=== PATIENT | female | born 1935 | race Caucasian/White ===

== ENCOUNTER → 2017-07-13 | Outpatient (CLI) | payer MEDICARE ==
[2016-08-08 14:18] VITALS: BMI 23.8
[~2017-07-13] MED LIST: ACE325 PO; ACYC800T99 PO; ADV250/50 INH; ALB17R INH; ALB6.7R INH; ALBU8.5H IH; ALIS1TAB PO; AMLO-109 PO; AMLO-110 PO; ASCO500T; AUG875 PO; AZIT-9 PO; BIS5 PO; CALC-864 PO; CALC250T PO; CLOB15CR22 TP; CLOP75TA65 PO; DOCU100T19 PO; DOXA4TAB57 PO; FENT-89 TD; FLUT1DIS28 IH; FLUT250D IH; GAB300 PO; GUALA600 PO; HYDR473S4 PO; IBU200 PO; LEV500 PO; LIDO700A25 TP; LIT300 PO; LORA-1254 PO; LORA-630 PO; LOSA-54 PO; LOSA-57 PO; LOSA100T62 PO; LOSA100T67 PO; METO50TA19 PO; MOME13HF INH; NEB5 PO; OMEP40CA48 PO; OND4 PO; ONDA4TAB PO; ONDA4TAB9 PO; ONDA4TAB97 PO; OSE75 PO; OXYGEN INH; PER PO; PRE10 PO; PRED20TA6 PO; RABE20TA33; RABE20TA33 PO; RAMI10CA62 PO; VITA200C22; [UNRECOGNIZED DRUG - CODE] PO; sodium chloride PO
[2017-07-13 14:34] LABS: PLATELET COUNT, AUTOMATED 249 K/uL (150-450)
--- NOTE | 2017-07-13 15:00 | EKG ---
[place] [facility] [place] MILVIA LÓPEZ : [id number] MR: [id number] V: [id number] EXAM DATE: ORDERING PHYSICIAN: MINH GARCIA TECHNOLOGIST: PIEDAD RIVAS Test Reason : IRREGULAR HR Blood Pressure : / mmHG Vent. Rate : 093 BPM Atrial Rate : 093 BPM P-R Int : 152 ms QRS Dur : 090 ms QT Int : 344 ms P-R-T Axes : 075 057 069 degrees QTc Int : 427 ms Normal sinus rhythm Nonspecific ST and T wave abnormality Abnormal ECG When compared with ECG of 18-JUN-2013 13:59, T wave inversion now evident in Lateral leads Referred By: RADHA Confirmed By:
== END ==
LOC: LAB 13:46
PROVIDERS: ATTEND Nurse Practitioner Primary Care
DX: R53.1 Weakness (principal); R19.7 Diarrhea, unspecified; R94.31 Abnormal electrocardiogram [ECG] [EKG]
CPT/HCPCS: 36415; 82040; 82247; 82310; 82374; 82435; 82565; 82947; 83880; 84075; 84132; 84155; 84295; 84450; 84460; 84484; 84520; 85025

== ENCOUNTER → 2017-09-12 | Outpatient (CLI) | payer MEDICARE ==
[2016-08-08 14:18] VITALS: BMI 23.8
[~2017-09-12] MED LIST changes: +FLUT1AER INH; +IPRA3AMP21 IH; +TIOT4MIS5 INH
--- NOTE | 2017-09-12 11:15 | RADIOLOGY IMAGING REPORT ---
FACILITY: [facility] PATIENT NAME: Svetlana Hall : 1935 MR: [id number] V: [id number] EXAM DATE: ORDERING PHYSICIAN: MINH GARCIA TECHNOLOGIST: Location: [facility] [place] Patient: Svetlana Hall : 1935 Visit/Account:[id number] Date of Sevice: 09/12/2017 CHEST PA AND LAT COMPARISON: August 07, 2016 single view chest HISTORY: Shortness of breath with wheezing for one week and history of asthma FINDINGS: CARDIAC/VASC: No cardiac silhouette abnormality or cardiomegaly. Unremarkable pulmonary vasculatu re. MEDIASTINUM: No visible mass or adenopathy. Atherosclerotic calcifications in the aortic arch. LUNGS/PLEURA: No pneumothorax. There is a new linear opacity adjacent to the right hilum consistent with minor atelectasis or scarring. No significant pulmonary parenchymal abnormalities. No effusion or pleural thickening. BONES: No fracture or visible bony lesion. Minor thoracic spine degenerative change. OTHER:Negative. IMPRESSION: Right perihilar atelectasis or scarring which is new from July 2016. Report Dictated By: Pacheco Burks at 09/12/2017 11:08 AM Report E-Signed By: Pacheco Burks at 09/12/2017 11:10 AM WSN:[id number]
== END ==
LOC: RAD 10:24
PROVIDERS: ATTEND Nurse Practitioner Primary Care
DX: I70.0 Atherosclerosis of aorta (principal); R91.8 Other nonspecific abnormal finding of lung field
CPT/HCPCS: 71046

== ENCOUNTER → 2017-09-23 | Outpatient (CLI) | payer MEDICARE ==
[2016-08-08 14:18] VITALS: BMI 23.8
[~2017-09-23] MED LIST changes: +FURO-45 PO; +METO100T20 PO; +NEBU1EAC25 INH; +PNEU0.5D3 IM
[2017-09-23 10:00] LABS: PLATELET COUNT, AUTOMATED 268 K/uL (150-450)
== END ==
LOC: LAB 09:24
PROVIDERS: ATTEND Internal Medicine
DX: J45.909 Unspecified asthma, uncomplicated (principal); I10 Essential (primary) hypertension; E22.2 Syndrome of inappropriate secretion of antidiuretic hormone
CPT/HCPCS: 36415; 82040; 82247; 82310; 82374; 82435; 82565; 82947; 84075; 84132; 84155; 84295; 84443; 84450; 84460; 84520; 85025

== ENCOUNTER → 2017-10-20 | Outpatient (CLI) | payer MEDICARE ==
[2016-08-08 14:18] VITALS: BMI 23.8
[~2017-10-20] MED LIST changes: +OMEP-125 PO
[2017-10-20 09:23] LABS: PLATELET COUNT, AUTOMATED 259 K/uL (150-450)
== END ==
LOC: LAB 08:56
PROVIDERS: ATTEND Internal Medicine
DX: I10 Essential (primary) hypertension (principal); E87.1 Hypo-osmolality and hyponatremia; E22.2 Syndrome of inappropriate secretion of antidiuretic hormone
CPT/HCPCS: 36415; 82040; 82247; 82310; 82374; 82435; 82565; 82947; 84075; 84132; 84155; 84295; 84450; 84460; 84520; 85025

== ENCOUNTER → 2017-11-11 | Outpatient (CLI) | payer MEDICARE ==
[2016-08-08 14:18] VITALS: BMI 23.8
[~2017-11-11] MED LIST changes: +AZIT-17 PO; +MAGN400T36 PO; +PRED-420 PO; +SODCTAB PO
[2017-11-11 09:42] LABS: PLATELET COUNT, AUTOMATED 239 K/uL (150-450)
== END ==
LOC: LAB 09:28
PROVIDERS: ATTEND Internal Medicine
DX: J45.901 Unspecified asthma with (acute) exacerbation (principal); I10 Essential (primary) hypertension; E87.1 Hypo-osmolality and hyponatremia; E22.2 Syndrome of inappropriate secretion of antidiuretic hormone
CPT/HCPCS: 36415; 82040; 82247; 82310; 82374; 82435; 82565; 82947; 83735; 84075; 84132; 84155; 84295; 84450; 84460; 84520; 85025

== ENCOUNTER 2017-11-14 11:57 | Inpatient (IN) | payer MEDICARE ==
[~2017-11-14] VITALS: Ht 147.3 cm; Wt 53.8 kg
[~2017-11-14 11:57] MED LIST changes: -SODCTAB PO
[2017-11-14 12:25] VITALS: BP 177/78
[2017-11-14] MEDS ORDERED: NON-FORMULARY MEDICATION MISCELL (Oxygen 2 L) INH SCH (12:35)
[2017-11-14] MEDS ORDERED: ALBUTEROL 2.5 MG/3 ML NEB NEB PRN (12:35)
[2017-11-14] MEDS ORDERED: SODCTAB PO (12:41)
--- NOTE | 2017-11-14 12:51 | EKG ---
FACILITY: [facility] PATIENT NAME: MILVIA LÓPEZ : [id number] MR: [id number] V: [id number] EXAM DATE: ORDERING PHYSICIAN: RICHARD LYLES TECHNOLOGIST: ARIANNA Zacarias Reason : SOB Blood Pressure : / mmHG Vent. Rate : 071 BPM Atrial Rate : 071 BPM P-R Int : 150 ms QRS Dur : 092 ms QT Int : 386 ms P-R-T Axes : 058 034 029 degrees QTc Int : 419 ms Sinus rhythm with premature supraventricular complexes Decreased R wave progression anteriorly No acute appearing ST-T findings Confirmed by DAMON VOSS ([id number]) on 11/14/2017 12:54:37 PM Referred By: RAFAL Confirmed By:DAMON VOSS
[2017-11-14 14:19] LABS: PLATELET COUNT, AUTOMATED 290 K/uL (150-450)
--- NOTE | 2017-11-14 14:40 | History & Physical - General ---
History of Present Illness Chief Complaint Shortness of breath and wheezing History of Present Illness This patient is a pleasant 82-year-old female well-known to me who came in today for the follow-up of difficulty breathing patient was seen here on because of dyspnea on exertion and wheezing cough without any sputum production she was placed on prednisone 10 mg 3 times a day and Z-Juancarlos she usually takes oxygen at night but does not use it during the daytime however she was advised to use oxygen during the daytime also she did not have any fever or chills she also has DuoNeb nebulizer at home that she is using 4 times a day she return for follow-up visit today to the office and mentioned that she has not been feeling any better her room air oxygen saturation was 88-89% with 2 -3 L she was more than 90%. She was having visible difficulty breathing when she came in but after one nebulizer treatment with DuoNeb and resting for 15 minutes she improved. Chest x-ray done today has not shown any CHF I worry does show hyperinflation and prominent hilar shadow she also had right perihilar scarring/atelectasis. She has no history of congestive heart failure Hospital history significant for hypertension and is currently on losartan and metoprolol but blood pressures are still elevated Past medical history significant for hyponatremia and is on sodium chloride tablets 1 g every day which might be contributing to her elevated blood pressures ROS: Constitutional: Reports: Weakness, Denies: Fever, Chills, Malaise, Diaphoresis, Weight Loss ROS: Eyes: Denies: Eye Pain, Itchy Eye ROS: HENT: Denies: Ear Drainage, Ear Pain, Ear Pressure ROS: Neurological: Denies Syncope, Denies Dizziness, Denies Vertigo ROS: Respiratory: Reports Dyspnea, Reports SOB at Rest, Reports SOB w/ Exertion , Reports Wheezing, Reports Non-Productive Cough ROS: Cardiac: Denies Chest Pain at Rest, Denies Palpitations, Denies Peripheral Edema ROS: Gastrointestinal: Denies Nausea, Denies Vomiting, Denies Diarrhea ROS: Genitourinary: Denies Urinary Frequency, Denies Dyuria, Denies Hematuria ROS: Integumentary: Denies Rash, Denies Lesions, Denies Laceration ROS: Psych: Denies Depression, Denies Anxiety, Denies Insomnia ROS: Endocrine: Denies Intolerence to Heat, Denies Intolerence to Cold History Problems: (1) GERD (gastroesophageal reflux disease) Status: Chronic (2) TIA (transient ischemic attack) Status: Chronic (3) Low back pain Status: Chronic (4) Asthma Status: Chronic (5) SIADH (syndrome of inappropriate ADH production) Status: Chronic (6) Hyponatremia Status: Chronic (7) Hypertension Status: Chronic (8) Asthma exacerbation Status: Acute Home Meds Active Scripts Magnesium Oxide (MAGNESIUM OXIDE) 400 Mg Tablet, 400 MG PO QDAY, #90 TAB 1 Refill Prov:RICHARD LYLES MD 11/14/17 Prednisone 10 Mg Tab (PREDNISONE 10 MG TAB) 10 Mg Tab.ds.pk, 10 MG PO TID, #21 TAB Prov:RICHARD LYLES MD 11/11/17 Azithromycin (Z-PACK) 250 Mg Tablet, 1 DOSE-PACK PO DIRECTED, #1 DOSE-PACK 2 TABLETS DAY ONE THEN 1 TABLET EVERY DAY FOR THE NEXT 4 DAYS. Prov:RICHARD LYLES MD 11/11/17 Furosemide (FUROSEMIDE) 20 Mg Tablet, 1 TAB PO QDAY, #30 TAB 3 Refills Prov:RICHARD LYLES MD 09/23/17 Losartan Potassium (LOSARTAN POTASSIUM) 100 Mg Tablet, 100 MG PO QDAY, #90 TAB 3 Refills Prov:RICHARD LYLES MD 09/23/17 Ipratropium/Albuterol Sulfate (IPRAT-ALBUT 0.5-3(2.5) MG/3 ML) 3 Ml Ampul.neb, 3 ML IH QID Y for SHORTNESS OF BREATH, #100 ML 6 Refills Prov:RICHARD LYLES MD 09/23/17 Nebulizer (Aeroneb Go Nebuliser) 1 Each Each, UNIT INH for asthma, #1 Prov:RICHARD LYLES MD 09/23/17 Metoprolol Succinate (METOPROLOL SUCCINATE) 100 Mg Tab.er.24h, 1 TAB PO QDAY, # 90 TAB 2 Refills Prov:RICHARD LYLES MD 09/23/17 Albuterol Sulfate 90 Mcg/Act (PROAIR HFA 90 MCG/ACT) 8.5 Gm Hfa.aer.ad, 2 PUFF IH QID, #3 INHALER 3 Refills Prov:ALEM CHEEMA MD 05/02/17 Reported Medications Sodium Chloride (SODIUM CHLORIDE) 1 Gm Tab, 1 GM PO DAILY, TAB 11/14/17 Omeprazole (OMEPRAZOLE) 20 Mg Capsule.dr, 1 CAP PO QDAY, CAP 09/29/17 Oxygen (Oxygen) 2 L Inha, 2 L INH HS 10/03/12 Clopidogrel Bisulfate (PLAVIX (OR EQUIV)) 75 Mg Tab, 75 MG PO DAILY, #30 0 Refills 05/11/12 Discontinued Reported Medications Magnesium Oxide (MAGNESIUM OXIDE) 400 Mg Tablet, 400 MG PO DAILY 11/11/17 Calcium Carb & Cit/Vitamin D3 (CITRACAL + D ER TABLET) 1 Each Tablet.er, 3 EACH PO DAILY 02/11/17 Discontinued Scripts Fluticasone/Salmeterol (ADVAIR 250-50 DISKUS) 1 Each Disk.w.dev, 1 EACH IH BID, #1 DISK 4 Refills Prov:RICHARD LYLES MD 11/11/17 [sodium chloride ] No Conflict Check, 1 GM PO QDAY, #90 1 Refill Prov:RICHARD LYLES MD 10/20/17 Allergies: Coded Allergies: montelukast (Verified Allergy, Mild, ITCHING AND RASH, 08/07/16) phenobarbital (Verified Allergy, Mild, RASH, 08/07/16) Patient History: Blood clots FATHER, Cervical cancer CHILD, , Age:59 Diabetes mellitus CHILD CHILD FH: breast cancer siblings x 8 ( sister ) FH: heart attack FATHER, MOTHER, siblings x 8 (Brother) No pertinent family history CHILD CHILD Hx Smoking: No Smoking Status: Never Smoker Exposure to Second Hand Smoke?: Yes Caffeine Intake: Coffee, Soda Caffeine/Cups Per Day: 1C/day Hx Alcohol Use: Yes Hx Substance Use Disorder: No Social Drug Use: Never Exam Constitutional: Well Nourished, Well Developed, No Distress Eyes: PERRL, Conjunctivae Clear, Sclera Clear ENT: Normal Neck: Full Range of Motion All [place]: Prolonged Expiratory Phase, Expiratory Wheezes, Ronchi Cardiac: Regular Rate & Rhythm, No Gallop, No JVD, No Murmur, No Edema Inspection: Flat Percussion: All Quadrants Tympanic Palpation: Soft, Non-tender, No Guarding, No Hepatosplenomegaly Bowel Sounds: Active to all 4 Quadrants Lymph: No Cervical Lymphadenopathy Neurological: Alert & Oriented X3, Cranial Nerves II-XII Intact, Deep Tendon Reflexes Intact Medical Decision Making Data Points Result Diagram: 11/14/17 1311 11/14/17 1311 EKG / Imaging Monitor Interpretation: NSR with PACs Assessment and Plan Problems: (1) Asthma exacerbation Status: Acute Assessment & Plan: Patient has asthma exacerbation likely related to acute bronchitis she did not respond to by mouth prednisone and antibiotics at home plan is to admit her to the hospital and placed on IV steroids along with nebulizer treatment and continue Zithromax (2) Hyponatremia Status: Chronic Assessment & Plan: Patient has history of chronic hyponatremia 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 Today I want to give her 1 L of IV fluids she is also on furosemide and will recheck labs tomorrow (3) SIADH (syndrome of inappropriate ADH production) Status: Chronic Assessment & Plan: Likely cause of hyponatremia (4) Hypertension Status: Chronic Assessment & Plan: Blood pressure is elevated patient is currently on losartan and metoprolol and will continue with that and monitor blood pressure (5) GERD (gastroesophageal reflux disease) Status: Chronic Venous Thromboembolism VTE Risk Physician Assess for VTE Risk: Yes Patient's VTE Risk: Low VTE Diagnostic Test 2 Days Prior to Admit: No Antithrombotics Is Pt On Any Antithrombotics?: Yes RICHARD LYLES MD Nov 14, 2017 14:40
[2017-11-14] MEDS: ALBUTEROL 2.5 MG/3 ML NEB NEB SCH (17:02)
[2017-11-14] MEDS: SALMETEROL/FLUTIC 250/50 1 INH INH SCH (17:08)
[2017-11-14 17:30] VITALS: BP 143/87
[2017-11-14] MEDS: KCL/NS* 20 MEQ/1000 ML PREMIX 1,000 ML IV PRN (17:41)
[2017-11-14] MEDS: methylPREDNIS SUCC 125 MG/2ML IVP SCH (17:42)
[2017-11-14 19:02] VITALS: BP 139/62
[2017-11-14] MEDS: MAGNESIUM OXIDE 400 MG TAB PO SCH (20:14)
[2017-11-15] MEDS: methylPREDNIS SUCC 125 MG/2ML IVP SCH ×3 (00:39→17:38)
[2017-11-15 00:42] VITALS: BP 123/73
[2017-11-15] MEDS: KCL/NS* 20 MEQ/1000 ML PREMIX 1,000 ML IV PRN (05:23)
[2017-11-15 05:24] VITALS: BP 174/86
[2017-11-15] MEDS: SALMETEROL/FLUTIC 250/50 1 INH INH SCH ×2 (05:42→16:58)
[2017-11-15] MEDS: ALBUTEROL 2.5 MG/3 ML NEB NEB SCH ×3 (05:42→16:58)
[2017-11-15 06:09] LABS: PLATELET COUNT, AUTOMATED 241 K/uL (150-450)
[2017-11-15 07:56] VITALS: BP 145/65
[2017-11-15] MEDS ORDERED: IOPAMIDOL 76% 75 ML INFUS BTL 75 ML ONE (08:14)
[2017-11-15] MEDS ORDERED: MAGNESIUM OXIDE 400 MG TAB PO SCH (09:00)
[2017-11-15] MEDS: ENOXAPARIN 40 MG/0.4ML SYR SC SCH (09:33)
[2017-11-15] MEDS: METOPROLOL SUCC XL 50 MG TABCR 50 MG TAB.ER.24H PO SCH (09:33)
[2017-11-15] MEDS: PANTOPRAZOLE SOD 40 MG TABEC PO SCH (09:33)
[2017-11-15] MEDS: LOSARTAN POTASSIUM 50 MG TAB PO SCH (09:33)
[2017-11-15] MEDS: FUROSEMIDE 20 MG TAB PO SCH (09:33)
[2017-11-15] MEDS: CLOPIDOGREL BISULFATE 75MG TAB PO SCH (09:33)
[2017-11-15] MEDS: MAGNESIUM OXIDE 400 MG TAB PO SCH ×2 (09:34→20:32)
[2017-11-15] MEDS: AZITHROMYCIN 250 MG TAB PO SCH (09:34)
--- NOTE | 2017-11-15 09:40 | RADIOLOGY IMAGING REPORT ---
FACILITY: [facility] PATIENT NAME: Svetlana Hall : 1935 MR: [id number] V: [id number] EXAM DATE: ORDERING PHYSICIAN: RICHARD LYLES TECHNOLOGIST: Location: [facility] [place] Patient: Svetlana Hall : 1935 Visit/Account:[id number] Date of Sevice: 11/15/2017 CHEST W W/O CONTRAST History: asthma, cough ADDITIONAL CLINICAL HISTORY: None TECHNIQUE: Contiguous axial images were performed through the chest to the level of the adrenal gla nds with and without IV contrast. Coronal and sagittal reformatting was also performed. Dose Loweri ng Technique One of the following dose optimization techniques was utilized in the performance of this exam: Autom ated exposure control; adjustment of the mA and/or kV according to the patient's size; or use of an i terative reconstruction technique. Specific details can be referenced in the facility's radiology C T exam operational policy. Contrast: 75 mL Isovue-370 COMPARISON STUDIES: Single view chest February 04, 2017. Lungs / Pleura: There Is a small amount of airspace consolidation in the dependent portion of both l ower lobes and inferior lingula and right middle lobe which could represent small amount scarring cris edie atelectasis. Coarse linear stranding in the inferior right upper lobe also consistent with scarr ing versus atelectasis. There is central peribronchial thickening bilaterally Mediastinum/nodes: There are multiple AP window lymph nodes the largest measuring approximately 1.9 x 0.8 cm. There are multiple pretracheal lymph nodes the largest measuring 1.4 x 1.1 cm. There Is a right hilar lymph node measuring 1.3 x 1.1 cm. There is a small amount of ill-defined soft tissue density material surrounding the left lower lobe b ronchovascular bundle. The appearance is nonspecific and could represent atelectasis, adenopathy or mass lesion. Heart and vessels: There are mild calcifications in the thoracic aorta and branch vessels Musculoskeletal / Body wall: Gentle S-shaped scoliosis of the thoracolumbar spine with mild spondyl otic changes Upper abdomen: There is a 1.1 cm round hypodensity interpolar region of the left kidney likely repr esenting cyst. Additional smaller cortical hypodensities may represent cysts as well although are to o small to characterize by CT. There is a small hiatal hernia IMPRESSION: There is a small amount of airspace consolidation in the dependent portion of both lower lobes and in ferior lingula and right middle lobe which could represent scarring versus atelectasis. Coarse linear stranding in the inferior right upper lobe also consistent with scarring versus atelect asis There are central peribronchial thickening bilaterally which could be chronic versus an acute peribro nchial inflammatory process. There is a small amount of ill-defined soft tissue density material surrounding the left lower lobe b ronchovascular bundle. The appearance is nonspecific and could represent atelectasis, adenopathy or mass lesion. Short-term interval follow-up recommended Mild mediastinal and right hilar adenopathy which could be reactive although again short-term follow- up recommended. Left renal cyst Small hiatal hernia Report Dictated By: Louisa Cannon MD at 11/15/2017 9:07 AM Report E-Signed By: Louisa Cannon MD at 11/15/2017 9:36 AM CAREYN:NILAY
--- NOTE | 2017-11-15 12:18 | Hospitalist Progress Note ---
Subjective Since seen today for the follow-up she mentioned that she is feeling a little better but still gets short of breath easily and has been coughing but not aiming to bring phlegm. She denies any chest pain blood pressure has been improving sodium is slightly improved CT scan of the chest has been reviewed no obvious pneumonia noted although she does have some abnormalities she's currently on Solu-Medrol IV and Z-Juancarlos along with nebulizer treatment and Advair Is requiring oxygen at 1.5 L/m and has remained afebrile Physical Exam Vital Signs Date Time Temp Pulse Resp B/P (MAP) Pulse Ox O2 Delivery O2 Flow Rate FiO2 11/15/17 11:05 75 20 11/15/17 10:59 93 Nasal Cannula 1.5 11/15/17 07:56 97.8 145/65 (91) Intake and Output 11/16/17 07:00 # Voids 2 # Bowel Movements 2 General Appearance: Alert, Awake, No Acute Distress, Afebrile Neuro: No Gross deficits Eyes: PERRLA Neck: Other (bilateral air entry with prolonged expiration and occasional rhonchi) Cardiovascular: Normal Rhythm & Peripheral Pulses, Regular Rate and Rhythm, No Edema Musculoskeletal: No Weakness/Pain Result Diagram: 11/15/17 0551 11/15/17 0551 Imaging ocation: [facility] [place] Patient: Svetlana Hall : 1935 Visit/Account:[id number] Date of Sev: 11/15/2017 CHEST W W/O CONTRAST History: asthma, cough ADDITIONAL CLINICAL HISTORY: None TECHNIQUE: Contiguous axial images were performed through the chest to the level of the adrenal glands with and without IV contrast. Coronal and sagittal reformatting was also performed. Dose Lowering Technique One of the following dose optimization techniques was utilized in the performance of this exam: Automated exposure control; adjustment of the mA and/ or kV according to the patient's size; or use of an iterative reconstruction technique. Specific details can be referenced in the facility's radiology CT exam operational policy. Contrast: 75 mL Isovue-370 COMPARISON STUDIES: Single view chest February 04, 2017. Lungs / Pleura: There Is a small amount of airspace consolidation in the dependent portion of both lower lobes and inferior lingula and right middle lobe which could represent small amount scarring versus atelectasis. Coarse linear stranding in the inferior right upper lobe also consistent with scarring versus atelectasis. There is central peribronchial thickening bilaterally Mediastinum/nodes: There are multiple AP window lymph nodes the largest measuring approximately 1.9 x 0.8 cm. There are multiple pretracheal lymph nodes the largest measuring 1.4 x 1.1 cm. There Is a right hilar lymph node measuring 1.3 x 1.1 cm. There is a small amount of ill-defined soft tissue density material surrounding the left lower lobe bronchovascular bundle. The appearance is nonspecific and could represent atelectasis, adenopathy or mass lesion. Heart and vessels: There are mild calcifications in the thoracic aorta and branch vessels Musculoskeletal / Body wall: Gentle S-shaped scoliosis of the thoracolumbar spine with mild spondylotic changes Upper abdomen: There is a 1.1 cm round hypodensity interpolar region of the left kidney likely representing cyst. Additional smaller cortical hypodensities may represent cysts as well although are too small to characterize by CT. There is a small hiatal hernia IMPRESSION: There is a small amount of airspace consolidation in the dependent portion of both lower lobes and inferior lingula and right middle lobe which could represent scarring versus atelectasis. Coarse linear stranding in the inferior right upper lobe also consistent with scarring versus atelectasis There are central peribronchial thickening bilaterally which could be chronic versus an acute peribronchial inflammatory process. There is a small amount of ill-defined soft tissue density material surrounding the left lower lobe bronchovascular bundle. The appearance is nonspecific and could represent atelectasis, adenopathy or mass lesion. Short-term interval follow-up recommended Mild mediastinal and right hilar adenopathy which could be reactive although again short-term follow-up recommended. Left renal cyst Monitor Interpretation: NSR with PACs Assessment and Plan Problems: (1) Asthma exacerbation Status: Acute Assessment & Plan: 11/14/17 Patient has asthma exacerbation likely related to acute bronchitis she did not respond to by mouth prednisone and antibiotics at home plan is to admit her to the hospital and placed on IV steroids along with nebulizer treatment and continue Zithromax 11/15/17 physical little better but continues to be short of breath and is coughing without bringing up any sputum CT scan of the chest has been reviewed plan is to continue with IV steroids and nebulizer and Advair along with Zithromax and reevaluate tomorrow (2) Hyponatremia Status: Chronic Assessment & Plan: 11/14/17 Patient has history of chronic hyponatremia 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 Today I want to give her 1 L of IV fluids she is also on furosemide and will recheck labs tomorrow 11/15/17 sodium slightly better at 127 plan is to discontinue IV fluids and restart her on sodium chloride tablets at 500 mg twice a day we will recheck sodium levels tomorrow (3) SIADH (syndrome of inappropriate ADH production) Status: Chronic Assessment & Plan: Likely cause of hyponatremia (4) Hypertension Status: Chronic Assessment & Plan: Blood pressure is elevated patient is currently on losartan and metoprolol and will continue with that and monitor blood pressure 11/15/17 blood pressure appears to have improved we will continue with losartan and metoprolol hydrochlorothiazide was discontinued because of hyponatremia and has been placed on furosemide seems to be tolerating it well (5) GERD (gastroesophageal reflux disease) Status: Chronic Exam Sepsis Risk: No Definite Risk Problem Qualifiers (1) Asthma exacerbation: Asthma severity: moderate Asthma persistence: persistent Qualified Codes: J45.41 - Moderate persistent asthma with (acute) exacerbation RICHARD LYLES MD November 15, 2017 12:18
[2017-11-15 12:34] VITALS: BP 129/99
[2017-11-15] MEDS: guaiFENesin 600 MG TABCR PO SCH ×2 (12:36→20:31)
[2017-11-15 12:41] VITALS: Ht 147.3 cm; Wt 53.8 kg
[2017-11-15 15:15] VITALS: BP 136/81
[2017-11-15 20:07] VITALS: BP 154/75
[2017-11-15] MEDS: SODIUM CHLORIDE 1 GR TAB PO SCH (20:31)
[2017-11-16] MEDS: methylPREDNIS SUCC 125 MG/2ML IVP SCH ×2 (01:31→08:48)
[2017-11-16 01:32] VITALS: BP 144/71
[2017-11-16] MEDS: ALBUTEROL 2.5 MG/3 ML NEB NEB SCH ×2 (05:24→11:08)
[2017-11-16] MEDS: SALMETEROL/FLUTIC 250/50 1 INH INH SCH (05:24)
[2017-11-16 06:18] VITALS: BP 128/51
[2017-11-16] MEDS: ENOXAPARIN 40 MG/0.4ML SYR SC SCH (08:48)
[2017-11-16] MEDS: CLOPIDOGREL BISULFATE 75MG TAB PO SCH (08:49)
[2017-11-16] MEDS: SODIUM CHLORIDE 1 GR TAB PO SCH (08:49)
[2017-11-16] MEDS: guaiFENesin 600 MG TABCR PO SCH (08:49)
[2017-11-16] MEDS: AZITHROMYCIN 250 MG TAB PO SCH (08:49)
[2017-11-16] MEDS: MAGNESIUM OXIDE 400 MG TAB PO SCH (08:49)
[2017-11-16] MEDS: METOPROLOL SUCC XL 50 MG TABCR 50 MG TAB.ER.24H PO SCH (08:50)
[2017-11-16] MEDS: LOSARTAN POTASSIUM 50 MG TAB PO SCH (08:50)
[2017-11-16] MEDS: FUROSEMIDE 20 MG TAB PO SCH (08:50)
[2017-11-16] MEDS: PANTOPRAZOLE SOD 40 MG TABEC PO SCH (08:50)
[2017-11-16 08:51] VITALS: BP 126/57
[2017-11-16] MEDS ORDERED: PRED-420 PO (11:58)
[2017-11-16] MEDS ORDERED: FLUT1DIS28 INH (11:58)
[2017-11-16] MEDS ORDERED: SODCTAB PO (11:58)
[2017-11-16] MEDS ORDERED: GUAI600T57 PO (11:58)
--- NOTE | 2017-11-17 08:58 | Hospitalist Depart ---
Discharge Summary Reason for Hosp/Final Diag: (1) Asthma exacerbation Status: Acute Hospital Course & Plan: 11/14/17 Patient has asthma exacerbation likely related to acute bronchitis she did not respond to by mouth prednisone and antibiotics at home plan is to admit her to the hospital and placed on IV steroids along with nebulizer treatment and continue Zithromax 11/15/17 physical little better but continues to be short of breath and is coughing without bringing up any sputum CT scan of the chest has been reviewed plan is to continue with IV steroids and nebulizer and Advair along with Zithromax and reevaluate tomorrow 11/16/17 and was admitted because of acute asthma exacerbation likely related to acute bronchitis. Patient responded well to treatment with Solu-Medrol, nebulizer treatment and Advair she was continued on Zithromax today she is feeling better she is coughing but able to bring up clear to light yellow phlegm since she has been on Mucinex overall she is less short of breath and request to go home but it did show ill-defined soft tissue density in the left lower lobe could be atelectasis adenopathy or mass she also has mild mediastinal and right hilar adenopathy and the plan is to repeat CT scan in 6 weeks patient is also to follow up with me within one week she will be discharged on tapering dose of prednisone, Zithromax albuterol/ipratropium by nebulizer and Advair she has oxygen at home and will continue to use it she is to contact the the office or go to the emergency room if symptoms get worse (2) Hyponatremia Status: Chronic Hospital Course & Plan: 11/14/17 Patient has history of chronic hyponatremia 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 Hospital Course & Plan: Likely cause of hyponatremia (4) Hypertension Status: Chronic Hospital Course & Plan: Blood pressure is elevated patient is currently on losartan and metoprolol and will continue with that and monitor blood pressure 11/15/17 blood pressure appears to have improved we will continue with losartan and metoprolol hydrochlorothiazide was discontinued because of hyponatremia and has been placed on furosemide seems to be tolerating it well 11/16/17 blood pressure appears to be under better control and will continue with the present treatment (5) GERD (gastroesophageal reflux disease) Status: Chronic Departure Weight (Pounds): 118 Weight (Ounces): 9.0 Result Diagram: 11/15/17 0551 11/16/17 0705 Imaging CHEST W W/O CONTRAST History: asthma, cough ADDITIONAL CLINICAL HISTORY: None TECHNIQUE: Contiguous axial images were performed through the chest to the level of the adrenal glands with and without IV contrast. Coronal and sagittal reformatting was also performed. Dose Lowering Technique One of the following dose optimization techniques was utilized in the performance of this exam: Automated exposure control; adjustment of the mA and/ or kV according to the patient's size; or use of an iterative reconstruction technique. Specific details can be referenced in the facility's radiology CT exam operational policy. Contrast: 75 mL Isovue-370 COMPARISON STUDIES: Single view chest February 04, 2017. Lungs / Pleura: There Is a small amount of airspace consolidation in the dependent portion of both lower lobes and inferior lingula and right middle lobe which could represent small amount scarring versus atelectasis. Coarse linear stranding in the inferior right upper lobe also consistent with scarring versus atelectasis. There is central peribronchial thickening bilaterally Mediastinum/nodes: There are multiple AP window lymph nodes the largest measuring approximately 1.9 x 0.8 cm. There are multiple pretracheal lymph nodes the largest measuring 1.4 x 1.1 cm. There Is a right hilar lymph node measuring 1.3 x 1.1 cm. There is a small amount of ill-defined soft tissue density material surrounding the left lower lobe bronchovascular bundle. The appearance is nonspecific and could represent atelectasis, adenopathy or mass lesion. Heart and vessels: There are mild calcifications in the thoracic aorta and branch vessels Musculoskeletal / Body wall: Gentle S-shaped scoliosis of the thoracolumbar spine with mild spondylotic changes Upper abdomen: There is a 1.1 cm round hypodensity interpolar region of the left kidney likely representing cyst. Additional smaller cortical hypodensities may represent cysts as well although are too small to characterize by CT. There is a small hiatal hernia IMPRESSION: There is a small amount of airspace consolidation in the dependent portion of both lower lobes and inferior lingula and right middle lobe which could represent scarring versus atelectasis. Coarse linear stranding in the inferior right upper lobe also consistent with scarring versus atelectasis There are central peribronchial thickening bilaterally which could be chronic versus an acute peribronchial inflammatory process. There is a small amount of ill-defined soft tissue density material surrounding the left lower lobe bronchovascular bundle. The appearance is nonspecific and could represent atelectasis, adenopathy or mass lesion. Short-term interval follow-up recommended Mild mediastinal and right hilar adenopathy which could be reactive although again short-term follow-up recommended. Left renal cyst Small hiatal hernia Report Dictated By: Louisa Cannon MD at 11/15/2017 9:07 AM Report E-Signed By: Louisa Cannon MD at 11/15/2017 9:36 A Condition: Improved Discharge: Home, Self Care Time Spent: < 30 min Discharge Instructions Home Meds Active Scripts Prednisone 10 Mg Tab (PREDNISONE 10 MG TAB) 10 Mg Tab.ds.pk, 10 MG PO DAILY, # 40 TAB 4 tablets x 3 days 3 tablets x 3 days 2 tablets x 3 days 1 tablet x 3 days .5 tablets x 3 days than stop Prov:RICHARD CHERY MD 11/16/17 Sodium Chloride (SODIUM CHLORIDE) 1 Gm Tab, 0.5 GM PO BID, #30 TAB 6 Refills Prov:RICHARD CHERY MD 11/16/17 Guaifenesin (MUCINEX) 600 Mg Tablet.er, 600 MG PO BID Y for cough, #30 TAB 1 Refill Prov:RICHARD CHERY MD 11/16/17 Fluticasone/Salmeterol (ADVAIR 250-50 DISKUS) 1 Each Disk.w.dev, 1 EACH INH BIDR , #1 DISK 3 Refills Prov:RICHARD CHERY MD 11/16/17 Magnesium Oxide (MAGNESIUM OXIDE) 400 Mg Tablet, 400 MG PO QDAY, #90 TAB 1 Refill Prov:RICHARD CEHRY MD 11/14/17 Azithromycin (Z-PACK) 250 Mg Tablet, 1 DOSE-PACK PO DIRECTED, #1 DOSE-PACK 2 TABLETS DAY ONE THEN 1 TABLET EVERY DAY FOR THE NEXT 4 DAYS. Prov:RICHARD CHERY MD 11/11/17 Furosemide (FUROSEMIDE) 20 Mg Tablet, 1 TAB PO QDAY, #30 TAB 3 Refills Prov:RICHARD CHERY MD 09/23/17 Losartan Potassium (LOSARTAN POTASSIUM) 100 Mg Tablet, 100 MG PO QDAY, #90 TAB 3 Refills Prov:RICHARD CHERY MD 09/23/17 Ipratropium/Albuterol Sulfate (IPRAT-ALBUT 0.5-3(2.5) MG/3 ML) 3 Ml Ampul.neb, 3 ML IH QID Y for SHORTNESS OF BREATH, #100 ML 6 Refills Prov:RICHARD CHERY MD 09/23/17 Nebulizer (Aeroneb Go Nebuliser) 1 Each Each, UNIT INH for asthma, #1 Prov:RICHARD CHERY MD 09/23/17 Metoprolol Succinate (METOPROLOL SUCCINATE) 100 Mg Tab.er.24h, 1 TAB PO QDAY, # 90 TAB 2 Refills Prov:RICHARD CHERY MD 09/23/17 Albuterol Sulfate 90 Mcg/Act (PROAIR HFA 90 MCG/ACT) 8.5 Gm Hfa.aer.ad, 2 PUFF IH QID, #3 INHALER 3 Refills Prov:ALEM CHEEMA MD 05/02/17 Reported Medications Omeprazole (OMEPRAZOLE) 20 Mg Capsule.dr, 1 CAP PO QDAY, CAP 09/29/17 Oxygen (Oxygen) 2 L Inha, 2 L INH HS 10/03/12 Clopidogrel Bisulfate (PLAVIX (OR EQUIV)) 75 Mg Tab, 75 MG PO DAILY, #30 0 Refills 05/11/12 Discontinued Reported Medications Sodium Chloride (SODIUM CHLORIDE) 1 Gm Tab, 1 GM PO DAILY, TAB 11/14/17 Magnesium Oxide (MAGNESIUM OXIDE) 400 Mg Tablet, 400 MG PO DAILY 11/11/17 Calcium Carb & Cit/Vitamin D3 (CITRACAL + D ER TABLET) 1 Each Tablet.er, 3 EACH PO DAILY 02/11/17 Discontinued Scripts Prednisone 10 Mg Tab (PREDNISONE 10 MG TAB) 10 Mg Tab.ds.pk, 10 MG PO TID, #21 TAB Prov:RICHARD CHERY MD 11/11/17 Fluticasone/Salmeterol (ADVAIR 250-50 DISKUS) 1 Each Disk.w.dev, 1 EACH IH BID, #1 DISK 4 Refills Prov:RICHARD CHERY MD 11/11/17 [sodium chloride ] No Conflict Check, 1 GM PO QDAY, #90 1 Refill Prov:RICHARD CHERY MD 10/20/17 Diet: Regular Activity: As Tolerated Special Instructions: Dr Chery's office will call you with a follow up appointment time Venous Thromboembolism Antithrombotics Is Pt On Any Antithrombotics?: Yes Problem Qualifiers (1) Asthma exacerbation: Asthma severity: moderate Asthma persistence: persistent Qualified Codes: J45.41 - Moderate persistent asthma with (acute) exacerbation RICHARD CHERY MD November 17, 2017 08:58
== END 2017-11-16 12:11 | disposition home or self-care (01) | DRG 202 ==
LOC: MED 11:57 → OBSVTOIN 11:57 → INTOOBSV 11:57
PROVIDERS: ADMIT Internal Medicine; ATTEND Internal Medicine
DX: J45.41 Moderate persistent asthma with (acute) exacerbation (principal); E22.2 Syndrome of inappropriate secretion of antidiuretic hormone; I10 Essential (primary) hypertension; K21.9 Gastro-esophageal reflux disease without esophagitis; Z86.73 Personal history of transient ischemic attack (TIA), and cerebral infarction without residual deficits; J20.9 Acute bronchitis, unspecified; Z88.8 Allergy status to other drugs, medicaments and biological substances; Z90.710 Acquired absence of both cervix and uterus
CPT/HCPCS: 36415; 71270; 82040; 82247; 82310; 82374; 82435; 82565; 82947; 83735; 83880; 84075; 84132; 84155; 84295; 84443; 84450; 84460; 84484; 84520; 85025; 93005; 94640; G0378; G0379; J1650; J2930; J3480; J7613; Q9967

== ENCOUNTER → 2017-11-14 | Outpatient (CLI) | payer MEDICARE ==
[2016-08-08 14:18] VITALS: BMI 23.8
--- NOTE | 2017-11-14 11:18 | RADIOLOGY IMAGING REPORT ---
FACILITY: [facility] PATIENT NAME: Svetlana Hall : 1935 MR: [id number] V: [id number] EXAM DATE: ORDERING PHYSICIAN: RICHARD LYLES TECHNOLOGIST: Location: [facility] Patient: Svetlana Hall : 1935 Visit/Account:[id number] Date of Sevice: 11/14/2017 Exam type: CHEST PA AND LAT History: Cough, shortness of breath times several weeks Comparison: September 12, 2017. Findings: There is hyperinflation of the lung grimes. Small amount of linear scarring/atelectasis the right mi dlung field appears similar to the prior study. The hilar shadows appear prominent. There is no derrick dence of acute appearing infiltrates or overt pulmonary edema. Cardiac silhouette is unchanged multi ple moderate spondylotic changes of the thoracic spine IMPRESSION: 1. Right perihilar scarring/atelectasis appears similar to the prior study Hyperinflation of the lung grimes The hilar shadows appear prominent. This could be related to pulmonary arterial hypertension however if patient's symptoms persist CT of the chest may be helpful for further evaluation Report Dictated By: Louisa Cannon MD at 11/14/2017 11:09 AM Report E-Signed By: Louisa Cannon MD at 11/14/2017 11:13 AM WSN:[id number]
== END ==
LOC: RAD 10:32
PROVIDERS: ATTEND Internal Medicine
DX: R91.8 Other nonspecific abnormal finding of lung field (principal)
CPT/HCPCS: 71046

== ENCOUNTER → 2017-12-29 | Outpatient (CLI) | payer MEDICARE ==
[2017-11-15 12:41] VITALS: BMI 24.7
[~2017-12-29] MED LIST changes: +CLOP75TA PO; +FLUT1DIS28 INH; +GUAI600T57 PO; +SODCTAB PO
[2017-12-29 11:00] LABS: PLATELET COUNT, AUTOMATED 229 K/uL (150-450)
== END ==
LOC: LAB 10:04
PROVIDERS: ATTEND Internal Medicine
DX: J45.909 Unspecified asthma, uncomplicated (principal); I10 Essential (primary) hypertension; E87.1 Hypo-osmolality and hyponatremia; E22.2 Syndrome of inappropriate secretion of antidiuretic hormone; R59.1 Generalized enlarged lymph nodes
CPT/HCPCS: 36415; 82040; 82247; 82310; 82374; 82435; 82565; 82947; 83735; 84075; 84132; 84155; 84295; 84450; 84460; 84520; 85025

== ENCOUNTER → 2018-01-04 | Outpatient (CLI) | payer MEDICARE ==
[2017-11-15 12:41] VITALS: BMI 24.7
[~2018-01-04] MED LIST changes: +IOPAMIDOL 76% 75 ML INFUS BTL 75 ML ONE
--- NOTE | 2018-01-04 11:51 | RADIOLOGY IMAGING REPORT ---
FACILITY: [facility] - [place] PATIENT NAME: Svetlana Hall : 1935 MR: [id number] V: [id number] EXAM DATE: ORDERING PHYSICIAN: RICHARD LYLES TECHNOLOGIST: Location: [facility] - [place], [place] Patient: Svetlana Hall : 1935 Visit/Account:[id number] Date of Sevice: 01/04/2018 CHEST W W/O CONTRAST History: Asthma, benign hypertension, lymphadenopathy ADDITIONAL CLINICAL HISTORY: None TECHNIQUE: Contiguous axial images were performed through the chest to the level of the adrenal gla nds with and without IV contrast. Coronal and sagittal reformatting was also performed. Dose Loweri ng Technique One of the following dose optimization techniques was utilized in the performance of this exam: Autom ated exposure control; adjustment of the mA and/or kV according to the patient's size; or use of an i terative reconstruction technique. Specific details can be referenced in the facility's radiology C T exam operational policy. Contrast: 75 mL Isovue-370 COMPARISON STUDIES: CTA chest with and without contrast November 15, 2017. Lungs / Pleura: There is chronic scarring/atelectasis in the inferior right middle lobe, lingula, i nferior right upper lobe and both lower lobes similar to the prior study. Mediastinum/nodes: There are multiple AP window and pretracheal lymph nodes appear relatively unchan ged. The previous 1.3 x 1.1 cm right hilar lymph node now measures 1.1 x 0.8 cm. The previously noted soft tissue density material surrounding the left lower lobe bronchovascular bun dle appears less prominent Heart and vessels: Mild calcifications again seen in the thoracic aorta and branch vessels Musculoskeletal / Body wall: Gentle S-shaped scoliosis of the thoracal lumbar spine with mild spond ylotic changes. Stable mild compression fracture of T2 Upper abdomen: 1.1 cm round hypodensity interpolar region left kidney appears unchanged. There is a small hiatal hernia IMPRESSION: Multiple mildly prominent mediastinal lymph nodes appear relatively unchanged. There is been a sligh t decrease in the previous right hilar lymph node Previously noted soft tissue density material surrounding the left lower lobe bronchovascular bundle appears less prominent Chronic scarring/atelectasis in the lungs bilaterally appears stable Additional chronic findings as described Report Dictated By: Louisa Cannon MD at 01/04/2018 10:45 AM Report E-Signed By: Louisa Cannon MD at 01/04/2018 11:47 AM CAREYN:NILAY
== END ==
LOC: CT 01:42
PROVIDERS: ATTEND Internal Medicine
DX: R91.8 Other nonspecific abnormal finding of lung field (principal)
CPT/HCPCS: 36415; 71270; Q9967; 82310; 82374; 82435; 82565; 82947; 84132; 84295; 84520

== ENCOUNTER → 2018-03-02 | Outpatient (CLI) | payer MEDICARE ==
[2017-11-15 12:41] VITALS: BMI 24.7
[~2018-03-02] MED LIST changes: -IOPAMIDOL 76% 75 ML INFUS BTL 75 ML ONE; +IPRA3AMP10 IH; -IPRA3AMP21 IH
== END ==
LOC: RESP 00:49
PROVIDERS: ATTEND Internal Medicine
DX: J98.4 Other disorders of lung (principal)
CPT/HCPCS: 94060; 94726; 94729

== ENCOUNTER → 2018-04-19 | Outpatient (CLI) | payer MEDICARE ==
[2017-11-15 12:41] VITALS: BMI 24.7
[~2018-04-19] MED LIST changes: +AMLO-111 PO; -LOSA100T67 PO; +LOSA100T69 PO
[2018-04-19 17:02] LABS: PLATELET COUNT, AUTOMATED 235 K/uL (150-450)
== END ==
LOC: LAB 15:58
PROVIDERS: ATTEND Internal Medicine
DX: E22.2 Syndrome of inappropriate secretion of antidiuretic hormone (principal); E87.1 Hypo-osmolality and hyponatremia; J45.909 Unspecified asthma, uncomplicated; I10 Essential (primary) hypertension
CPT/HCPCS: 36415; 82040; 82247; 82310; 82374; 82435; 82565; 82947; 84075; 84132; 84155; 84295; 84450; 84460; 84520; 85025

== ENCOUNTER → 2018-05-08 | Outpatient (CLI) | payer MEDICARE ==
[2017-11-15 12:41] VITALS: BMI 24.7
[~2018-05-08] MED LIST changes: +ALBU1.257 IH
[2018-05-08 16:11] LABS: PLATELET COUNT, AUTOMATED 238 K/uL (150-450)
--- NOTE | 2018-05-08 16:44 | RADIOLOGY IMAGING REPORT ---
FACILITY: [facility] PATIENT NAME: Svetlana Hall : 1935 MR: [id number] V: [id number] EXAM DATE: ORDERING PHYSICIAN: MINH GARCIA TECHNOLOGIST: Location: [facility] - [place] Patient: Svetlana Hall : 1935 Visit/Account:[id number] Date of Sevice: 05/08/2018 Study: Frontal and lateral views of the chest Indication: Shortness of breath and cough Comparison study: November 14, 2017 Findings: PA and lateral views of the chest demonstrate no evidence of acute infiltrate. There is no evidence of pleural effusion. There is no evidence of pneumothorax. The mediastinal, cardiac, and diaphragmatic contours are unremarkable. The visualized bony structures are unremarkable. IMPRESSION: Unremarkable chest. Report Dictated By: Srinath Barton at 05/08/2018 4:39 PM Report E-Signed By: Srinath Barton at 05/08/2018 4:40 PM WSN:[id number]
== END ==
LOC: LAB 15:49
PROVIDERS: ATTEND Nurse Practitioner Primary Care
DX: R06.02 Shortness of breath (principal)
CPT/HCPCS: 71046; 82040; 82247; 82310; 82374; 82435; 82565; 82947; 84075; 84132; 84155; 84295; 84450; 84460; 84520; 85025

== ENCOUNTER 2018-05-15 02:58 | Inpatient (IN) | payer MEDICARE ==
[2017-11-15 12:41] VITALS: Wt 57.3 kg
[~2018-05-15 02:58] MED LIST changes: -AZIT-18 PO; -CEF300 PO; -PRED-1 PO
--- NOTE | 2018-05-15 03:16 | ER Report ---
History and Physical Time Seen By MD: 03:15 HPI/ROS CHIEF COMPLAINT: Increasing shortness of breath HISTORY OF PRESENT ILLNESS: 82-year-old female without a history of cardiac disease who is followed by Dr. Chery has been seen over the last several weeks with increasing shortness of breath and a productive cough of mostly clear sputum. Patient notes that she is turned her oxygen up from 2 L to 3 L to maintain her saturations. She is wearing an nmsjlf-gdd-eyyjg as recommended by her primary care physician 1 week ago. She describes tightness across her lower chest. REVIEW OF SYSTEMS: Respiratory: As above Cardiovascular: As above Gastrointestinal: No vomiting, no abdominal pain. Musculoskeletal: No back pain. Allergies: Coded Allergies: montelukast (Verified Allergy, Mild, ITCHING AND RASH, 05/15/18) phenobarbital (Verified Allergy, Mild, RASH, 05/15/18) Home Meds Active Scripts Amlodipine Besylate (AMLODIPINE BESYLATE) 5 Mg Tablet, 1 TAB PO QDAY, #30 TAB 5 Refills Prov:RICHARD CHERY MD 04/19/18 Sodium Chloride (SODIUM CHLORIDE) 1 Gm Tab, 0.5 GM PO BID, #30 TAB 6 Refills Prov:RICHARD CHERY MD 12/29/17 Clopidogrel Bisulfate (CLOPIDOGREL) 75 Mg Tablet, 1 TAB PO QDAY, #90 TAB 3 Refills Prov:RICHARD CHERY MD 12/19/17 Albuterol Sulfate 90 Mcg/Act (PROAIR HFA 90 MCG/ACT) 8.5 Gm Hfa.aer.ad, 2 PUFF IH QID, #3 INHALER 3 Refills Prov:RICHARD CHERY MD 12/19/17 Fluticasone/Salmeterol (ADVAIR 250-50 DISKUS) 1 Each Disk.w.dev, 1 EACH INH BIDR, #1 DISK 3 Refills Prov:RICHARD CHERY MD 11/16/17 Magnesium Oxide (MAGNESIUM OXIDE) 400 Mg Tablet, 400 MG PO QDAY, #90 TAB 1 Refill Prov:RICHARD CHERY MD 11/14/17 Furosemide (FUROSEMIDE) 20 Mg Tablet, 1 TAB PO QDAY, #30 TAB 3 Refills Prov:RICHARD CHERY MD 09/23/17 Losartan Potassium (LOSARTAN POTASSIUM) 100 Mg Tablet, 100 MG PO QDAY, #90 TAB 3 Refills Prov:RICHARD CHERY MD 09/23/17 Ipratropium/Albuterol Sulfate (IPRAT-ALBUT 0.5-3(2.5) MG/3 ML) 3 Ml Ampul.neb, 3 ML IH QID PRN for SHORTNESS OF BREATH, #100 ML 6 Refills Prov:RICHARD CHERY MD 09/23/17 Nebulizer (Aeroneb Go Nebuliser) 1 Each Each, UNIT INH for asthma, #1 Prov:RICHARD CHERY MD 09/23/17 Metoprolol Succinate (METOPROLOL SUCCINATE) 100 Mg Tab.er.24h, 1 TAB PO QDAY, #90 TAB 2 Refills Prov:RICHARD CHERY MD 09/23/17 Reported Medications Omeprazole (OMEPRAZOLE) 20 Mg Capsule.dr, 1 CAP PO QDAY, CAP 09/29/17 Oxygen (Oxygen) 2 L Inha, 2.5 L INH HS 10/03/12 Discontinued Scripts Prednisone (PREDNISONE) 20 Mg Tablet, 1 TAB PO BID for 5 Days, #10 TAB 0 Refills Prov:MINH GARCIA DNP, [employer]-BC 05/08/18 Past Medical/Surgical History Past Medical History Cardiovascular: Reports hx of: hypertension Respiratory: Reports hx of: asthma (Chronic Obstructive Asthma) COPD (with RAD) Gastrointestinal: Reports hx of: GERD hiatal hernia Integumentary: Reports hx of: other integumentary hx Endocrine: Reports hx of: other endocrine history (SIADH; Hyponatremia) Hematology/oncology: Reprots hx of: other cancer history (fibrocystic breast disease) Infectious disease: Reports hx of: other infectious disease (shingles 04/2009) Past Surgical History HEENT: Reports hx of: tonsillectomy Gastrointestinal: Reports hx of: other GI surgery (colonoscopy) Gynecologic: Reports hx of: hysterectomy tubal ligation Reviewed Nurses Notes: Yes Old Medical Records Reviewed: Yes Hx Smoking: No Smoking Status: Never Smoker Exposure to Second Hand Smoke?: Yes Hx Substance Use Disorder: No Hx Alcohol Use: Yes Constitutional Vital Sign - Last 24 Hours 05/15/18 05/15/18 05/15/18 05/15/18 03:02 03:13 03:15 03:15 Temp 99.2 Pulse 107 110 Resp 28 B/P (MAP) 176/73 189/93 (125) Pulse Ox 92 91 O2 Delivery Nasal Cannula O2 Flow Rate 3.0 05/15/18 05/15/18 05/15/18 05/15/18 03:28 03:30 03:34 03:34 Pulse 101 110 Resp 29 20 B/P (MAP) 181/98 (125) Pulse Ox 93 94 O2 Delivery Nasal Cannula O2 Flow Rate 3.0 05/15/18 05/15/18 05/15/18 05/15/18 03:39 03:43 03:54 03:59 Pulse 101 102 103 99 Resp 20 29 28 Pulse Ox 92 92 05/15/18 05/15/18 05/15/18 05/15/18 04:00 04:14 04:19 04:34 Pulse 102 93 101 Resp 29 6 23 B/P (MAP) 159/77 (104) Pulse Ox 93 93 93 05/15/18 05/15/18 05/15/18 05/15/18 04:49 05:19 05:24 05:30 Pulse ??? 89 Resp 33 39 B/P (MAP) 162/99 (120) 162/84 (110) Pulse Ox 92 94 Physical Exam Vital signs stable, tachypnea, tachycardia, hypertensive, pulse ox 91% on 3 L by nasal cannula General Appearance: The patient is alert, has no immediate need for airway protection and no current signs of toxicity. Mild air hunger him a slightly pale appearing, frequent clearing cough ENT: Pupils equal and round no injection. TMs normal, oropharynx with mild erythema, no exudate Respiratory: Chest is non tender, decreased breath sounds bilaterally, expiratory wheezing, no Rales Cardiac: regular rate and rhythm, distant heart sounds, no murmur Gastrointestinal: Abdomen is soft and non tender, no masses, bowel sounds normal. Musculoskeletal: Neck: Neck is supple and non tender. No JVD Extremities have full range of motion and are non tender. No edema, no calf tenderness Skin: No rashes or lesions. DIFFERENTIAL DIAGNOSIS: After history and physical exam differential diagnosis was considered forshortness of breath including but not limited to pulmonary infectious process, COPD, asthma, pulmonary embolus and congestive heart failure. Medical Decision Making Data Points Result Diagram: 05/15/18 0315 05/15/18 0315 Laboratory Hematology Test 05/15/18 03:05 05/15/18 03:15 05/15/18 04:37 Influenza Virus Type A (PCR) Negative (NEGATIVE) Influenza Virus Type B (PCR) Negative (NEGATIVE) Red Blood Count 4.01 M/uL (4.17-5.56) Mean Corpuscular Volume 88.6 fL (80.0-96.0) Mean Corpuscular Hemoglobin 29.8 pg (26.0-33.0) Mean Corpuscular Hemoglobin Concent 33.7 g/dL (32.0-36.0) Red Cell Distribution Width 13.2 % (11.5-14.5) Mean Platelet Volume 7.6 fL (7.2-11.1) Neutrophils (%) (Auto) % (39.4-72.5) Lymphocytes (%) (Auto) % (17.6-49.6) Monocytes (%) (Auto) % (4.1-12.4) Eosinophils (%) (Auto) % (0.4-6.7) Basophils (%) (Auto) % (0.3-1.4) Nucleated RBC Relative Count (auto) /100WBC Neutrophils # (Auto) K/uL (2.0-7.4) Lymphocytes # (Auto) K/uL (1.3-3.6) Monocytes # (Auto) K/uL (0.3-1.0) Eosinophils # (Auto) K/uL (0.0-0.5) Basophils # (Auto) K/uL (0.0-0.1) Nucleated RBC Absolute Count (auto) K/uL Neutrophils % (Manual) 73 % (39.4-72.5) Band Neutrophils % 3 % Lymphocytes % (Manual) 17 % (17.6-49.6) Monocytes % (Manual) 5 % (4.1-12.4) Eosinophils % (Manual) 0 % (0.4-6.7) Basophils % (Manual) 0 % (0.3-1.4) Metamyelocytes % 1 % Myelocytes % 1 % Peripheral Blood Smear Yes Y/N Sodium Level 123 mmol/L (137-145) Potassium Level 4.2 mmol/L (3.5-5.0) Chloride Level 86 mmol/L (98-107) Carbon Dioxide Level 26 mmol/L (22-31) Blood Urea Nitrogen 19 mg/dl (7-18) Creatinine 0.80 mg/dl (0.52-1.04) Glomerular Filtration Rate Calc > 60.0 Random Glucose 103 mg/dl (75-110) Lactate 2.2 mmol/L (0.7-2.1) Calcium Level 9.3 mg/dl (8.4-10.2) Total Bilirubin 0.5 mg/dl (0.2-1.3) Aspartate Amino Transf (AST/SGOT) 25 U/L (0-35) Alanine Aminotransferase (ALT/SGPT) 29 U/L (0-56) Alkaline Phosphatase 55 U/L (0-126) Troponin I < 0.012 ng/ml B-Type Natriuretic Peptide 74 pg/ml (0-100) Total Protein 6.9 g/dl (6.3-8.2) Albumin 4.1 g/dl (3.5-5.0) Urine Color Yellow Urine Clarity Clear Urine pH 6.0 pH (4.8-9.5) Urine Specific [place] 1.013 Urine Protein Negative mg/dL (NEGATIVE) Urine Glucose (UA) Negative mg/dL (NEGATIVE) Urine Ketones Negative mg/dL (NEGATIVE) Urine Blood Negative (NEGATIVE) Urine Nitrite Negative (NEGATIVE) Urine Bilirubin Negative (NEGATIVE) Urine Urobilinogen Negative mg/dL (0.2-1.9) Urine Leukocyte Esterase Trace (NEGATIVE) Urine RBC <1 /HPF (0-2/HPF) Urine WBC <1 /HPF (0-5/HPF) Urine Squamous Epithelial Cells None /LPF (</=FEW) Urine Bacteria Negative /HPF (NONE-FEW) Urine Mucus None /HPF (NONE-FEW) Chemistry Test 05/15/18 03:05 05/15/18 03:15 05/15/18 04:37 Influenza Virus Type A (PCR) Negative (NEGATIVE) Influenza Virus Type B (PCR) Negative (NEGATIVE) White Blood Count 17.3 k/uL (4.5-11.0) Red Blood Count 4.01 M/uL (4.17-5.56) Hemoglobin 11.9 g/dL (12.0-16.0) Hematocrit 35.5 % (34.0-47.0) Mean Corpuscular Volume 88.6 fL (80.0-96.0) Mean Corpuscular Hemoglobin 29.8 pg (26.0-33.0) Mean Corpuscular Hemoglobin Concent 33.7 g/dL (32.0-36.0) Red Cell Distribution Width 13.2 % (11.5-14.5) Platelet Count 271 K/uL (150-450) Mean Platelet Volume 7.6 fL (7.2-11.1) Neutrophils (%) (Auto) % (39.4-72.5) Lymphocytes (%) (Auto) % (17.6-49.6) Monocytes (%) (Auto) % (4.1-12.4) Eosinophils (%) (Auto) % (0.4-6.7) Basophils (%) (Auto) % (0.3-1.4) Nucleated RBC Relative Count (auto) /100WBC Neutrophils # (Auto) K/uL (2.0-7.4) Lymphocytes # (Auto) K/uL (1.3-3.6) Monocytes # (Auto) K/uL (0.3-1.0) Eosinophils # (Auto) K/uL (0.0-0.5) Basophils # (Auto) K/uL (0.0-0.1) Nucleated RBC Absolute Count (auto) K/uL Neutrophils % (Manual) 73 % (39.4-72.5) Band Neutrophils % 3 % Lymphocytes % (Manual) 17 % (17.6-49.6) Monocytes % (Manual) 5 % (4.1-12.4) Eosinophils % (Manual) 0 % (0.4-6.7) Basophils % (Manual) 0 % (0.3-1.4) Metamyelocytes % 1 % Myelocytes % 1 % Peripheral Blood Smear Yes Y/N Glomerular Filtration Rate Calc > 60.0 Lactate 2.2 mmol/L (0.7-2.1) Calcium Level 9.3 mg/dl (8.4-10.2) Total Bilirubin 0.5 mg/dl (0.2-1.3) Aspartate Amino Transf (AST/SGOT) 25 U/L (0-35) Alanine Aminotransferase (ALT/SGPT) 29 U/L (0-56) Alkaline Phosphatase 55 U/L (0-126) Troponin I < 0.012 ng/ml B-Type Natriuretic Peptide 74 pg/ml (0-100) Total Protein 6.9 g/dl (6.3-8.2) Albumin 4.1 g/dl (3.5-5.0) Urine Color Yellow Urine Clarity Clear Urine pH 6.0 pH (4.8-9.5) Urine Specific [place] 1.013 Urine Protein Negative mg/dL (NEGATIVE) Urine Glucose (UA) Negative mg/dL (NEGATIVE) Urine Ketones Negative mg/dL (NEGATIVE) Urine Blood Negative (NEGATIVE) Urine Nitrite Negative (NEGATIVE) Urine Bilirubin Negative (NEGATIVE) Urine Urobilinogen Negative mg/dL (0.2-1.9) Urine Leukocyte Esterase Trace (NEGATIVE) Urine RBC <1 /HPF (0-2/HPF) Urine WBC <1 /HPF (0-5/HPF) Urine Squamous Epithelial Cells None /LPF (</=FEW) Urine Bacteria Negative /HPF (NONE-FEW) Urine Mucus None /HPF (NONE-FEW) Urinalysis Test 05/15/18 04:37 Urine Color Yellow Urine Clarity Clear Urine pH 6.0 pH (4.8-9.5) Urine Specific [place] 1.013 Urine Protein Negative mg/dL (NEGATIVE) Urine Glucose (UA) Negative mg/dL (NEGATIVE) Urine Ketones Negative mg/dL (NEGATIVE) Urine Blood Negative (NEGATIVE) Urine Nitrite Negative (NEGATIVE) Urine Bilirubin Negative (NEGATIVE) Urine Urobilinogen Negative mg/dL (0.2-1.9) Urine Leukocyte Esterase Trace (NEGATIVE) Urine RBC <1 /HPF (0-2/HPF) Urine WBC <1 /HPF (0-5/HPF) Urine Squamous Epithelial Cells None /LPF (</=FEW) Urine Bacteria Negative /HPF (NONE-FEW) Urine Mucus None /HPF (NONE-FEW) EKG/Imaging EKG Interpretation 12 lead EK Rhythm: normal sinus rhythm Byron: normal QRS: normal ST segments: normal, comparison to previous EKG dated 11/25/17, no significant morphologic change. There is diffuse T-wave flattening in the precordial leads Imaging Chest x-ray performed on 05/08/18 was reviewed Results: CT scan of the CTA pulmonary angiogram was obtained. The results of the study are COMPARISONS: CT chest dated January 04, 2018 ADDITIONAL PERTINENT HISTORY: Dyspnea and congestion for one month. TECHNIQUE: Multiple axial images are obtained from the lung apices through the upper abdomen during the IV administration of contrast material. 2-D and 3-D reformatted images were obtained off the axial source data. One of the following dose optimization techniques was utilized in the performance of this exam: Automated exposure control; adjustment of the mA and/or kV according to the patient's size; or use of an iterative reconstruction technique. Specific details can be referenced in the facility's radiology CT exam operational policy. CONTRAST: 75mL of Isovue-370 FINDINGS: Lung parenchyma: Patchy areas of infiltrate involving the lung apices bilaterally as well as the superior segments of both lower lobes as well as the anterior segment of the left upper lobe and the lateral aspects of the left lower lobe. Findings are concerning for multifocal pneumonia. Pleural spaces: Negative. Heart, mediastinum and bonnie: Negative. Cardiopulmonary vasculature: Pulmonary arterial structures are well opacified with contrast material and demonstrate no evidence of pulmonary emboli. Mild calcified atherosclerotic plaque involving the thoracic aorta in the thoracic aortic arch. Central airways: Negative Thyroid, supra- clavicular, axillary regions: Negative. Surrounding soft tissues: Negative. Upper abdominal structures: Negative. Osseous structures: Minimal spondylitic change involving the thoracic spine no acute appearing bony abnormalities. IMPRESSION: 1. Findings concerning for multifocal areas of infiltrate concerning for underlying infectious process involving both hemithoraces. 2. No evidence of underlying pulmonary emboli. The study was read by the radiologist. I viewed the images myself on the PACS system. ED Course/Re-evaluation Clinical Indication for ER IV: IV Access ED Course Patient was admitted to an examination room. H&P was done. The dental di agnoses was considered. Patient with obvious air hunger or shortness of breath on arrival. She is on 3 L with saturations in the low 90s. Normally she is on 2 L, baseline mostly at night until recently. Patient was seen one week ago and had a negative chest x-ray. She was given a brief taper of prednisone. She comes in tonight with increasing shortness of breath and weakness. She is on 3 L [id number]. She states it's been helping. She is on DuoNeb's as well as home. With up. Continue. Repetitive cough that she says she's had for 4 weeks. That progressively worse over the last few days. Her shortness of breath is much worse. Blood cultures are drawn. She has a low-grade fever 99 2. Her lactate is borderline. Her white count is 17,000, but it could be secondary to steroids. A CTA pulmonary angiogram is ordered to evaluate her lungs and her previous CAT scan from December showed mediastinal adenopathy. CT scan shows no pulmonary embolisms, but patchy bilateral infiltrates, worrisome for infectious process. 05/15/2018 5:59:53 am days was discussed with Dr. Esteban Hurt-Still accepts the patient for admission for pneumonia and asthma exacerbation. Decision to Disposition Date: May 15, 2018 Decision to Disposition Time: 04:08 Depart Departure Latest Vital Signs Vital Signs Date Time Temp Pulse Resp B/P (MAP) Pulse Ox O2 Delivery O2 Flow Rate FiO2 05/15/18 05:30 162/84 (110) 05/15/18 05:24 89 39 94 05/15/18 03:34 Nasal Cannula 3.0 05/15/18 03:02 99.2 Impression: Primary Impression: Pneumonia Additional Impressions: Hypoxia Hyponatremia Asthma exacerbation Condition: Improved Disposition: Admitted from ER Referrals: RICHARD CHERY MD (PCP) Problem Qualifiers Primary Impression: Pneumonia Pneumonia type: due to unspecified organism Laterality: bilateral Lung location: unspecified part of lung Qualified Codes: J18.9 - Pneumonia, unspecified organism Additional Impressions: Asthma exacerbation Asthma severity: unspecified severity Asthma persistence: unspecified Qualified Codes: J45.901 - Unspecified asthma with (acute) exacerbation DAVID BYERS DO May 15, 2018 03:16
[2018-05-15] MEDS ORDERED: methylPREDNIS SUCC 125 MG/2ML IVP ONE (03:20)
[2018-05-15] MEDS ORDERED: ALBUTEROL/IPRATROPIUM 3 ML NEB NEB ONE (03:20)
[2018-05-15 03:40] LABS: PLATELET COUNT, AUTOMATED 271 K/uL (150-450)
--- NOTE | 2018-05-15 03:48 | EKG ---
[place] [facility] [place]IENT NAME: MILVIA LÓPEZ : [id number] MR: [id number] V: [id number] EXAM DATE: ORDERING PHYSICIAN: DAVID BYERS TECHNOLOGIST: MIRYAM Zacarias Reason : Blood Pressure : / mmHG Vent. Rate : 100 BPM Atrial Rate : 100 BPM P-R Int : 144 ms QRS Dur : 082 ms QT Int : 294 ms P-R-T Axes : 065 047 052 degrees QTc Int : 379 ms Normal sinus rhythm Normal ECG When compared with ECG of 14-NOV-2017 12:41, premature supraventricular complexes are no longer present Confirmed by Esteban Gore ([id number]) on 05/15/2018 7:42:08 AM Referred By: Confirmed By:Esteban Hernandez
[2018-05-15] MEDS ORDERED: NS(*) 0.9% 50 ML BAG 50 ML ONE (04:35)
[2018-05-15] MEDS ORDERED: IOPAMIDOL 76% 75 ML INFUS BTL 75 ML ONE (04:35)
[2018-05-15] MEDS ORDERED: NS(*) 0.9% 1000 ML BAG 1,000 ML IV ONE (04:40)
--- NOTE | 2018-05-15 05:46 | RADIOLOGY IMAGING REPORT ---
[place] [facility] [place] Svetlana Hall : 1935 MR: [id number] V: [id number] EXAM DATE: ORDERING PHYSICIAN: DAVID BYERS TECHNOLOGIST: Location: [facility] - [place] Patient: Svetlana Hall : 1935 Visit/Account:[id number] Date of Sevice: 05/15/2018 CTA CHEST WW/O CNTR (PULM ANG) COMPARISONS: CT chest dated January 04, 2018 ADDITIONAL PERTINENT HISTORY: Dyspnea and congestion for one month. TECHNIQUE: Multiple axial images are obtained from the lung apices through the upper abdomen during t he IV administration of contrast material. 2-D and 3-D reformatted images were obtained off the axial source data. One of the following dose optimization techniques was utilized in the performance of t his exam: Automated exposure control; adjustment of the mA and/or kV according to the patient's size; or use of an iterative reconstruction technique. Specific details can be referenced in the [facility]'s radiology CT exam operational policy. CONTRAST: 75mL of Isovue-370 FINDINGS: Lung parenchyma: Patchy areas of infiltrate involving the lung apices bilaterally as well as the supe rior segments of both lower lobes as well as the anterior segment of the left upper lobe and the late ral aspects of the left lower lobe. Findings are concerning for multifocal pneumonia. Pleural spaces: Negative. Heart, mediastinum and bonnie: Negative. Cardiopulmonary vasculature: Pulmonary arterial structures are well opacified with contrast material and demonstrate no evidence of pulmonary emboli. Mild calcified atherosclerotic plaque involving the thoracic aorta in the thoracic aortic arch. Central airways: Negative Thyroid, supra- clavicular, axillary regions: Negative. Surrounding soft tissues: Negative. Upper abdominal structures: Negative. Osseous structures: Minimal spondylitic change involving the thoracic spine no acute appearing bony a bnormalities. IMPRESSION: 1. Findings concerning for multifocal areas of infiltrate concerning for underlying infectious proces s involving both hemithoraces. 2. No evidence of underlying pulmonary emboli. Report Dictated By: Bharat Saucedo MD at 05/15/2018 5:39 AM Report E-Signed By: Bharat Saucedo MD at 05/15/2018 5:43 AM WSN:[id number]
[2018-05-15] MEDS ORDERED: NS(*) 0.9% 1000 ML BAG 1,000 ML IV PRN ×3 (06:12→15:25)
[2018-05-15] MEDS ORDERED: INFLUENZA VIRUS VAC 0.5ML SYR IM ONLY ONE (06:15)
[2018-05-15] MEDS ORDERED: ACETAMINOPHEN 325 MG TAB PO PRN (06:15)
[2018-05-15] MEDS ORDERED: ONDANSETRON 4 MG/2 ML VIAL IVP PRN (06:15)
[2018-05-15] MEDS ORDERED: FLUSH 10 ML SYR IVP PRN (06:15)
[2018-05-15] MEDS ORDERED: ALBUTEROL 2.5 MG/3 ML NEB NEB PRN (06:15)
--- NOTE | 2018-05-15 06:30 | History & Physical ---
History of Present Illness Chief Complaint SOB History of Present Illness 82F presented to ER with one month Hx of SOB, this worsened after completing steroid on Tuesday and she sought medical evaluation. Has been working with PCP and has had short prescription of steroid one week ago. CXR at that time was negative. Reports she has had to increase O2 to 3L continuous, appears baseline until recently was 2L continuous with 2.5L QHS. CTA was negative fro PE but did show scattered patchy infiltrates in b/l upper lobes concerning for PNA. History Problems: (1) Asthma Status: Chronic (2) Hyponatremia Status: Chronic (3) Hypertension Status: Chronic Home Meds Active Scripts Amlodipine Besylate (AMLODIPINE BESYLATE) 5 Mg Tablet, 1 TAB PO QDAY, #30 TAB 5 Refills Prov:RICHARD LYLES MD 04/19/18 Sodium Chloride (SODIUM CHLORIDE) 1 Gm Tab, 0.5 GM PO BID, #30 TAB 6 Refills Prov:RICHARD LYLES MD 12/29/17 Clopidogrel Bisulfate (CLOPIDOGREL) 75 Mg Tablet, 1 TAB PO QDAY, #90 TAB 3 Refills Prov:RICHARD LYLES MD 12/19/17 Albuterol Sulfate 90 Mcg/Act (PROAIR HFA 90 MCG/ACT) 8.5 Gm Hfa.aer.ad, 2 PUFF IH QID, #3 INHALER 3 Refills Prov:RICHARD LYLES MD 12/19/17 Fluticasone/Salmeterol (ADVAIR 250-50 DISKUS) 1 Each Disk.w.dev, 1 EACH INH BIDR, #1 DISK 3 Refills Prov:RICHARD LYLES MD 11/16/17 Magnesium Oxide (MAGNESIUM OXIDE) 400 Mg Tablet, 400 MG PO QDAY, #90 TAB 1 Refill Prov:RICHARD LYLES MD 11/14/17 Furosemide (FUROSEMIDE) 20 Mg Tablet, 1 TAB PO QDAY, #30 TAB 3 Refills Prov:RICHARD LYLES MD 09/23/17 Losartan Potassium (LOSARTAN POTASSIUM) 100 Mg Tablet, 100 MG PO QDAY, #90 TAB 3 Refills Prov:RICHARD LYLES MD 09/23/17 Ipratropium/Albuterol Sulfate (IPRAT-ALBUT 0.5-3(2.5) MG/3 ML) 3 Ml Ampul.neb, 3 ML IH QID PRN for SHORTNESS OF BREATH, #100 ML 6 Refills Prov:RICHARD LYLES MD 09/23/17 Nebulizer (Aeroneb Go Nebuliser) 1 Each Each, UNIT INH for asthma, #1 Prov:RICHARD LYLES MD 09/23/17 Metoprolol Succinate (METOPROLOL SUCCINATE) 100 Mg Tab.er.24h, 1 TAB PO QDAY, #90 TAB 2 Refills Prov:RICHARD LYLES MD 09/23/17 Reported Medications Omeprazole (OMEPRAZOLE) 20 Mg Capsule.dr, 1 CAP PO QDAY, CAP 09/29/17 Oxygen (Oxygen) 2 L Inha, 2.5 L INH HS 10/03/12 Discontinued Scripts Prednisone (PREDNISONE) 20 Mg Tablet, 1 TAB PO BID for 5 Days, #10 TAB 0 Refills Prov:MINH GARCIA DNP, HOME THEATER EXPERIENCE EXPERT-BC 05/08/18 Allergies: Coded Allergies: montelukast (Verified Allergy, Mild, ITCHING AND RASH, 05/15/18) phenobarbital (Verified Allergy, Mild, RASH, 05/15/18) Patient History: Blood clots FATHER, Cervical cancer CHILD, , Age:59 Diabetes mellitus CHILD CHILD FH: breast cancer siblings x 8 ( sister ) FH: heart attack FATHER, MOTHER, siblings x 8 (Brother) No pertinent family history CHILD CHILD Hx Smoking: No Smoking Status: Never Smoker Exposure to Second Hand Smoke?: Yes Caffeine Intake: Coffee, Soda Caffeine/Cups Per Day: 1C/day Hx Alcohol Use: Yes Hx Substance Use Disorder: No Social Drug Use: Never Review of Systems All Systems Reviewed/Normal: Yes, Except as Noted Constitutional: No Fever Cardiovascular: No Chest Pain, No Palpitations Respiratory: Shortness of Breath, Cough Exam Vital Signs Vital Signs Date Time Temp Pulse Resp B/P (MAP) Pulse Ox O2 Delivery O2 Flow Rate FiO2 05/15/18 06:39 98.3 92 24 155/76 (102) 92 Nasal Cannula 3.0 General Appearance: Alert, Awake, No Acute Distress Neuro: No Gross deficits Eyes: PERRLA ENT: Normal Neck: No Masses Cardiovascular: Normal Rhythm & Peripheral Pulses GI: Abd Soft and Non-Tender Musculoskeletal: No Weakness/Pain Extremities: Soft and Non Tender, Warm, Pulses, Perfused; No Edema Integumentary: Skin Intact without Lesion / Mass Psych: Alert & Oriented X3 Medical Decision Making Data Points Result Diagram: 05/15/1831405/15/18314 Assessment and Plan Problems: (1) Acute on chronic respiratory failure with hypoxia Assessment & Plan: O2 needs increased, increased sputum production, troponin negative. CTA concerning for infectious process. Will begin CAP coverage with ceftriaxone and azithromycin, steroid for exacerbation of asthma, gentle IV fluids. Duoneb and albuterol PRN. (2) Pneumonia Status: Acute Assessment & Plan: Likely CAP, treatment as above. (3) Hyponatremia Status: Chronic Assessment & Plan: Na 126 and asymptomatic on admission. Gentle IV fluid with NS. (4) Asthma Status: Chronic Assessment & Plan: Chronic, baseline 2L NC continuous. Needing 3L on admission. (5) Hypertension Status: Chronic Venous Thromboembolism Antithrombotics Is Pt On Any Antithrombotics?: Yes Exam Sepsis Risk: Severe Sepsis Risk Problem Qualifiers (1) Pneumonia: Pneumonia type: due to unspecified organism Laterality: bilateral Lung location: unspecified part of lung Qualified Codes: J18.9 - Pneumonia, unspecified organism RAJINDER YOO DO May 15, 2018 06:30
[2018-05-15 06:39] VITALS: BP 155/76
[2018-05-15] MEDS: SALMETEROL/FLUTIC 250/50 1 INH INH SCH ×2 (08:15→16:40)
[2018-05-15] MEDS: cefTRIAXone 1 GM VIAL IVP SCH (09:34)
[2018-05-15] MEDS: methylPREDNIS SUCC 125 MG/2ML IVP SCH ×2 (09:34→21:26)
[2018-05-15] MEDS: AZITHROMYCIN(*) 500 MG 500 MG in NS(*) 0.9% 250 ML BAG 250 ML IVPB SCH (09:35)
[2018-05-15] MEDS: SODIUM CHLORIDE 1 GR TAB PO SCH ×2 (09:36→21:23)
[2018-05-15] MEDS: PANTOPRAZOLE SOD 40 MG TABEC PO SCH (09:36)
[2018-05-15] MEDS: ENOXAPARIN 40 MG/0.4ML SYR SC SCH (09:37)
[2018-05-15] MEDS: METOPROLOL SUCC XL 50 MG TABCR 50 MG TAB.ER.24H PO SCH (09:38)
[2018-05-15] MEDS: CLOPIDOGREL BISULFATE 75MG TAB PO SCH (09:38)
[2018-05-15] MEDS: MAGNESIUM OXIDE 400 MG TAB PO SCH (09:38)
[2018-05-15] MEDS: LOSARTAN POTASSIUM 50 MG TAB PO SCH (09:39)
[2018-05-15] MEDS: amLODIPine BESYL(*) 5 MG TAB PO SCH (09:39)
[2018-05-15 20:33] VITALS: BP 140/76
[2018-05-15 21:22] VITALS: BP 124/62
[2018-05-16 00:39] VITALS: BP 131/59
[2018-05-16] MEDS: SALMETEROL/FLUTIC 250/50 1 INH INH SCH ×2 (05:37→16:56)
[2018-05-16 05:40] LABS: PLATELET COUNT, AUTOMATED 251 K/uL (150-450)
[2018-05-16 07:03] VITALS: BP 137/78
[2018-05-16] MEDS: ALBUTEROL/IPRATROPIUM 3 ML NEB NEB PRN ×2 (08:09→16:55)
[2018-05-16] MEDS: cefTRIAXone 1 GM VIAL IVP SCH (08:55)
[2018-05-16] MEDS: METOPROLOL SUCC XL 50 MG TABCR 50 MG TAB.ER.24H PO SCH (08:56)
[2018-05-16] MEDS: amLODIPine BESYL(*) 5 MG TAB PO SCH (08:56)
[2018-05-16] MEDS: CLOPIDOGREL BISULFATE 75MG TAB PO SCH (08:56)
[2018-05-16] MEDS: PANTOPRAZOLE SOD 40 MG TABEC PO SCH (08:56)
[2018-05-16] MEDS: ENOXAPARIN 40 MG/0.4ML SYR SC SCH (08:56)
[2018-05-16] MEDS: methylPREDNIS SUCC 125 MG/2ML IVP SCH ×2 (08:56→21:32)
[2018-05-16] MEDS: SODIUM CHLORIDE 1 GR TAB PO SCH ×2 (08:56→21:30)
[2018-05-16] MEDS: MAGNESIUM OXIDE 400 MG TAB PO SCH (08:57)
[2018-05-16] MEDS: LOSARTAN POTASSIUM 50 MG TAB PO SCH ×2 (08:57→09:00)
[2018-05-16] MEDS: AZITHROMYCIN(*) 500 MG 500 MG in NS(*) 0.9% 250 ML BAG 250 ML IVPB SCH (08:57)
--- NOTE | 2018-05-16 12:13 | Hospitalist Progress Note ---
Subjective Progress Notes Subjective She reports improvement in her WOB. Physical Exam Vital Signs Date Time Temp Pulse Resp B/P (MAP) Pulse Ox O2 Delivery O2 Flow Rate FiO2 05/16/18 09:09 94 Nasal Cannula 1.0 05/16/18 08:12 18 05/16/18 08:07 73 05/16/18 07:03 98.0 137/78 (97) Intake and Output 05/16/18 07:00 Intake Total 200 ml Balance 200 ml Intake Oral 200 ml # Voids 2 General Appearance: Alert, Awake, Other (Mild wob) Cardiovascular: Regular Rate and Rhythm Respiratory: Other (Bibasilar insp/exp crackles) Result Diagram: 05/16/1851005/16/18510 Assessment and Plan Problems: (1) Acute on chronic respiratory failure with hypoxia Assessment & Plan: She presented with a month of SOB that has acutely worsened over the last couple of days. O2 needs increased, increased sputum production, troponin negative. CTA concerning for infectious process. On CAP coverage with ceftriaxone and azithromycin, steroid for exacerbation of asthma. Improving. Saline lock and continue current therapy. (2) Pneumonia Status: Acute Assessment & Plan: Likely CAP, treatment as above. (3) Hyponatremia Status: Chronic Assessment & Plan: Na 126 and asymptomatic on admission. Likely related to pneumonia. She does have a h/o episodic hyponatremia. Sodium tablets started. Follow BMP closely. (4) Asthma Status: Chronic Assessment & Plan: Chronic, baseline 2L NC continuous. Needing 3L on admission. (5) Hypertension Status: Chronic Exam Sepsis Risk: Sepsis Risk Problem Qualifiers (1) Pneumonia: Pneumonia type: due to unspecified organism Laterality: bilateral Lung location: unspecified part of lung Qualified Codes: J18.9 - Pneumonia, unspecified organism KAYLA RIZZO MD May 16, 2018 12:13
[2018-05-16 14:16] VITALS: BP 135/81
[2018-05-16] MEDS ORDERED: DOCUSATE SOD/SENNA 1 EACH TAB PO ONE (19:20)
[2018-05-16 19:28] VITALS: BP 124/69
[2018-05-17 04:19] VITALS: BP 144/84
[2018-05-17] MEDS: SALMETEROL/FLUTIC 250/50 1 INH INH SCH ×2 (05:31→17:06)
[2018-05-17 06:31] LABS: PLATELET COUNT, AUTOMATED 314 K/uL (150-450)
[2018-05-17 07:12] VITALS: BP 147/66
[2018-05-17] MEDS: PANTOPRAZOLE SOD 40 MG TABEC PO SCH (08:28)
[2018-05-17] MEDS: SODIUM CHLORIDE 1 GR TAB PO SCH ×2 (08:29→21:06)
[2018-05-17] MEDS: LOSARTAN POTASSIUM 50 MG TAB PO SCH (08:30)
[2018-05-17] MEDS: METOPROLOL SUCC XL 50 MG TABCR 50 MG TAB.ER.24H PO SCH (08:30)
[2018-05-17] MEDS: MAGNESIUM OXIDE 400 MG TAB PO SCH (08:31)
[2018-05-17] MEDS: CLOPIDOGREL BISULFATE 75MG TAB PO SCH (08:31)
[2018-05-17] MEDS: amLODIPine BESYL(*) 5 MG TAB PO SCH (08:32)
[2018-05-17] MEDS: cefTRIAXone 1 GM VIAL IVP SCH (08:35)
[2018-05-17] MEDS: methylPREDNIS SUCC 125 MG/2ML IVP SCH (08:36)
[2018-05-17] MEDS: AZITHROMYCIN(*) 500 MG 500 MG in NS(*) 0.9% 250 ML BAG 250 ML IVPB SCH (08:49)
--- NOTE | 2018-05-17 11:12 | Hospitalist Progress Note ---
Subjective Progress Notes Subjective This patient was admitted for pneumonia. She had no acute events overnight. Patient Complains of: Cardiovascular: No: Chest Pain Respiratory: No: Shortness of Breath Physical Exam Vital Signs Date Time Temp Pulse Resp B/P (MAP) Pulse Ox O2 Delivery O2 Flow Rate FiO2 05/17/18 08:30 95 Nasal Cannula 1.5 05/17/18 07:12 98.3 71 24 147/66 (93) Intake and Output 05/17/18 07:00 Intake Total 620 ml Balance 620 ml Intake Oral 620 ml # Voids 2 Cardiovascular: Regular Rate and Rhythm Respiratory: Clear to Auscultation Result Diagram: 05/17/18 0535 05/17/18 0535 Item Value Date Time Gram Stain - Final Resulted 05/15/18 1200 Sputum Expectorated Blood Culture - Preliminary Resulted 05/15/18 0400 Blood Peripheral Draw NO GROWTH AFTER 2 DAYS, REINCUBATED Blood Culture - Preliminary Resulted 05/15/18 0315 Blood Peripheral Draw NO GROWTH AFTER 2 DAYS, REINCUBATED Assessment and Plan Problems: (1) Acute on chronic respiratory failure with hypoxia Assessment & Plan: Her CT scan did reveal multifocal infiltrates. She also had an elevated WBC. She was placed on empiric treatment with ceftriaxone and azithromycin. Her cultures have been negative. We converted her to oral azithromycin and cefdinir today. (2) Pneumonia Status: Acute Assessment & Plan: Likely CAP, treatment as above. (3) Hyponatremia Status: Chronic Assessment & Plan: Her sodium did improve some with the addition of sodium tab lets. Her levels are chronically low. (4) Asthma Status: Chronic Assessment & Plan: She was placed on IV Solu-Medrol. We switched her to oral prednisone today. (5) Hypertension Status: Chronic Assessment & Plan: She is on chronic treatment with amlodipine, losartan, and metoprolol. Exam Sepsis Risk: No Definite Risk Problem Qualifiers (1) Pneumonia: Pneumonia type: due to unspecified organism Laterality: bilateral Lung location: unspecified part of lung Qualified Codes: J18.9 - Pneumonia, unspecified organism WENCESLAO CHAVIS DO May 17, 2018 11:12
[2018-05-17 11:22] VITALS: BP 155/82
[2018-05-17 14:55] VITALS: BP 151/74
--- NOTE | 2018-05-17 16:18 | Antimicrobial Stewardship ---
Antimicrobial Stewardship Empiricly appropriate: Yes (Azithromycin and Rocephin IV for pneumonia) Approriate Cultures done: Yes (No growth to date) Reviewed for Drug Interaction: Yes Monitored for Toxicities: Yes Clinically stable/improving: Yes (Improving but still with elevated WBC) IV to PO Opportunity: Yes (Changed today to Azithromycin and cefdinir po) Determine cumulative duration: 7-10 days RAMO QURESHI May 17, 2018 16:18
[2018-05-17 20:42] VITALS: BP 139/61
[2018-05-17] MEDS: CEFDINIR 300 MG CAP PO SCH (21:06)
[2018-05-18 03:35] VITALS: BP 147/63
[2018-05-18] MEDS: SALMETEROL/FLUTIC 250/50 1 INH INH SCH (05:37)
[2018-05-18 07:40] VITALS: BP 165/80
[2018-05-18] MEDS ORDERED: AZITHROMYCIN 250 MG TAB PO SCH (09:00)
[2018-05-18] MEDS ORDERED: predniSONE 20 MG TAB PO SCH (09:00)
[2018-05-18] MEDS: CLOPIDOGREL BISULFATE 75MG TAB PO SCH (09:02)
[2018-05-18] MEDS: PANTOPRAZOLE SOD 40 MG TABEC PO SCH (09:02)
[2018-05-18] MEDS: CEFDINIR 300 MG CAP PO SCH (09:02)
[2018-05-18] MEDS: MAGNESIUM OXIDE 400 MG TAB PO SCH (09:02)
[2018-05-18] MEDS: amLODIPine BESYL(*) 5 MG TAB PO SCH (09:02)
[2018-05-18] MEDS: LOSARTAN POTASSIUM 50 MG TAB PO SCH (09:02)
[2018-05-18] MEDS: METOPROLOL SUCC XL 50 MG TABCR 50 MG TAB.ER.24H PO SCH (09:03)
[2018-05-18] MEDS: SODIUM CHLORIDE 1 GR TAB PO SCH (09:04)
[2018-05-18] MEDS ORDERED: CEF300 PO (10:46)
[2018-05-18] MEDS ORDERED: PRED-1 PO (10:46)
[2018-05-18] MEDS ORDERED: AZIT-18 PO (10:46)
--- NOTE | 2018-05-18 10:54 | Hospitalist Depart ---
Discharge Summary Reason for Hosp/Final Diag: (1) Acute on chronic respiratory failure with hypoxia Hospital Course & Plan: Her CT scan did reveal multifocal infiltrates. She also had an elevated WBC. She was placed on empiric treatment with ceftriaxone and azithromycin. Her cultures have been negative. We converted her to oral azithromycin and cefdinir 05/17. She will follow up with Dr. Chery next week. (2) Pneumonia Status: Acute Hospital Course & Plan: Likely CAP, treatment as above. (3) Hyponatremia Status: Chronic Hospital Course & Plan: Her sodium did improve some with the addition of sodium tablets. She will continue Sodium tablets at home. Her levels are chronically low. (4) Asthma Status: Chronic Hospital Course & Plan: She was placed on IV Solu-Medrol. We switched her to oral prednisone today. (5) Hypertension Status: Chronic Hospital Course & Plan: She is on chronic treatment with amlodipine, losartan, and metoprolol. Departure Latest Vital Signs Vital Signs 05/18/18 05/18/18 07:40 07:48 Temp 97.8 Pulse 66 Resp 20 B/P (MAP) 165/80 (108) Pulse Ox 96 O2 Delivery Nasal Cannula O2 Flow Rate 1.0 Weight (Pounds): 126 Weight (Ounces): 5.0 Result Diagram: 05/17/18 0535 05/17/18 0535 Condition: Improved Discharge: Home, Self Care Discharge Instructions Home Meds Active Scripts Prednisone 10 Mg Tab (PREDNISONE 10 MG TAB) 10 Mg Tablet, 10 MG PO QDAY, #9 TAB Take 2 tablets for 3 days, then take 1 tablet for 3 days, then stop Prov:FABIO MIRELES [facility] 05/18/18 Cefdinir 300 Mg Cap (OMNICEF 300 MG CAP (OR EQUIV)) 300 Mg Cap, 300 MG PO BID, #6 CAP Prov:FABIO MIRELES [facility] 05/18/18 Azithromycin 250 Mg Tab (AZITHROMYCIN 250 MG TAB) 250 Mg Tablet, 250 MG PO QDAY, #1 TAB Prov:FABIO MIRELES [facility] 05/18/18 Amlodipine Besylate (AMLODIPINE BESYLATE) 5 Mg Tablet, 1 TAB PO QDAY, #30 TAB 5 Refills Prov:RICHARD CHERY MD 04/19/18 Sodium Chloride (SODIUM CHLORIDE) 1 Gm Tab, 0.5 GM PO BID, #30 TAB 6 Refills Prov:RICHARD CHERY MD 12/29/17 Clopidogrel Bisulfate (CLOPIDOGREL) 75 Mg Tablet, 1 TAB PO QDAY, #90 TAB 3 Refills Prov:RICHARD CHERY MD 12/19/17 Albuterol Sulfate 90 Mcg/Act (PROAIR HFA 90 MCG/ACT) 8.5 Gm Hfa.aer.ad, 2 PUFF IH QID, #3 INHALER 3 Refills Prov:RICHARD CHERY MD 12/19/17 Magnesium Oxide (MAGNESIUM OXIDE) 400 Mg Tablet, 400 MG PO QDAY, #90 TAB 1 Refill Prov:RICHARD CHERY MD 11/14/17 Losartan Potassium (LOSARTAN POTASSIUM) 100 Mg Tablet, 100 MG PO QDAY, #90 TAB 3 Refills Prov:RICHARD CHERY MD 09/23/17 Ipratropium/Albuterol Sulfate (IPRAT-ALBUT 0.5-3(2.5) MG/3 ML) 3 Ml Ampul.neb, 3 ML IH QID PRN for SHORTNESS OF BREATH, #100 ML 6 Refills Prov:RICHARD CHERY MD 09/23/17 Nebulizer (Aeroneb Go Nebuliser) 1 Each Each, UNIT INH for asthma, #1 Prov:RICHARD CHERY MD 09/23/17 Metoprolol Succinate (METOPROLOL SUCCINATE) 100 Mg Tab.er.24h, 1 TAB PO QDAY, #90 TAB 2 Refills Prov:RICHARD CHERY MD 09/23/17 Reported Medications Omeprazole (OMEPRAZOLE) 20 Mg Capsule.dr, 1 CAP PO QDAY, CAP 09/29/17 Oxygen (Oxygen) 2 L Inha, 2.5 L INH HS 10/03/12 Discontinued Scripts Prednisone (PREDNISONE) 20 Mg Tablet, 1 TAB PO BID for 5 Days, #10 TAB 0 Refills Prov:MINH GARCIA DNP, [employer] 05/08/18 Fluticasone/Salmeterol (ADVAIR 250-50 DISKUS) 1 Each Disk.w.dev, 1 EACH INH BIDR, #1 DISK 3 Refills Prov:RICHARD CHERY MD 11/16/17 Furosemide (FUROSEMIDE) 20 Mg Tablet, 1 TAB PO QDAY, #30 TAB 3 Refills Prov:RICHARD CHERY MD 09/23/17 Diet: Regular Activity: As Tolerated Special Instructions: Follow up with Dr. Chery next week. Copies to: RICHARD CHERY MD ; Venous Thromboembolism Antithrombotics Is Pt On Any Antithrombotics?: Yes Problem Qualifiers (1) Pneumonia: Pneumonia type: due to unspecified organism Laterality: bilateral Lung location: unspecified part of lung Qualified Codes: J18.9 - Pneumonia, uns pecified organism FABIO MIRELES [employer] May 18, 2018 10:54
== END 2018-05-18 13:58 | disposition home or self-care (01) | DRG 193 ==
LOC: ER 03:32 → MED 06:03
PROVIDERS: ADMIT Internal Medicine; ATTEND Internal Medicine
DX: J18.9 Pneumonia, unspecified organism (principal); J96.21 Acute and chronic respiratory failure with hypoxia; E87.1 Hypo-osmolality and hyponatremia; J45.901 Unspecified asthma with (acute) exacerbation; I10 Essential (primary) hypertension; K21.9 Gastro-esophageal reflux disease without esophagitis; K44.9 Diaphragmatic hernia without obstruction or gangrene; Z99.81 Dependence on supplemental oxygen; Z88.8 Allergy status to other drugs, medicaments and biological substances; Z85.3 Personal history of malignant neoplasm of breast; Z90.710 Acquired absence of both cervix and uterus
CPT/HCPCS: 36415; 71275; 81001; 82040; 82247; 82310; 82374; 82435; 82565; 82947; 83605; 83880; 84075; 84132; 84155; 84295; 84450; 84460; 84484; 84520; 85025; 87040; 87070; 87205; 87502; 93005; 94640; 94667; 94668; 96361; 96374; 97161; 97165; 99284; J0456; J0696; J1650; J2930; J7030; J7050; J7512; Q9967

== ENCOUNTER → 2018-05-15 | Outpatient (CLI) | payer MEDICARE ==
[2017-11-15 12:41] VITALS: BMI 24.7
[~2018-05-15] MED LIST changes: +AZIT-18 PO; +CEF300 PO; +PRED-1 PO
== END ==
LOC: AMB 02:23
PROVIDERS: ATTEND Nurse Practitioner
DX: R06.82 Tachypnea, not elsewhere classified (principal); R06.2 Wheezing; R05 Cough; Z99.81 Dependence on supplemental oxygen
CPT/HCPCS: A0425; A0427

== ENCOUNTER 2018-05-19 17:41 | Emergency (ER) | payer MEDICARE ==
[2017-11-15 12:41] VITALS: Wt 57.3 kg
[~2018-05-19 17:41] MED LIST changes: +AZIT-18 PO; +CEF300 PO; +PRED-1 PO
--- NOTE | 2018-05-19 18:05 | ER Report ---
History and Physical Time Seen By MD: 18:03 Hx. of Stated Complaint: pt reports chest pain that ran across her chest ~1700 with sob, just hospitalized with pneumonia HPI/ROS CHIEF COMPLAINT: Chest pain HISTORY OF PRESENT ILLNESS: 82-year-old female presents via private auto to the ER complaining of pain at home. She was admitted approximately 5 days ago, discharged yesterday with presumed CAP and respiratory failure. She was treated with IV steroids, antibiotics and then changed to orals. She was doing well when she was discharged home yesterday. Tonight she was sitting at her kitchen table. She had 1 brief episode of chest pain lasting less than a minute. She subsequently had a 2nd episode of chest pain lasting 3 minutes. She notes some mild shortness of breath no diaphoresis, no nausea. She thought it might be anxiety. She presented to the ER for further evaluation. On the monitor and storage bin tender. She is noted to be in atrial fibrillation. Her previous EKG shows a normal sinus rhythm, rate of 100 bpm. She is on Plavix and aspirin. He is a distant history of a stroke. She currently has no chest pain. REVIEW OF SYSTEMS: Respiratory: No cough, no dyspnea. Cardiovascular: As above Gastrointestinal: No vomiting, no abdominal pain. Musculoskeletal: No back pain. Allergies: Coded Allergies: montelukast (Verified Allergy, Mild, ITCHING AND RASH, 05/19/18) phenobarbital (Verified Allergy, Mild, RASH, 05/19/18) Home Meds Active Scripts Prednisone 10 Mg Tab (PREDNISONE 10 MG TAB) 10 Mg Tablet, 10 MG PO QDAY, #9 TAB Take 2 tablets for 3 days, then take 1 tablet for 3 days, then stop Prov:FABIO MIRELES [facility] 05/18/18 Cefdinir 300 Mg Cap (OMNICEF 300 MG CAP (OR EQUIV)) 300 Mg Cap, 300 MG PO BID, #6 CAP Prov:FABIO MIRELES [facility] 05/18/18 Amlodipine Besylate (AMLODIPINE BESYLATE) 5 Mg Tablet, 1 TAB PO QDAY, #30 TAB 5 Refills Prov:RICHARD CHERY MD 04/19/18 Sodium Chloride (SODIUM CHLORIDE) 1 Gm Tab, 0.5 GM PO BID, #30 TAB 6 Refills Prov:RICHARD CHERY MD 12/29/17 Clopidogrel Bisulfate (CLOPIDOGREL) 75 Mg Tablet, 1 TAB PO QDAY, #90 TAB 3 Refil ls Prov:RICHARD CHERY MD 12/19/17 Albuterol Sulfate 90 Mcg/Act (PROAIR HFA 90 MCG/ACT) 8.5 Gm Hfa.aer.ad, 2 PUFF IH QID, #3 INHALER 3 Refills Prov:RICHARD CHERY MD 12/19/17 Magnesium Oxide (MAGNESIUM OXIDE) 400 Mg Tablet, 400 MG PO QDAY, #90 TAB 1 Refill Prov:RICHARD CHERY MD 11/14/17 Losartan Potassium (LOSARTAN POTASSIUM) 100 Mg Tablet, 100 MG PO QDAY, #90 TAB 3 Refills Prov:RICHARD CHERY MD 09/23/17 Ipratropium/Albuterol Sulfate (IPRAT-ALBUT 0.5-3(2.5) MG/3 ML) 3 Ml Ampul.neb, 3 ML IH QID PRN for SHORTNESS OF BREATH, #100 ML 6 Refills Prov:RICHARD CHERY MD 09/23/17 Nebulizer (Aeroneb Go Nebuliser) 1 Each Each, UNIT INH for asthma, #1 Prov:RICHARD CHERY MD 09/23/17 Metoprolol Succinate (METOPROLOL SUCCINATE) 100 Mg Tab.er.24h, 1 TAB PO QDAY, #90 TAB 2 Refills Prov:RICHARD CHERY MD 09/23/17 Reported Medications Omeprazole (OMEPRAZOLE) 20 Mg Capsule.dr, 1 CAP PO QDAY, CAP 09/29/17 Oxygen (Oxygen) 2 L Inha, 2.5 L INH HS 10/03/12 Discontinued Scripts Azithromycin 250 Mg Tab (AZITHROMYCIN 250 MG TAB) 250 Mg Tablet, 250 MG PO QDAY, #1 TAB Prov:FABIO MIRELES [employer] 05/18/18 Prednisone (PREDNISONE) 20 Mg Tablet, 1 TAB PO BID for 5 Days, #10 TAB 0 Refills Prov:MINH GARCIA DNP, [employer] 05/08/18 Fluticasone/Salmeterol (ADVAIR 250-50 DISKUS) 1 Each Disk.w.dev, 1 EACH INH BIDR, #1 DISK 3 Refills Prov:RICHARD CHERY MD 11/16/17 Furosemide (FUROSEMIDE) 20 Mg Tablet, 1 TAB PO QDAY, #30 TAB 3 Refills Prov:RICHARD CHERY MD 09/23/17 Past Medical/Surgical History Past Medical History Cardiovascular: Reports hx of: hypertension Respiratory: Reports hx of: asthma (Chronic Obstructive Asthma) COPD (with RAD) Gastrointestinal: Reports hx of: GERD hiatal hernia Integumentary: Reports hx of: other integumentary hx Endocrine: Reports hx of: other endocrine history (SIADH; Hyponatremia) Hematology/oncology: Reprots hx of: other cancer history (fibrocystic breast disease) Infectious disease: Reports hx of: other infectious disease (shingles 04/2009) Past Surgical History HEENT: Reports hx of: tonsillectomy Gastrointestinal: Reports hx of: other GI surgery (colonoscopy) Gynecologic: Reports hx of: hysterectomy tubal ligation Reviewed Nurses Notes: Yes Old Medical Records Reviewed: Yes Hx Smoking: No Smoking Status: Never Smoker Exposure to Second Hand Smoke?: Yes Hx Substance Use Disorder: No Hx Alcohol Use: Yes Constitutional Vital Sign - Last 24 Hours 05/19/18 05/19/18 05/19/18 05/19/18 17:42 17:42 17:48 17:56 Temp 98.0 Pulse 89 79 Resp 18 30 B/P (MAP) 191/114 191/114 (139) Pulse Ox 97 95 O2 Delivery Nasal Cannula O2 Flow Rate 2.0 05/19/18 05/19/18 05/19/18 05/19/18 18:00 18:11 18:16 18:30 Pulse 77 66 Resp 14 10 B/P (MAP) 192/106 (134) 176/89 (118) Pulse Ox 98 97 05/19/18 05/19/18 05/19/18 18:31 19:16 19:20 Pulse 77 85 Resp 26 16 B/P (MAP) 138/85 (102) Pulse Ox 92 95 O2 Delivery Room Air O2 Flow Rate 2.0 Physical Exam Vital signs stable, afebrile, pulse ox normal, monitor and storage bin tender shows atrial fibrillation with a rate of 82 bpm there are occasional pauses General Appearance: The patient is alert, has no immediate need for airway protection and no current signs of toxicity. Skin warm, dry, pink, no acute distress HEENT: Pupils equal and round no injection. Oropharynx without redness or exudate, mucous members are moist Respiratory: Chest is non tender, lungs are clear to auscultation. No wheezing or rails Cardiac: Irregular, regular rate and rhythm Gastrointestinal: Abdomen is soft and non tender, no masses, bowel sounds normal. Musculoskeletal: Neck: Neck is supple and non tender. Extremities have full range of motion and are non tender. No edema, no calf tenderness Skin: No rashes or lesions. DIFFERENTIAL DIAGNOSIS: After history and physical exam differential diagnosis was considered for chest pain including but not limited to myocardial ischemia, pericarditis pulmonary embolus, atrial fibrillation, cardiac dysrhythmia, chest wall pain, pleural inflammation and pulmonary infectious causes. Medical Decision Making Data Points Result Diagram: 05/19/18 1755 05/19/185 Laboratory Hematology Test 05/19/18 17:55 Red Blood Count 4.26 M/uL (4.17-5.56) Mean Corpuscular Volume 86.5 fL (80.0-96.0) Mean Corpuscular Hemoglobin 29.5 pg (26.0-33.0) Mean Corpuscular Hemoglobin Concent 34.1 g/dL (32.0-36.0) Red Cell Distribution Width 13.7 % (11.5-14.5) Mean Platelet Volume 7.2 fL (7.2-11.1) Neutrophils (%) (Auto) 79.9 % (39.4-72.5) Lymphocytes (%) (Auto) 10.5 % (17.6-49.6) Monocytes (%) (Auto) 9.0 % (4.1-12.4) Eosinophils (%) (Auto) 0.4 % (0.4-6.7) Basophils (%) (Auto) 0.2 % (0.3-1.4) Nucleated RBC Relative Count (auto) 0.0 /100WBC Neutrophils # (Auto) 11.1 K/uL (2.0-7.4) Lymphocytes # (Auto) 1.4 K/uL (1.3-3.6) Monocytes # (Auto) 1.2 K/uL (0.3-1.0) Eosinophils # (Auto) 0.0 K/uL (0.0-0.5) Basophils # (Auto) 0.0 K/uL (0.0-0.1) Nucleated RBC Absolute Count (auto) 0.00 K/uL Peripheral Blood Smear Yes Y/N Sodium Level 128 mmol/L (137-145) Potassium Level 4.2 mmol/L (3.5-5.0) Chloride Level 90 mmol/L (98-107) Carbon Dioxide Level 28 mmol/L (22-31) Blood Urea Nitrogen 20 mg/dl (7-18) Creatinine 0.70 mg/dl (0.52-1.04) Glomerular Filtration Rate Calc > 60.0 Random Glucose 117 mg/dl (75-110) Calcium Level 9.4 mg/dl (8.4-10.2) Total Bilirubin 0.4 mg/dl (0.2-1.3) Aspartate Amino Transf (AST/SGOT) 40 U/L (0-35) Alanine Aminotransferase (ALT/SGPT) 42 U/L (0-56) Alkaline Phosphatase 58 U/L (0-126) Troponin I < 0.012 ng/ml B-Type Natriuretic Peptide 134 pg/ml (0-100) Total Protein 7.0 g/dl (6.3-8.2) Albumin 4.0 g/dl (3.5-5.0) Chemistry Test 05/19/18 17:55 White Blood Count 13.8 k/uL (4.5-11.0) Red Blood Count 4.26 M/uL (4.17-5.56) Hemoglobin 12.6 g/dL (12.0-16.0) Hematocrit 36.9 % (34.0-47.0) Mean Corpuscular Volume 86.5 fL (80.0-96.0) Mean Corpuscular Hemoglobin 29.5 pg (26.0-33.0) Mean Corpuscular Hemoglobin Concent 34.1 g/dL (32.0-36.0) Red Cell Distribution Width 13.7 % (11.5-14.5) Platelet Count 375 K/uL (150-450) Mean Platelet Volume 7.2 fL (7.2-11.1) Neutrophils (%) (Auto) 79.9 % (39.4-72.5) Lymphocytes (%) (Auto) 10.5 % (17.6-49.6) Monocytes (%) (Auto) 9.0 % (4.1-12.4) Eosinophils (%) (Auto) 0.4 % (0.4-6.7) Basophils (%) (Auto) 0.2 % (0.3-1.4) Nucleated RBC Relative Count (auto) 0.0 /100WBC Neutrophils # (Auto) 11.1 K/uL (2.0-7.4) Lymphocytes # (Auto) 1.4 K/uL (1.3-3.6) Monocytes # (Auto) 1.2 K/uL (0.3-1.0) Eosinophils # (Auto) 0.0 K/uL (0.0-0.5) Basophils # (Auto) 0.0 K/uL (0.0-0.1) Nucleated RBC Absolute Count (auto) 0.00 K/uL Peripheral Blood Smear Yes Y/N Glomerular Filtration Rate Calc > 60.0 Calcium Level 9.4 mg/dl (8.4-10.2) Total Bilirubin 0.4 mg/dl (0.2-1.3) Aspartate Amino Transf (AST/SGOT) 40 U/L (0-35) Alanine Aminotransferase (ALT/SGPT) 42 U/L (0-56) Alkaline Phosphatase 58 U/L (0-126) Troponin I < 0.012 ng/ml B-Type Natriuretic Peptide 134 pg/ml (0-100) Total Protein 7.0 g/dl (6.3-8.2) Albumin 4.0 g/dl (3.5-5.0) EKG/Imaging EKG Interpretation 12 lead EK Rhythm: Atrial fibrillation with a rate of 82 bpm, there is a significant positives [place]: normal QRS: normal ST segments: normal, comparison to previous EKG dated 05/15/18. There is no significant overall morphologic change Imaging X-ray: Single view portable chest x-ray was obtained. I viewed the images myself on the PACS system. My interpretation of the images is: There is some haziness in the left base along the cardiac margin suggesting infiltrate versus atelectasis. The radiologist interpretation had no clinically significant variation from this interpretation. ED Course/Re-evaluation Clinical Indication for ER IV: IV Access ED Course Patient was admitted to an examination room. H&P was done. The differential diagnoses was considered. Patient has normal-appearing examination. Patient's initial EKG shows atrial fibrillation with good rate control in the 80s. There is an occasional pot. Overall morphology is unchanged suggesting no evidence of ischemia. Patient only had 2 brief episodes of chest pain lasting a few minutes at a time. She thought it was anxiety. Diagnostic evaluation shows normal troponin. The remainder of her laboratory studies are unremarkable. Her white blood cell count is still mildly elevated at 13,000. Patient will need consideration of starting prophylaxis for prevention of stroke if she continues to remain in atrial fibrillation. She needs to follow-up with primary care doctor Vik for repeat EKG, early next week. 05/19/2018 7:09:43 pm case was discussed with hospitalist, Dr. Esteban Gage. He is aware of the patient. Since he admitted her back on 05/15/18. We discussed her new onset atrial fibrillation. Her rate controlled well on metoprolol. We discussed the option of admission for observation of her rate overnight. Also consideration of addition for stroke prevention. We both agreed that the patient will likely need to have medication adjustment by her primary care doctor Vik. She may be an acute phase of atrial fibrillation while she is recovering from her pneumonia. She may not need any prophylaxis. We both agreed that urgent follow-up with her primary care for EKG, early next week would be appropriate. If she still atrial fibrillation. She'll need prop hylaxis to prevent stroke. She is currently on Plavix. Decision to Disposition Date: May 19, 2018 Decision to Disposition Time: 18:34 Depart Departure Latest Vital Signs Vital Signs Date Time Temp Pulse Resp B/P (MAP) Pulse Ox O2 Delivery O2 Flow Rate FiO2 05/19/18 19:20 2.0 05/19/18 19:16 85 16 138/85 (102) 95 Room Air 05/19/18 17:42 98.0 Impression: Primary Impression: New onset atrial fibrillation Additional Impressions: Chest pain History of recent pneumonia Asthma Condition: Improved Disposition: HOME OR SELF-CARE Referrals: RICHARD CHERY MD (PCP) Patient Instructions: A-fib (Atrial Fibrillation) (ED) Additional Instructions: Follow-up with Dr. Chery early next week for recheck of your heart rhythm and, if he remained in atrial fibrillation. You may need to have another blood thinner medicine added Xarelto or Eliquis to prevent stroke Return to the ER for any worsening, especially prolonged episodes of chest pain and shortness of breath lasting 20 or 30 minutes Make sure to wear your oxygen at the appropriate level. Problem Qualifiers Additional Impressions: Chest pain Chest pain type: unspecified Qualified Codes: R07.9 - Chest pain, unspecified Asthma Asthma severity: mild Asthma persistence: intermittent Asthma complication type: with acute exacerbation Qualified Codes: J45.21 - Mild intermittent asthma with (acute) exacerbation DAVID BYERS DO May 19, 2018 18:05
--- NOTE | 2018-05-19 18:13 | EKG ---
FACILITY: [facility] - [place] PATIENT NAME: MILVIA LÓPEZ : [id number] MR: [id number] V: [id number] EXAM DATE: ORDERING PHYSICIAN: DAVID BYERS TECHNOLOGIST: Test Reason : Chest pain Blood Pressure : / mmHG Vent. Rate : 082 BPM Atrial Rate : 085 BPM P-R Int : 000 ms QRS Dur : 086 ms QT Int : 340 ms P-R-T Axes : 000 005 038 degrees QTc Int : 397 ms Sinus rhythm with PJ's Abnormal ECG When compared with ECG of 15-MAY-2018 03:28, Premature junctional contractions are present with sinus arrhythmia Confirmed by Esteban Gore ([id number]) on 05/19/2018 9:19:20 PM Referred By: Confirmed By:Esteban Hernandez
[2018-05-19 18:18] LABS: PLATELET COUNT, AUTOMATED 375 K/uL (150-450)
--- NOTE | 2018-05-19 18:52 | RADIOLOGY IMAGING REPORT ---
FACILITY: [facility] - [place] PATIENT NAME: Svetlana Hall : 1935 MR: [id number] V: [id number] EXAM DATE: ORDERING PHYSICIAN: DAVID BYERS TECHNOLOGIST: Location: [facility] - [place] Patient: Svetlana Hall : 1935 Visit/Account:[id number] Date of Sevice: 05/19/2018 EXAMINATION: Portable chest radiograph single view at 1817 hours HISTORY: Chest pain, recent pulmonary CTA with patchy infiltrate. COMPARISON: Chest radiograph from 05/08/2018 and CTA chest from 05/15/2018. FINDINGS: A single portable AP view of the chest is obtained. Lines/tubes: None. Lungs/pleura: Mild bibasilar atelectasis. Small patchy nodular areas of consolidation on recent CTA are not visualized radiographically. No focal consolidation or pleural effusion. Heart: Negative. Mediastinum: Atherosclerotic calcifications of the aorta. Bony structures/body wall: Negative. IMPRESSION: Mild bibasilar atelectasis. Small patchy nodular areas of consolidation seen on recent CTA are not vi sualized, these may have cleared or may not be visible radiographically. Report Dictated By: Anna Burnett MD at 05/19/2018 6:46 PM Report E-Signed By: Anna Burnett MD at 05/19/2018 6:48 PM [id number]
[2018-05-19 19:16] VITALS: BP 138/85
== END 2018-05-19 19:24 | disposition home or self-care (01) ==
LOC: ER 18:04
DX: I48.91 Unspecified atrial fibrillation (principal); Z79.01 Long term (current) use of anticoagulants; J45.21 Mild intermittent asthma with (acute) exacerbation
CPT/HCPCS: 71045; 82040; 82247; 82310; 82374; 82435; 82565; 82947; 83880; 84075; 84132; 84155; 84295; 84450; 84460; 84484; 84520; 85025; 93005; 99284

== ENCOUNTER 2018-05-25 08:09 | Outpatient (RCR) | payer MEDICARE ==
[2017-11-15 12:41] VITALS: BMI 24.7
[~2018-05-25 08:09] MED LIST changes: -AMLO-111 PO; +AMLO-125 PO; -LOSA100T69 PO; +LOSA100T75 PO
--- NOTE | 2018-05-25 12:00 | Transitional Care Management ---
Assessment Visit Type: Telephone Visit Spoke with: Svetlana Cardiac: WNL Except Cardiac Comment: 05/25 denies recurrent chest pain since ER visit on 05/19 for a fib. denies racing heart or edema Respiratory: WNL Except Respiratory Comment: 05/25 reports is wearing O2 at 1L most of the time. took it off to go to mailbox for first time yesterday. little SOB or cough persist GI: Nutrition: WN GI Comment: 05/25 had increased appetite when taking prednisone. denies Diarrhea while on atb Constipation?: No Musculoskeletal, Exercise: WNL Except Musculoskeletal, Excercise Com: 05/25 still weak and tired but, gets up frequently and does a few things routinely Feeling of Well Being: WNL Except Feeling of Well Being Comment: 05/25 still tired. wants to be better when son comes at [place] Pain/Management: WN Pain/Management Comment: 05/25 denies Scheduled Follow-Up with Provi: Yes (05/25 has appt 05/29 with Vik) TCM Discharge Criteria Medication Knowledge: 05/25 states she finished atb and prednsione and is just on routine meds Disease Management/Concern/Wha: 05/25 s/s pneumonia, recurrent a fib Transitional Care Comment: 05/17 review CAP, cefdinir, azithromycin, prednsione 05/18 review need to rest drink fluids and pickle solution maker meds. only one day of zithromax and 3 day fo bid cefdinir with single dose prednisone for 9 days. states will make f/u with md tomorrow to eval need to cont. tx. 05/25 had ER visit on 05/19 after she had O2 turned off and dx with a fib with rate in 80's. denies recurrent s/s of pneumonia or a fib 05/19 She discharged yesterday, 24 hour phone call performed. We reviewed her discharge orders/medications, perscriptions have been filled. She sounds short of breath and says that her concentrator keeps alarming. I asked her to call [facility] as soon as we hung up to have them come check it out. She has O2 bottles availible if needed. I encouraged her to use a bottle until [facility]ry arrived. JOSE MUNGUIA May 25, 2018 12:00
[2018-05-29] MEDS ORDERED: FURO-45 PO (16:03)
[2018-05-29] MEDS ORDERED: FLUT1DIS28 IH (16:04)
--- NOTE | 2018-06-01 10:17 | Transitional Care Management ---
Assessment Visit Type: Telephone Visit Spoke with: Svetlana Cardiac: WNL Except Cardiac Comment: 05/25 denies recurrent chest pain since ER visit on 05/19 for a fib. denies racing heart or edema 06/01 Blood pressure has been high, Dr Chery started her on Amalodpine 5mg QD. She checks her BP at home. Respiratory: WNL Except Respiratory Comment: 05/25 reports is wearing O2 at 1L most of the time. took it off to go to mailbox for first time yesterday. little SOB or cough persist 06/01 1L, denies cough, but was getting a little SOB at the end of the conversation. GI: Nutrition: WNL GI Comment: 05/25 had increased appetite when taking prednisone. denies Diarrhea while on atb Constipation?: No Musculoskeletal, Exercise: WNL Except Musculoskeletal, Excercise Com: 05/25 still weak and tired but, gets up frequently and does a few things routinely 06/01 Gets tired with activity, I encouraged her to pace her activities throughout the day. Mobility/Falls: WNL Feeling of Well Being: WNL Except Feeling of Well Being Comment: 05/25 still tired. wants to be better when son comes at [place] 06/01 Concerned about her high blood pressure. Pain/Management: WNL Pain/Management Comment: 05/25 denies Scheduled Follow-Up with Provi: Yes (06/[address] Chery on 06/13) Following Discharge Instructio: Yes TCM Discharge Criteria Medication Knowledge: 05/25 states she finished atb and prednsione and is just on routine meds 06/01 Was started on norvasc, but she did not know the name, she read it off the bottle. Disease Management/Concern/Wha: 05/25 s/s pneumonia, recurrent a fib Transitional Care Comment: 05/17 review CAP, cefdinir, azithromycin, prednsione 05/18 review need to rest drink fluids and orange picker meds. only one day of zithromax and 3 day fo bid cefdinir with single dose prednisone for 9 days. states will make f/u with md tomorrow to eval need to cont. tx. 05/25 had ER visit on 05/19 after she had O2 turned off and dx with a fib with rate in 80's. denies recurrent s/s of pneumonia or a fib 05/19 She discharged yesterday, 24 hour phone call performed. We reviewed her discharge orders/medications, perscriptions have been filled. She sounds short of breath and says that her concentrator keeps alarming. I asked her to call Merry as soon as we hung up to have them come check it out. She has O2 bottles availible if needed. I encouraged her to use a bottle until Merry arrived. 05/20 Merry responded quickly, and the problem was that she was turning the O2 adjustment to far and stopping the flow of oxygen. They reeducated her on the use of the concentrator. Later she began to have chest pain and went to the ER and was found to be in A-fib in a controlled rate. She discharged home and will call Tuesday to make an appt to see Dr Chery. She states that her chest pain was "probably just nerves and anxiety". 06/01 She was started on norvasc, and will see Dr Chery again on 06/13. She continues on 1l NC, denies sob or cough. She has had no further issues with her concentrator. Copies to: RICHARD CHERY MD ; AMANDA MCMILLAN Jun 01, 2018 10:16
--- NOTE | 2018-06-09 11:19 | Transitional Care Management ---
Assessment Cardiac: WNL Except Cardiac Comment: 05/25 denies recurrent chest pain since ER visit on 05/19 for a fib. denies racing heart or edema 06/01 Blood pressure has been high, Dr Chery started her on Amalodpine 5mg QD. She checks her BP at home. Respiratory: WNL Except Respiratory Comment: 05/25 reports is wearing O2 at 1L most of the time. took it off to go to mailbox for first time yesterday. little SOB or cough persist 06/01 1L, denies cough, but was getting a little SOB at the end of the conversation. GI: Nutrition: WNL GI Comment: 05/25 had increased appetite when taking prednisone. denies Diarrhea while on atb Constipation?: No Musculoskeletal, Exercise: WNL Except Musculoskeletal, Excercise Com: 05/25 still weak and tired but, gets up frequently and does a few things routinely 06/01 Gets tired with activity, I encouraged her to pace her activities throughout the day. Mobility/Falls: WNL Feeling of Well Being: WNL Except Feeling of Well Being Comment: 05/25 still tired. wants to be better when son comes at [place] 06/01 Concerned about her high blood pressure. Pain/Management: WNL Pain/Management Comment: 05/25 denies Scheduled Follow-Up with Provi: Yes (06/[address] Chery on 06/13) Following Discharge Instructio: Yes TCM Discharge Criteria Medication Knowledge: 05/25 states she finished atb and prednsione and is just on routine meds 06/01 Was started on norvasc, but she did not know the name, she read it off the bottle. Disease Management/Concern/Wha: 05/25 s/s pneumonia, recurrent a fib Transitional Care Comment: 05/17 review CAP, cefdinir, azithromycin, prednsione 05/18 review need to rest drink fluids and sampler pickup meds. only one day of zithromax and 3 day fo bid cefdinir with single dose prednisone for 9 days. states will make f/u with md tomorrow to eval need to cont. tx. 05/25 had ER visit on 05/19 after she had O2 turned off and dx with a fib with rate in 80's. denies recurrent s/s of pneumonia or a fib 05/19 She discharged yesterday, 24 hour phone call performed. We reviewed her discharge orders/medications, perscriptions have been filled. She sounds short of breath and says that her concentrator keeps alarming. I asked her to call [facility] as soon as we hung up to have them come check it out. She has O2 bottles availible if needed. I encouraged her to use a bottle until Merry arrived. 05/20 Merry responded quickly, and the problem was that she was turning the O2 adjustment to far and stopping the flow of oxygen. They reeducated her on the use of the concentrator. Later she began to have chest pain and went to the ER and was found to be in A-fib in a controlled rate. She discharged home and will call Tuesday to make an appt to see Dr Chery. She states that her chest pain was "probably just nerves and anxiety". 06/01 She was started on norvasc, and will see Dr Chery again on 06/13. She continues on 1l NC, denies sob or cough. She has had no further issues with her concentrator. 06/09 pt stated that she had a bad night and didn't sleep well. states she has a lot of pain on her left thigh and hip area. States she thinks she might have a kidney stone and was headed to urgent care since the doctor's office is closed. Instructed her to keep her appt with Dr Chery on 06/13 but did not go over anything else as she was going to urgent care. Copies to: RICHARD CHERY MD ; SEPTEMBERCHRISTELLE Jun 09, 2018 11:19
[2018-06-13] MEDS ORDERED: AMLO-127 PO (12:58)
[2018-06-13] MEDS ORDERED: FURO-47 PO (12:58)
--- NOTE | 2018-06-14 18:33 | Transitional Care Management ---
Assessment Visit Type: Telephone Visit Cardiac: WNL Except Cardiac Comment: 05/25 denies recurrent chest pain since ER visit on 05/19 for a fib. denies racing heart or edema 06/01 Blood pressure has been high, Dr Chery started her on Amalodpine 5mg QD. She checks her BP at home. 06/14 PB remains high. Saw Dr Chery yesterday, he ordered lasix 40mg, but she dosn't think she should take that much. Respiratory: WNL Except Respiratory Comment: 05/25 reports is wearing O2 at 1L most of the time. took it off to go to mailbox for first time yesterday. little SOB or cough persist 06/01 1L, denies cough, but was getting a little SOB at the end of the conversation. GI: Nutrition: WNL GI Comment: 05/25 had increased appetite when taking prednisone. denies Diarrhea while on atb Wt Gain/Loss: WNL Except Weight Comment: 06/14 States, "I'm a little swollen in my legs." Constipation?: No Musculoskeletal, Exercise: WNL Except Musculoskeletal, Excercise Com: 05/25 still weak and tired but, gets up frequently and does a few things routinely 06/01 Gets tired with activity, I encouraged her to pace her activities throughout the day. 06/14 Left hip and back pain. Mobility/Falls: WNL Except Mobility Comment: 06/14 Mobility is reduced by the hip and back pain. She stays in a chair most of the time. Feeling of Well Being: WNL Except Feeling of Well Being Comment: 05/25 still tired. wants to be better when son comes at [place] 06/01 Concerned about her high blood pressure. 06/14 Feels as if she is getting worse by the day. Pain/Management: WNL Except Pain/Management Comment: 05/25 denies 06/14 Left hip pain, x-rays done yesterday, she may begin PT in three weeks. Scheduled Follow-Up with Provi: Yes (06/[address] Chery on 06/13) Following Discharge Instructio: No (06/14 Jolie not want to take lasix as prescribed. I educated her on lasix and encouraged her to take as prescribed.) TCM Discharge Criteria Medication Knowledge: 05/25 states she finished atb and prednsione and is just on routine meds 06/01 Was started on norvasc, but she did not know the name, she read it off the bottle. 06/14 Was started on lasix 40mg, does not think she needs it. After education, she says she may take 20 mg. Disease Management/Concern/Wha: 05/25 s/s pneumonia, recurrent a fib Transitional Care Comment: 05/17 review CAP, cefdinir, azithromycin, prednsione 05/18 review need to rest drink fluids and slat pickler meds. only one day of zithromax and 3 day fo bid cefdinir with single dose prednisone for 9 days. states will make f/u with md tomorrow to eval need to cont. tx. 05/25 had ER visit on 05/19 after she had O2 turned off and dx with a fib with rate in 80's. denies recurrent s/s of pneumonia or a fib 05/19 She discharged yesterday, 24 hour phone call performed. We reviewed her discharge orders/medications, perscriptions have been filled. She sounds short of breath and says that her concentrator keeps alarming. I asked her to call Merry as soon as we hung up to have them come check it out. She has O2 bottles availible if needed. I encouraged her to use a bottle until Merry arrived. 05/20 Merry responded quickly, and the problem was that she was turning the O2 adjustment to far and stopping the flow of oxygen. They reeducated her on the use of the concentrator. Later she began to have chest pain and went to the ER and was found to be in A-fib in a controlled rate. She discharged home and will call Tuesday to make an appt to see Dr Chery. She states that her chest pain was "probably just nerves and anxiety". 06/01 She was started on norvasc, and will see Dr Chery again on 06/13. She continues on 1l NC, denies sob or cough. She has had no further issues with her concentrator. 06/09 pt stated that she had a bad night and didn't sleep well. states she has a lot of pain on her left thigh and hip area. States she thinks she might have a kidney stone and was headed to urgent care since the doctor's office is closed. Instructed her to keep her appt with Dr Chery on 06/13 but did not go over anything else as she was going to urgent care. 06/14 She did not go to urgent care, she saw Dr Chery yesterday, lasix was ordered for her HTN, which she doesn't want to take, education provided, and we will follow up in a few days to see. Xrays were done of her hip and back, F/U in three weeks. Copies to: RICHARD CHERY MD ; AMANDA MCMILLAN Jun 14, 2018 18:33
--- NOTE | 2018-06-19 10:47 | Transitional Care Management ---
Assessment Cardiac: WNL Except Cardiac Comment: 05/25 denies recurrent chest pain since ER visit on 05/19 for a fib. denies racing heart or edema 06/01 Blood pressure has been high, Dr Chery started her on Amalodpine 5mg QD. She checks her BP at home. 06/14 PB remains high. Saw Dr Chery yesterday, he ordered lasix 40mg, but she dosn't think she should take that much. Respiratory: WNL Except Respiratory Comment: 05/25 reports is wearing O2 at 1L most of the time. took it off to go to mailbox for first time yesterday. little SOB or cough persist 06/01 1L, denies cough, but was getting a little SOB at the end of the conversation. GI: Nutrition: WNL GI Comment: 05/25 had increased appetite when taking prednisone. denies Diarrhea while on atb Wt Gain/Loss: WNL Except Weight Comment: 06/14 States, "I'm a little swollen in my legs." Constipation?: No Musculoskeletal, Exercise: WNL Except Musculoskeletal, Excercise Com: 05/25 still weak and tired but, gets up frequently and does a few things routinely 06/01 Gets tired with activity, I encouraged her to pace her activities throughout the day. 06/14 Left hip and back pain. Mobility/Falls: WNL Except Mobility Comment: 06/14 Mobility is reduced by the hip and back pain. She stays in a chair most of the time. Feeling of Well Being: WNL Except Feeling of Well Being Comment: 05/25 still tired. wants to be better when son comes at [place] 06/01 Concerned about her high blood pressure. 06/14 Feels as if she is getting worse by the day. Pain/Management: WNL Except Pain/Management Comment: 05/25 denies 06/14 Left hip pain, x-rays done yesterday, she may begin PT in three weeks. Scheduled Follow-Up with Provi: Yes (06/[address] Chery on 06/13) Following Discharge Instructio: No (06/14 Jolie not want to take lasix as prescribed. I educated her on lasix and encouraged her to take as prescribed.) TCM Discharge Criteria Medication Knowledge: 05/25 states she finished atb and prednsione and is just on routine meds 06/01 Was started on norvasc, but she did not know the name, she read it off the bottle. 06/14 Was started on lasix 40mg, does not think she needs it. After education, she says she may take 20 mg. Disease Management/Concern/Wha: 05/25 s/s pneumonia, recurrent a fib Transitional Care Comment: 05/17 review CAP, cefdinir, azithromycin, prednsione 05/18 review need to rest drink fluids and potato picker meds. only one day of zithromax and 3 day fo bid cefdinir with single dose prednisone for 9 days. states will make f/u with md tomorrow to eval need to cont. tx. 05/25 had ER visit on 05/19 after she had O2 turned off and dx with a fib with rate in 80's. denies recurrent s/s of pneumonia or a fib 05/19 She discharged yesterday, 24 hour phone call performed. We reviewed her discharge orders/medications, perscriptions have been filled. She sounds short of breath and says that her concentrator keeps alarming. I asked her to call Merry as soon as we hung up to have them come check it out. She has O2 bottles availible if needed. I encouraged her to use a bottle until Merry arrived. 05/20 Merry responded quickly, and the problem was that she was turning the O2 adjustment to far and stopping the flow of oxygen. They reeducated her on the use of the concentrator. Later she began to have chest pain and went to the ER and was found to be in A-fib in a controlled rate. She discharged home and will call Tuesday to make an appt to see Dr Chery. She states that her chest pain was "probably just nerves and anxiety". 06/01 She was started on norvasc, and will see Dr Chery again on 06/13. She continues on 1l NC, denies sob or cough. She has had no further issues with her concentrator. 06/09 pt stated that she had a bad night and didn't sleep well. states she has a lot of pain on her left thigh and hip area. States she thinks she might have a kidney stone and was headed to urgent care since the doctor's office is closed. Instructed her to keep her appt with Dr Chery on 06/13 but did not go over anything else as she was going to urgent care. 06/14 She did not go to urgent care, she saw Dr Chery yesterday, lasix was ordered for her HTN, which she doesn't want to take, education provided, and we will follow up in a few days to see. Xrays were done of her hip and back, F/U in three weeks. 06/19 [facility] states her back still hurts, she is taking tylenol for it. Educated her to make sure she does not exceed the recommended amount on the bottle and she said she was staying well under that. She states she is taking all of her medications as ordered, knows that they are important for her blood pressure. She said her breathing is good when she is home because she always wears her oxygen. She said she went to [facility] yesterday and did not have a portable tank and her sats were 80% when she got home. Asked her why she did not have a tank and she said she ran out and wasn't sure if she could get more. I called [facility] and they said they would take her more. Told her to wear her oxygen when she goes out once she gets the portable tanks. She denied any other problems and said she has a follow up with Dr Chery on 07/04. Copies to: RICHARD CHERY MD ; CHRISTELLE REYNAGA Jun 19, 2018 10:47
--- NOTE | 2018-06-26 11:12 | Transitional Care Management ---
Assessment Visit Type: Telephone Visit Cardiac: WNL Except Cardiac Comment: 05/25 denies recurrent chest pain since ER visit on 05/19 for a fib. denies racing heart or edema 06/01 Blood pressure has been high, Dr Chery started her on Amalodpine 5mg QD. She checks her BP at home. 06/14 PB remains high. Saw Dr Chery yesterday, he ordered lasix 40mg, but she dosn't think she should take that much. 06/26 stopped taking one of her new BP meds, she didn't remember the name to tell me which one. Stated it made her feel really sick so she didn't want to take it anymore. takes BP at home and said that "it's been fine". Last BP reading was yesterday and was 147/67 Respiratory: WNL Except Respiratory Comment: 05/25 reports is wearing O2 at 1L most of the time. took it off to go to mailbox for first time yesterday. little SOB or cough persist 06/01 1L, denies cough, but was getting a little SOB at the end of the conversation. 06/26 reported breathing is fine when she wears the O2, has been adjusting to wearing O2 all the time. Still takes it off for short periods of time and will see that her sats are in the 80's. encouraged her not to take her O2 off anymore. GI: Nutrition: WNL GI Comment: 05/25 had increased appetite when taking prednisone. denies Diarrhea while on atb Wt Gain/Loss: WNL Except Weight Comment: 06/14 States, "I'm a little swollen in my legs." Constipation?: No Musculoskeletal, Exercise: WNL Except Musculoskeletal, Excercise Com: 05/25 still weak and tired but, gets up frequently and does a few things routinely 06/01 Gets tired with activity, I encouraged her to pace her activities throughout the day. 06/14 Left hip and back pain. 06/26 back pain is better Mobility/Falls: WNL Except Mobility Comment: 06/14 Mobility is reduced by the hip and back pain. She stays in a chair most of the time. Feeling of Well Being: WNL Except Feeling of Well Being Comment: 05/25 still tired. wants to be better when son comes at [place] 06/01 Concerned about her high blood pressure. 06/14 Feels as if she is getting worse by the day. Pain/Management: WNL Except Pain/Management Comment: 05/25 denies 06/14 Left hip pain, x-rays done yesterday, she may begin PT in three weeks. Scheduled Follow-Up with [facility]: Yes (06/[address] Chery on 06/13) Following Discharge Instructio: No (06/14 Jolie not want to take lasix as prescribed. I educated her on lasix and encouraged her to take as prescribed.) TCM Discharge Criteria Medication Knowledge: 05/25 states she finished atb and prednsione and is just on routine meds 06/01 Was started on norvasc, but she did not know the name, she read it off the bottle. 06/14 Was started on lasix 40mg, does not think she needs it. After education, she says she may take 20 mg. 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 only one day of zithromax and 3 day fo bid cefdinir with single dose prednisone for 9 days. states will make f/u with md tomorrow to eval need to cont. tx. 05/25 had ER visit on 05/19 after she had O2 turned off and dx with a fib with rate in 80's. denies recurrent s/s of pneumonia or a fib 05/19 She discharged yesterday, 24 hour phone call performed. We reviewed her discharge orders/medications, perscriptions have been filled. She sounds short of breath and says that her concentrator keeps alarming. I asked her to call [facility] as soon as we hung up to have them come check it out. She has O2 bottles availible if needed. I encouraged her to use a bottle until [facility] arrived. 05/20 [facility] responded quickly, and the problem was that she was turning the O2 adjustment to far and stopping the flow of oxygen. They reeducated her on the use of the concentrator. Later she began to have chest pain and went to the ER and was found to be in A-fib in a controlled rate. She discharged home and will call Tuesday to make an appt to see Dr Chery. She states that her chest pain was "probably just nerves and anxiety". 06/01 She was started on norvasc, and will see Dr Chery again on 06/13. She continues on 1l NC, denies sob or cough. She has had no further issues with her concentrator. 06/09 pt stated that she had a bad night and didn't sleep well. states she has a lot of pain on her left thigh and hip area. States she thinks she might have a kidney stone and was headed to urgent care since the doctor's office is closed. Instructed her to keep her appt with Dr Chery on 06/13 but did not go over anything else as she was going to urgent care. 06/14 She did not go to urgent care, she saw Dr Chery yesterday, lasix was ordered for her HTN, which she doesn't want to take, education provided, and we will follow up in a few days to see. Xrays were done of her hip and back, F/U in three weeks. 06/19 Sveltana states her back still hurts, she is taking tylenol for it. Educated her to make sure she does not exceed the recommended amount on the bottle and she said she was staying well under that. She states she is taking all of her medications as ordered, knows that they are important for her blood pressure. She said her breathing is good when she is home because she always wears her oxygen. She said she went to [facility] yesterday and did not have a portable tank and her sats were 80% when she got home. Asked her why she did not have a tank and she said she ran out and wasn't sure if she could get more. I called [facility] and they said they would take her more. Told her to wear her oxygen when she goes out once she gets the portable tanks. She denied any other problems and said she has a follow up with Dr Chery on 07/04. 06/26 has follow up with Dr Chery on 07/04. stopped taking one of her BP meds but unable to tell me which one. Still wearing O2 most of the time. Back pain better. see more detailed comments above CHRISTELLE REYNAGA Jun 26, 2018 11:12
[2018-07-04] MEDS ORDERED: FURO-45 PO (15:46)
[2018-07-04] MEDS ORDERED: FLUT16SP19 NS (15:46)
--- NOTE | 2018-07-06 13:11 | Transitional Care Management ---
Assessment Visit Type: Telephone Visit Cardiac: WNL Except Cardiac Comment: 05/25 denies recurrent chest pain since ER visit on 05/19 for a fib. denies racing heart or edema 06/01 Blood pressure has been high, Dr Chery started her on Amalodpine 5mg QD. She checks her BP at home. 06/14 PB remains high. Saw Dr Chery yesterday, he ordered lasix 40mg, but she dosn't think she should take that much. 06/26 stopped taking one of her new BP meds, she didn't remember the name to tell me which one. Stated it made her feel really sick so she didn't want to take it anymore. takes BP at home and said that "it's been fine". Last BP reading was yesterday and was 147/67 Respiratory: WNL Except Respiratory Comment: 05/25 reports is wearing O2 at 1L most of the time. took it off to go to mailbox for first time yesterday. little SOB or cough persist 06/01 1L, denies cough, but was getting a little SOB at the end of the conversation. 06/26 reported breathing is fine when she wears the O2, has been adjusting to wearing O2 all the time. Still takes it off for short periods of time and will see that her sats are in the 80's. encouraged her not to take her O2 off anymore. GI: Nutrition: WNL GI Comment: 05/25 had increased appetite when taking prednisone. denies Diarrhea while on atb Wt Gain/Loss: WNL Except Weight Comment: 06/14 States, "I'm a little swollen in my legs." Constipation?: No Musculoskeletal, Exercise: WNL Except Musculoskeletal, Excercise Com: 05/25 still weak and tired but, gets up frequently and does a few things routinely 06/01 Gets tired with activity, I encouraged her to pace her activities throughout the day. 06/14 Left hip and back pain. 06/26 back pain is better Mobility/Falls: WNL Except Mobility Comment: 06/14 Mobility is reduced by the hip and back pain. She stays in a chair most of the time. Feeling of Well Being: WNL Except Feeling of Well Being Comment: 05/25 still tired. wants to be better when son comes at [place] 06/01 Concerned about her high blood pressure. 06/14 Feels as if she is getting worse by the day. Pain/Management: WNL Except Pain/Management Comment: 05/25 denies 06/14 Left hip pain, x-rays done yesterday, she may begin PT in three weeks. Scheduled Follow-Up with Provi: Yes (06/[address] Chery on 06/13) Following Discharge Instructio: No (06/14 Jolie not want to take lasix as prescribed. I educated her on lasix and encouraged her to take as prescribed.) TCM Discharge Criteria Medication Knowledge: 05/25 states she finished atb and prednsione and is just on routine meds 06/01 Was started on norvasc, but she did not know the name, she read it off the bottle. 06/14 Was started on lasix 40mg, does not think she needs it. After education, she says she may take 20 mg. Disease Management/Concern/Wha: 05/25 s/s pneumonia, recurrent a fib Transitional Care Comment: 05/17 review CAP, cefdinir, azithromycin, prednsione 05/18 review need to rest drink fluids and rock picker meds. only one day of zithromax and 3 day fo bid cefdinir with single dose prednisone for 9 days. states will make f/u with md tomorrow to eval need to cont. tx. 05/25 had ER visit on 05/19 after she had O2 turned off and dx with a fib with rate in 80's. denies recurrent s/s of pneumonia or a fib 05/19 She discharged yesterday, 24 hour phone call performed. We reviewed her discharge orders/medications, perscriptions have been filled. She sounds short of breath and says that her concentrator keeps alarming. I asked her to call [facility] as soon as we hung up to have them come check it out. She has O2 bottles availible if needed. I encouraged her to use a bottle until [facility] arrived. 05/20 [facility] responded quickly, and the problem was that she was turning the O2 adjustment to far and stopping the flow of oxygen. They reeducated her on the use of the concentrator. Later she began to have chest pain and went to the ER and was found to be in A-fib in a controlled rate. She discharged home and will call Tuesday to make an appt to see Dr Chery. She states that her chest pain was "probably just nerves and anxiety". 06/01 She was started on norvasc, and will see Dr Chery again on 06/13. She continues on 1l NC, denies sob or cough. She has had no further issues with her concentrator. 06/09 pt stated that she had a bad night and didn't sleep well. states she has a lot of pain on her left thigh and hip area. States she thinks she might have a kidney stone and was headed to urgent care since the doctor's office is closed. Instructed her to keep her appt with Dr Chery on 06/13 but did not go over anything else as she was going to urgent care. 06/14 She did not go to urgent care, she saw Dr Chery yesterday, lasix was ordered for her HTN, which she doesn't want to take, education provided, and we will follow up in a few days to see. Xrays were done of her hip and back, F/U in three weeks. 06/19 Svetlana states her back still hurts, she is taking tylenol for it. Educated her to make sure she does not exceed the recommended amount on the bottle and she said she was staying well under that. She states she is taking all of her medications as ordered, knows that they are important for her blood pressure. She said her breathing is good when she is home because she always wears her oxygen. She said she went to [facility] yesterday and did not have a portable tank and her sats were 80% when she got home. Asked her why she did not have a tank and she said she ran out and wasn't sure if she could get more. I called [facility] and they said they would take her more. Told her to wear her oxygen when she goes out once she gets the portable tanks. She denied any other problems and said she has a follow up with Dr Chery on 07/04. 06/26 has follow up with Dr Chery on 07/04. stopped taking one of her BP meds but unable to tell me which one. Still wearing O2 most of the time. Back pain better. see more detailed comments above 07/06 pt had appt [address] Dr Chery two days ago, doing pretty well. Her Na is low so she has been restricting her fluids. pt says she is to get labs done again after the new year. No other questions or problems. pt requests another call after blood work is drawn at the beginning of the year. SEPTEMBERCHRISTELLE Jul 06, 2018 13:11
[2018-07-19] MEDS ORDERED: METO100T20 PO (09:15)
--- NOTE | 2018-07-22 10:39 | Transitional Care Management ---
Assessment Visit Type: Telephone Visit Cardiac: WNL Except Cardiac Comment: 05/25 denies recurrent chest pain since ER visit on 05/19 for a fib. denies racing heart or edema 06/01 Blood pressure has been high, Dr Chery started her on Amalodpine 5mg QD. She checks her BP at home. 06/14 PB remains high. Saw Dr Chery yesterday, he ordered lasix 40mg, but she dosn't think she should take that much. 06/26 stopped taking one of her new BP meds, she didn't remember the name to tell me which one. Stated it made her feel really sick so she didn't want to take it anymore. takes BP at home and said that "it's been fine". Last BP reading was yesterday and was 147/67 07/22 States BP daily is "up and down". Not taking lasix, has no pedal edema. Is SOB on phone and related lasix may remove fluid in her lung; states she will take it today and thereafter Respiratory: WNL Except Respiratory Comment: 05/25 reports is wearing O2 at 1L most of the time. took it off to go to mailbox for first time yesterday. little SOB or cough persist 06/01 1L, denies cough, but was getting a little SOB at the end of the conversation. 06/26 reported breathing is fine when she wears the O2, has been adjusting to wearing O2 all the time. Still takes it off for short periods of time and will see that her sats are in the 80's. encouraged her not to take her O2 off anymore. 07/22 IS SOB as above. Wearing O2 all the time. no flu sx GI: Nutrition: WNL GI Comment: 05/25 had increased appetite when taking prednisone. denies Diarrhea while on atb 07/22 states she is resricting fluid and NA was up to 131 yesterday Wt Gain/Loss: WNL Except Weight Comment: 06/14 States, "I'm a little swollen in my legs." Constipation?: No Musculoskeletal, Exercise: WNL Except Musculoskeletal, Excercise Com: 05/25 still weak and tired but, gets up frequently and does a few things routinely 06/01 Gets tired with activity, I encouraged her to pace her activities throughout the day. 06/14 Left hip and back pain. 06/26 back pain is better 07/22 pain is better and more active, no PT ordered Mobility/Falls: WNL Except Mobility Comment: 06/14 Mobility is reduced by the hip and back pain. She stays in a chair most of the time. 07/22 was able to go shopping yesterday but is worn out today. Using cane Feeling of Well Being: WNL Except Feeling of Well Being Comment: 05/25 still tired. wants to be better when son comes at [place] 06/01 Concerned about her high blood pressure. 06/14 Feels as if she is getting worse by the day. 07/22 had good holidays with out of town family in to visit Pain/Management: WNL Except Pain/Management Comment: 05/25 denies 06/14 Left hip pain, x-rays done yesterday, she may begin PT in three weeks. 07/22 pain is better Scheduled Follow-Up with Provi: Yes (07/22 sees Vik next week) Following Discharge Instructio: No (06/14 Jolie not want to take lasix as prescribed. I educated her on lasix and encouraged her to take as prescribed.) TCM Discharge Criteria Medication Knowledge: 05/25 states she finished atb and prednsione and is just on routine meds 06/01 Was started on norvasc, but she did not know the name, she read it off the bottle. 06/14 Was started on lasix 40mg, does not think she needs it. After education, she says she may take 20 mg. 07/22 MD dc amlodipine and order 07/19 the lasix dose at 20mg. States she stopped the lasix for a week but agree to take it now that she knows may be making her SOB Disease Management/Concern/Wha: 05/25 s/s pneumonia, recurrent a fib Transitional Care Comment: 05/17 review CAP, cefdinir, azithromycin, prednsione 05/18 review need to rest drink fluids and roller picker meds. only one day of zithromax and 3 day fo bid cefdinir with single dose prednisone for 9 days. states will make f/u with md tomorrow to eval need to cont. tx. 05/25 had ER visit on 05/19 after she had O2 turned off and dx with a fib with rate in 80's. denies recurrent s/s of pneumonia or a fib 05/19 She discharged yesterday, 24 hour phone call performed. We reviewed her discharge orders/medications, perscriptions have been filled. She sounds short of breath and says that her concentrator keeps alarming. I asked her to call [facility] as soon as we hung up to have them come check it out. She has O2 bottles availible if needed. I encouraged her to use a bottle until [facility] arrived. 05/20 [facility] responded quickly, and the problem was that she was turning the O2 adjustment to far and stopping the flow of oxygen. They reeducated her on the use of the concentrator. Later she began to have chest pain and went to the ER and was found to be in A-fib in a controlled rate. She discharged home and will call Tuesday to make an appt to see Dr Chery. She states that her chest pain was "probably just nerves and anxiety". 06/01 She was started on norvasc, and will see Dr Chery again on 06/13. She continues on 1l NC, denies sob or cough. She has had no further issues with her concentrator. 06/09 pt stated that she had a bad night and didn't sleep well. states she has a lot of pain on her left thigh and hip area. States she thinks she might have a kidney stone and was headed to urgent care since the doctor's office is closed. Instructed her to keep her appt with Dr Chery on 06/13 but did not go over anything else as she was going to urgent care. 06/14 She did not go to urgent care, she saw Dr Chery yesterday, lasix was ordered for her HTN, which she doesn't want to take, education provided, and we will follow up in a few days to see. Xrays were done of her hip and back, F/U in three weeks. 06/19 Svetlana states her back still hurts, she is taking tylenol for it. Educated her to make sure she does not exceed the recommended amount on the bottle and she said she was staying well under that. She states she is taking all of her medications as ordered, knows that they are important for her blood pressure. She said her breathing is good when she is home because she always wears her oxygen. She said she went to [facility] yesterday and did not have a portable tank and her sats were 80% when she got home. Asked her why she did not have a tank and she said she ran out and wasn't sure if she could get more. I called [facility] and they said they would take her more. Told her to wear her oxygen when she goes out once she gets the portable tanks. She denied any other problems and said she has a follow up with Dr Chery on 07/04. 06/26 has follow up with Dr Chery on 07/04. stopped taking one of her BP meds but unable to tell me which one. Still wearing O2 most of the time. Back pain better. see more detailed comments above 07/06 [address] had app[address] Dr Chery two days ago, doing pretty well. Her Na is low so she has been restricting her fluids. pt says she is to get labs done again after the new year. No other questions or problems. pt requests another call after blood work is drawn at the beginning of the year. 1/5 agree to f/u phone call in a week or two. it was helpful to hear how the lasix may be helping her breathing and now she will take it (per MD order) JOSE MUNGUIA Jul 22, 2018 10:39
--- NOTE | 2018-07-31 12:52 | Transitional Care Management ---
Assessment Cardiac: WNL Except Cardiac Comment: 05/25 denies recurrent chest pain since ER visit on 05/19 for a fib. denies racing heart or edema 06/01 Blood pressure has been high, Dr Chery started her on Amalodpine 5mg QD. She checks her BP at home. 06/14 PB remains high. Saw Dr Chery yesterday, he ordered lasix 40mg, but she dosn't think she should take that much. 06/26 stopped taking one of her new BP meds, she didn't remember the name to tell me which one. Stated it made her feel really sick so she didn't want to take it anymore. takes BP at home and said that "it's been fine". Last BP reading was yesterday and was 147/67 07/22 States BP daily is "up and down". Not taking lasix, has no pedal edema. Is SOB on phone and related lasix may remove fluid in her lung; states she will take it today and thereafter Respiratory: WNL Except Respiratory Comment: 05/25 reports is wearing O2 at 1L most of the time. took it off to go to mailbox for first time yesterday. little SOB or cough persist 06/01 1L, denies cough, but was getting a little SOB at the end of the conversation. 06/26 reported breathing is fine when she wears the O2, has been adjusting to wearing O2 all the time. Still takes it off for short periods of time and will see that her sats are in the 80's. encouraged her not to take her O2 off anymore. 07/22 IS SOB as above. Wearing O2 all the time. no flu sx 07/31 states she is fighting a cold but her breathing is good. She hasn't gotten her flu shot but wants one. Encouraged her to call MD's office to get her vaccine. GI: Nutrition: WNL GI Comment: 05/25 had increased appetite when taking prednisone. denies Diarrhea while on atb 07/22 states she is resricting fluid and NA was up to 131 yesterday Wt Gain/Loss: WNL Except Weight Comment: 06/14 States, "I'm a little swollen in my legs." Constipation?: No Musculoskeletal, Exercise: WNL Except Musculoskeletal, Excercise Com: 05/25 still weak and tired but, gets up frequently and does a few things routinely 06/01 Gets tired with activity, I encouraged her to pace her activities throughout the day. 06/14 Left hip and back pain. 06/26 back pain is better 07/22 pain is better and more active, no PT ordered Mobility/Falls: WNL Except Mobility Comment: 06/14 Mobility is reduced by the hip and back pain. She stays in a chair most of the time. 07/22 was able to go shopping yesterday but is worn out today. Using cane Feeling of Well Being: WNL Except Feeling of Well Being Comment: 05/25 still tired. wants to be better when son comes at [place] 06/01 Concerned about her high blood pressure. 06/14 Feels as if she is getting worse by the day. 07/22 had good holidays with out of town family in to visit Pain/Management: WNL Except Pain/Management Comment: 05/25 denies 06/14 Left hip pain, x-rays done yesterday, she may begin PT in three weeks. 07/22 pain is better Scheduled Follow-Up with Provi: Yes (07/22 sees Vik next week) Following Discharge Instructio: No (06/14 Jolie not want to take lasix as prescribed. I educated her on lasix and encouraged her to take as prescribed.) TCM Discharge Criteria Medication Knowledge: 05/25 states she finished atb and prednsione and is just on routine meds 06/01 Was started on norvasc, but she did not know the name, she read it off the bottle. 06/14 Was started on lasix 40mg, does not think she needs it. After education, she says she may take 20 mg. 07/22 dc amlodipine and order / the lasix dose at 20mg. States she stopped the lasix for a week but agree to take it now that she knows may be making her SOB Disease Management/Concern/Wha: 05/25 s/s pneumonia, recurrent a fib Transitional Care Comment: 05/17 review CAP, cefdinir, azithromycin, prednsione 05/18 review need to rest drink fluids and moss picker meds. only one day of zithromax and 3 day fo bid cefdinir with single dose prednisone for 9 days. states will make f/u with tomorrow to eval need to cont. tx. 05/25 had ER visit on 05/19 after she had O2 turned off and dx with a fib with rate in 80's. denies recurrent s/s of pneumonia or a fib 05/19 She discharged yesterday, 24 hour phone call performed. We reviewed her discharge orders/medications, perscriptions have been filled. She sounds short of breath and says that her concentrator keeps alarming. I asked her to call [facility] as soon as we hung up to have them come check it out. She has O2 bottles availible if needed. I encouraged her to use a bottle until [facility] arrived. 05/20 [facility] responded quickly, and the problem was that she was turning the O2 adjustment to far and stopping the flow of oxygen. They reeducated her on the use of the concentrator. Later she began to have chest pain and went to the ER and was found to be in A-fib in a controlled rate. She discharged home and will call Tuesday to make an appt to see Dr Chery. She states that her chest pain was "probably just nerves and anxiety". 06/01 She was started on norvasc, and will see Dr Chery again on 06/13. She continues on 1l NC, denies sob or cough. She has had no further issues with her concentrator. 06/09 pt stated that she had a bad night and didn't sleep well. states she has a lot of pain on her left thigh and hip area. States she thinks she might have a kidney stone and was headed to urgent care since the doctor's office is closed. Instructed her to keep her appt with Dr Chery on 06/13 but did not go over anything else as she was going to urgent care. 06/14 She did not go to urgent care, she saw Dr Chery yesterday, lasix was ordered for her HTN, which she doesn't want to take, education provided, and we will follow up in a few days to see. Xrays were done of her hip and back, F/U in three weeks. 06/19 [facility] states her back still hurts, she is taking tylenol for it. Educated her to make sure she does not exceed the recommended amount on the bottle and she said she was staying well under that. She states she is taking all of her medications as ordered, knows that they are important for her blood pressure. She said her breathing is good when she is home because she always wears her oxygen. She said she went to [facility] yesterday and did not have a portable tank and her sats were 80% when she got home. Asked her why she did not have a tank and she said she ran out and wasn't sure if she could get more. I called [facility] and they said they would take her more. Told her to wear her oxygen when she goes out once she gets the portable tanks. She denied any other problems and said she has a follow up with Dr Chery on 07/04. 06/26 has follow up with Dr Chery on 07/04. stopped taking one of her BP meds but unable to tell me which one. Still wearing O2 most of the time. Back pain better. see more detailed comments above 07/06 [address] had appt with Dr Chery two days ago, doing pretty well. Her Na is low so she has been restricting her fluids. pt says she is to get labs done again after the new year. No other questions or problems. pt requests another call after blood work is drawn at the beginning of the year. 1/5 agree to f/u phone call in a week or two. it was helpful to hear how the lasix may be helping her breathing and now she will take it (per order) 07/31 no reported complaints other than having a cold. She states things are going well and that she is taking all of her medications as prescribed. She wants the flu vaccine, encouraged her to call Dr Chery's office for that Copies to: RICHARD CHERY MD ; CHRISTELLE REYNAGA Jul 31, 2018 12:52
--- NOTE | 2018-08-09 13:40 | Transitional Care Management ---
Assessment Cardiac: WNL Except Cardiac Comment: 05/25 denies recurrent chest pain since ER visit on 05/19 for a fib. denies racing heart or edema 06/01 Blood pressure has been high, Dr Chery started her on Amalodpine 5mg QD. She checks her BP at home. 06/14 PB remains high. Saw Dr Chery yesterday, he ordered lasix 40mg, but she dosn't think she should take that much. 06/26 stopped taking one of her new BP meds, she didn't remember the name to tell me which one. Stated it made her feel really sick so she didn't want to take it anymore. takes BP at home and said that "it's been fine". Last BP reading was yesterday and was 147/67 07/22 States BP daily is "up and down". Not taking lasix, has no pedal edema. Is SOB on phone and related lasix may remove fluid in her lung; states she will take it today and thereafter Respiratory: WNL Except Respiratory Comment: 05/25 reports is wearing O2 at 1L most of the time. took it off to go to mailbox for first time yesterday. little SOB or cough persist 06/01 1L, denies cough, but was getting a little SOB at the end of the conversation. 06/26 reported breathing is fine when she wears the O2, has been adjusting to wearing O2 all the time. Still takes it off for short periods of time and will see that her sats are in the 80's. encouraged her not to take her O2 off anymore. 07/22 IS SOB as above. Wearing O2 all the time. no flu sx 07/31 states she is fighting a cold but her breathing is good. She hasn't gotten her flu shot but wants one. Encouraged her to call MD's office to get her vaccine. GI: Nutrition: WNL GI Comment: 05/25 had increased appetite when taking prednisone. denies Diarrhea while on atb 07/22 states she is resricting fluid and NA was up to 131 yesterday Wt Gain/Loss: WNL Except Weight Comment: 06/14 States, "I'm a little swollen in my legs." Constipation?: No Musculoskeletal, Exercise: WNL Except Musculoskeletal, Excercise Com: 05/25 still weak and tired but, gets up frequently and does a few things routinely 06/01 Gets tired with activity, I encouraged her to pace her activities throughout the day. 06/14 Left hip and back pain. 06/26 back pain is better 07/22 pain is better and more active, no PT ordered Mobility/Falls: WNL Except Mobility Comment: 06/14 Mobility is reduced by the hip and back pain. She stays in a chair most of the time. 07/22 was able to go shopping yesterday but is worn out today. Using cane Feeling of Well Being: WNL Except Feeling of Well Being Comment: 05/25 still tired. wants to be better when son comes at [place] 06/01 Concerned about her high blood pressure. 06/14 Feels as if she is getting worse by the day. 07/22 had good holidays with out of town family in to visit Pain/Management: WNL Except Pain/Management Comment: 05/25 denies 06/14 Left hip pain, x-rays done yesterday, she may begin PT in three weeks. 07/22 pain is better Scheduled Follow-Up with Provi: Yes (07/22 sees Vik next week) Following Discharge Instructio: No (06/14 Jolie not want to take lasix as prescribed. I educated her on lasix and encouraged her to take as prescribed.) TCM Discharge Criteria Medication Knowledge: 05/25 states she finished atb and prednsione and is just on routine meds 06/01 Was started on norvasc, but she did not know the name, she read it off the bottle. 06/14 Was started on lasix 40mg, does not think she needs it. After education, she says she may take 20 mg. 07/22 dc amlodipine and order / the lasix dose at 20mg. States she stopped the lasix for a week but agree to take it now that she knows may be making her SOB Disease Management/Concern/Wha: 05/25 s/s pneumonia, recurrent a fib Transitional Care Comment: 05/17 review CAP, cefdinir, azithromycin, prednsione 05/18 review need to rest drink fluids and sisal picker meds. only one day of zithromax and 3 day fo bid cefdinir with single dose prednisone for 9 days. states will make f/u with tomorrow to eval need to cont. tx. 05/25 had ER visit on 05/19 after she had O2 turned off and dx with a fib with rate in 80's. denies recurrent s/s of pneumonia or a fib 05/19 She discharged yesterday, 24 hour phone call performed. We reviewed her discharge orders/medications, perscriptions have been filled. She sounds short of breath and says that her concentrator keeps alarming. I asked her to call [facility] as soon as we hung up to have them come check it out. She has O2 bottles availible if needed. I encouraged her to use a bottle until [facility] arrived. 05/20 [facility] responded quickly, and the problem was that she was turning the O2 adjustment to far and stopping the flow of oxygen. They reeducated her on the use of the concentrator. Later she began to have chest pain and went to the ER and was found to be in A-fib in a controlled rate. She discharged home and will call Tuesday to make an appt to see Dr Chery. She states that her chest pain was "probably just nerves and anxiety". 06/01 She was started on norvasc, and will see Dr Chery again on 06/13. She continues on 1l NC, denies sob or cough. She has had no further issues with her concentrator. 06/09 pt stated that she had a bad night and didn't sleep well. states she has a lot of pain on her left thigh and hip area. States she thinks she might have a kidney stone and was headed to urgent care since the doctor's office is closed. Instructed her to keep her appt with Dr Chery on 06/13 but did not go over anything else as she was going to urgent care. 06/14 She did not go to urgent care, she saw Dr Chery yesterday, lasix was ordered for her HTN, which she doesn't want to take, education provided, and we will follow up in a few days to see. Xrays were done of her hip and back, F/U in three weeks. 06/19 [facility] states her back still hurts, she is taking tylenol for it. Educated her to make sure she does not exceed the recommended amount on the bottle and she said she was staying well under that. She states she is taking all of her medications as ordered, knows that they are important for her blood pressure. She said her breathing is good when she is home because she always wears her oxygen. She said she went to [facility] yesterday and did not have a portable tank and her sats were 80% when she got home. Asked her why she did not have a tank and she said she ran out and wasn't sure if she could get more. I called [facility] and they said they would take her more. Told her to wear her oxygen when she goes out once she gets the portable tanks. She denied any other problems and said she has a follow up with Dr Chery on 07/04. 06/26 has follow up with Dr Chery on 07/04. stopped taking one of her BP meds but unable to tell me which one. Still wearing O2 most of the time. Back pain better. see more detailed comments above 07/06 pt had appt with Dr Chery two days ago, doing pretty well. Her Na is low so she has been restricting her fluids. pt says she is to get labs done again after the new year. No other questions or problems. pt requests another call after blood work is drawn at the beginning of the year. 1/ agree to f/u phone call in a week or two. it was helpful to hear how the lasix may be helping her breathing and now she will take it (per MD order) 07/31 no reported complaints other than having a cold. She states things are going well and that she is taking all of her medications as prescribed. She wants the flu vaccine, encouraged her to call Dr Chery's office for that 08/09 no answer, voicemail is full, unable to leave message SEPTEMBERCHRISTELLE Aug 09, 2018 13:40
--- NOTE | 2018-08-14 14:21 | Transitional Care Management ---
Assessment Visit Type: Telephone Visit Cardiac: WNL Except Cardiac Comment: 05/25 denies recurrent chest pain since ER visit on 05/19 for a fib. denies racing heart or edema 06/01 Blood pressure has been high, Dr iVk started her on Amalodpine 5mg QD. She checks her BP at home. 06/14 PB remains high. Saw Dr Chery yesterday, he ordered lasix 40mg, but she dosn't think she should take that much. 06/26 stopped taking one of her new BP meds, she didn't remember the name to tell me which one. Stated it made her feel really sick so she didn't want to take it anymore. takes BP at home and said that "it's been fine". Last BP reading was yesterday and was 147/67 07/22 States BP daily is "up and down". Not taking lasix, has no pedal edema. Is SOB on phone and related lasix may remove fluid in her lung; states she will take it today and thereafter Respiratory: WNL Except Respiratory Comment: 05/25 reports is wearing O2 at 1L most of the time. took it off to go to mailbox for first time yesterday. little SOB or cough persist 06/01 1L, denies cough, but was getting a little SOB at the end of the conversation. 06/26 reported breathing is fine when she wears the O2, has been adjusting to wearing O2 all the time. Still takes it off for short periods of time and will see that her sats are in the 80's. encouraged her not to take her O2 off anymore. 07/22 IS SOB as above. Wearing O2 all the time. no flu sx 07/31 states she is fighting a cold but her breathing is good. She hasn't gotten her flu shot but wants one. Encouraged her to call MD's office to get her vaccine. GI: Nutrition: WNL GI Comment: 05/25 had increased appetite when taking prednisone. denies Diarrhea while on atb 07/22 states she is resricting fluid and NA was up to 131 yesterday Wt Gain/Loss: WNL Except Weight Comment: 06/14 States, "I'm a little swollen in my legs." Constipation?: No Musculoskeletal, Exercise: WNL Except Musculoskeletal, Excercise Com: 05/25 still weak and tired but, gets up frequently and does a few things routinely 06/01 Gets tired with activity, I encouraged her to pace her activities throughout the day. 06/14 Left hip and back pain. 06/26 back pain is better 07/22 pain is better and more active, no PT ordered Mobility/Falls: WNL Except Mobility Comment: 06/14 Mobility is reduced by the hip and back pain. She stays in a chair most of the time. 07/22 was able to go shopping yesterday but is worn out today. Using cane Feeling of Well Being: WNL Except Feeling of Well Being Comment: 05/25 still tired. wants to be better when son comes at [place] 06/01 Concerned about her high blood pressure. 06/14 Feels as if she is getting worse by the day. 07/22 had good holidays with out of town family in to visit Pain/Management: WNL Except Pain/Management Comment: 05/25 denies 06/14 Left hip pain, x-rays done yesterday, she may begin PT in three weeks. 07/22 pain is better Scheduled Follow-Up with Provi: Yes (07/22 sees Vik next week) Following Discharge Instructio: No (06/14 Jolie not want to take lasix as prescribed. I educated her on lasix and encouraged her to take as prescribed.) TCM Discharge Criteria Medication Knowledge: 05/25 states she finished atb and prednsione and is just on routine meds 06/01 Was started on norvasc, but she did not know the name, she read it off the bottle. 06/14 Was started on lasix 40mg, does not think she needs it. After education, she says she may take 20 mg. 07/22 dc amlodipine and order /2 the lasix dose at 20mg. States she stopped the lasix for a week but agree to take it now that she knows may be making her SOB Disease Management/Concern/Wha: 05/25 s/s pneumonia, recurrent a fib Transitional Care Comment: 05/17 review CAP, cefdinir, azithromycin, prednsione 05/18 review need to rest drink fluids and chicken picker meds. only one day of zithromax and 3 day fo bid cefdinir with single dose prednisone for 9 days. states will make f/u with md tomorrow to eval need to cont. tx. 05/25 had ER visit on 05/19 after she had O2 turned off and dx with a fib with rate in 80's. denies recurrent s/s of pneumonia or a fib 05/19 She discharged yesterday, 24 hour phone call performed. We reviewed her discharge orders/medications, perscriptions have been filled. She sounds short of breath and says that her concentrator keeps alarming. I asked her to call [facility] as soon as we hung up to have them come check it out. She has O2 bottles availible if needed. I encouraged her to use a bottle until [facility] arrived. 05/20 [facility] responded quickly, and the problem was that she was turning the O2 adjustment to far and stopping the flow of oxygen. They reeducated her on the use of the concentrator. Later she began to have chest pain and went to the ER and was found to be in A-fib in a controlled rate. She discharged home and will call Tuesday to make an appt to see Dr Chery. She states that her chest pain was "probably just nerves and anxiety". 06/01 She was started on norvasc, and will see Dr Chery again on 06/13. She continues on 1l NC, denies sob or cough. She has had no further issues with her concentrator. 06/09 pt stated that she had a bad night and didn't sleep well. states she has a lot of pain on her left thigh and hip area. States she thinks she might have a kidney stone and was headed to urgent care since the doctor's office is closed. Instructed her to keep her appt with Dr Chery on 06/13 but did not go over anything else as she was going to urgent care. 06/14 She did not go to urgent care, she saw Dr Chery yesterday, lasix was ordered for her HTN, which she doesn't want to take, education provided, and we will follow up in a few days to see. Xrays were done of her hip and back, F/U in three weeks. 06/19 Svetlana states her back still hurts, she is taking tylenol for it. Educated her to make sure she does not exceed the recommended amount on the bottle and she said she was staying well under that. She states she is taking all of her medications as ordered, knows that they are important for her blood pressure. She said her breathing is good when she is home because she always wears her oxygen. She said she went to [facility] yesterday and did not have a portable tank and her sats were 80% when she got home. Asked her why she did not have a tank and she said she ran out and wasn't sure if she could get more. I called [facility] and they said they would take her more. Told her to wear her oxygen when she goes out once she gets the portable tanks. She denied any other problems and said she has a follow up with Dr Chery on 07/04. 06/26 has follow up with Dr Chery on 07/04. stopped taking one of her BP meds but unable to tell me which one. Still wearing O2 most of the time. Back pain better. see more detailed comments above 07/06 pt had appt with Dr Chery two days ago, doing pretty well. Her Na is low so she has been restricting her fluids. pt says she is to get labs done again after the new year. No other questions or problems. pt requests another call after blood work is drawn at the beginning of the year. 1/5 agree to f/u phone call in a week or two. it was helpful to hear how the lasix may be helping her breathing and now she will take it (per order) 07/31 no reported complaints other than having a cold. She states things are going well and that she is taking all of her medications as prescribed. She wants the flu vaccine, encouraged her to call Dr Chery's office for that 08/09 no answer, voicemail is full, unable to leave message 08/14 Svetlana is having trouble breathing and has a cough, she is worried that she has pneumonia again and has already made an appointment with Dr Chery for tomorrow. She is taking her medications as she should be and has no other complaints. Will call again after CHRISTELLE Carbajal Aug 14, 2018 14:20
[2018-08-15] MEDS ORDERED: MAGN400T36 PO (16:34)
[2018-08-15] MEDS ORDERED: PRED20TA6 PO (16:34)
--- NOTE | 2018-08-18 10:25 | Transitional Care Management ---
Assessment Cardiac: WNL Except Cardiac Comment: 05/25 denies recurrent chest pain since ER visit on 05/19 for a fib. denies racing heart or edema 06/01 Blood pressure has been high, Dr Lyles started her on Amalodpine 5mg QD. She checks her BP at home. 06/14 PB remains high. Saw Dr Lyles yesterday, he ordered lasix 40mg, but she dosn't think she should take that much. 06/26 stopped taking one of her new BP meds, she didn't remember the name to tell me which one. Stated it made her feel really sick so she didn't want to take it anymore. takes BP at home and said that "it's been fine". Last BP reading was yesterday and was 147/67 07/22 States BP daily is "up and down". Not taking lasix, has no pedal edema. Is SOB on phone and related lasix may remove fluid in her lung; states she will take it today and thereafter Respiratory: WNL Except Respiratory Comment: 05/25 reports is wearing O2 at 1L most of the time. took it off to go to mailbox for first time yesterday. little SOB or cough persist 06/01 1L, denies cough, but was getting a little SOB at the end of the conversation. 06/26 reported breathing is fine when she wears the O2, has been adjusting to wearing O2 all the time. Still takes it off for short periods of time and will see that her sats are in the 80's. encouraged her not to take her O2 off anymore. 07/22 IS SOB as above. Wearing O2 all the time. no flu sx 07/31 states she is fighting a cold but her breathing is good. She hasn't gotten her flu shot but wants one. Encouraged her to call MD's office to get her vaccine. GI: Nutrition: WNL GI Comment: 05/25 had increased appetite when taking prednisone. denies Diarrhea while on atb 07/22 states she is resricting fluid and NA was up to 131 yesterday Wt Gain/Loss: WNL Except Weight Comment: 06/14 States, "I'm a little swollen in my legs." Constipation?: No Musculoskeletal, Exercise: WNL Except Musculoskeletal, Excercise Com: 05/25 still weak and tired but, gets up frequently and does a few things routinely 06/01 Gets tired with activity, I encouraged her to pace her activities throughout the day. 06/14 Left hip and back pain. 06/26 back pain is better 07/22 pain is better and more active, no PT ordered Mobility/Falls: WNL Except Mobility Comment: 06/14 Mobility is reduced by the hip and back pain. She stays in a chair most of the time. 07/22 was able to go shopping yesterday but is worn out today. Using cane Feeling of Well Being: WNL Except Feeling of Well Being Comment: 05/25 still tired. wants to be better when son comes at [place] 06/01 Concerned about her high blood pressure. 06/14 Feels as if she is getting worse by the day. 07/22 had good holidays with out of town family in to visit Pain/Management: WNL Except Pain/Management Comment: 05/25 denies 06/14 Left hip pain, x-rays done yesterday, she may begin PT in three weeks. 07/22 pain is better Scheduled Follow-Up with Provi: Yes (07/22 sees Vik next week) Following Discharge Instructio: No (06/14 Jolie not want to take lasix as prescribed. I educated her on lasix and encouraged her to take as prescribed.) TCM Discharge Criteria Medication Knowledge: 05/25 states she finished atb and prednsione and is just on routine meds 06/01 Was started on norvasc, but she did not know the name, she read it off the bottle. 06/14 Was started on lasix 40mg, does not think she needs it. After education, she says she may take 20 mg. 07/22 dc amlodipine and order / the lasix dose at 20mg. States she stopped the lasix for a week but agree to take it now that she knows may be making her SOB Disease Management/Concern/Wha: 05/25 s/s pneumonia, recurrent a fib Transitional Care Comment: 05/17 review CAP, cefdinir, azithromycin, prednsione 05/18 review need to rest drink fluids and nut picker meds. only one day of zithromax and 3 day fo bid cefdinir with single dose prednisone for 9 days. states will make f/u with tomorrow to eval need to cont. tx. 05/25 had ER visit on 05/19 after she had O2 turned off and dx with a fib with rate in 80's. denies recurrent s/s of pneumonia or a fib 05/19 She discharged yesterday, 24 hour phone call performed. We reviewed her discharge orders/medications, perscriptions have been filled. She sounds short of breath and says that her concentrator keeps alarming. I asked her to call [facility] as soon as we hung up to have them come check it out. She has O2 bottles availible if needed. I encouraged her to use a bottle until [facility] arrived. 05/20 [facility] responded quickly, and the problem was that she was turning the O2 adjustment to far and stopping the flow of oxygen. They reeducated her on the use of the concentrator. Later she began to have chest pain and went to the ER and was found to be in A-fib in a controlled rate. She discharged home and will call Tuesday to make an appt to see Dr Lyles. She states that her chest pain was "probably just nerves and anxiety". 06/01 She was started on norvasc, and will see Dr Lyles again on 06/13. She continues on 1l NC, denies sob or cough. She has had no further issues with her concentrator. 06/09 pt stated that she had a bad night and didn't sleep well. states she has a lot of pain on her left thigh and hip area. States she thinks she might have a kidney stone and was headed to urgent care since the doctor's office is closed. Instructed her to keep her appt with Dr Lyles on 06/13 but did not go over anything else as she was going to urgent care. 06/14 She did not go to urgent care, she saw Dr Lyles yesterday, lasix was ordered for her HTN, which she doesn't want to take, education provided, and we will follow up in a few days to see. Xrays were done of her hip and back, F/U in three weeks. 06/19 [facility] states her back still hurts, she is taking tylenol for it. Educated her to make sure she does not exceed the recommended amount on the bottle and she said she was staying well under that. She states she is taking all of her medications as ordered, knows that they are important for her blood pressure. She said her breathing is good when she is home because she always wears her oxygen. She said she went to [facility] yesterday and did not have a portable tank and her sats were 80% when she got home. Asked her why she did not have a tank and she said she ran out and wasn't sure if she could get more. I called [facility] and they said they would take her more. Told her to wear her oxygen when she goes out once she gets the portable tanks. She denied any other problems and said she has a follow up with Dr Lyles on 07/04. 06/[address] follow up with Dr Lyles on 07/04. stopped taking one of her BP meds but unable to tell me which one. Still wearing O2 most of the time. Back pain better. see more detailed comments above 07/06 [address] had appt with Dr Lyles two days ago, doing pretty well. Her Na is low so she has been restricting her fluids. pt says she is to get labs done again after the new year. No other questions or problems. pt requests another call after blood work is drawn at the beginning of the year. 07/22 agree to f/u phone call in a week or two. it was helpful to hear how the lasix may be helping her breathing and now she will take it (per order) 07/31 no reported complaints other than having a cold. She states things are going well and that she is taking all of her medications as prescribed. She wants the flu vaccine, encouraged her to call Dr Lyles's office for that 08/09 no answer, voicemail is full, unable to leave message 08/14 Svetlana is having trouble breathing and has a cough, she is worried that she has pneumonia again and has already made an appointment with Dr Lyles for tomorrow. She is taking her medications as she should be and has no other complaints. Will call again after Dr hebert 08/[address] Lyles, she does not have pneumonia but states she has the flu. She has been prescribed prednisone and is using inhalers. She states she is breathing well using these and feels better. She reports being tired but denies any other problems. She states her Na was low and that she is to return for more lab work the beginning of next week. Copies to: RICHARD LYLES MD ; SEPTEMBERCHRISTELLE Aug 18, 2018 10:25
--- NOTE | 2018-08-25 12:08 | Transitional Care Management ---
Assessment Visit Type: Telephone Visit (08/25 [facility]) Cardiac: WNL Except Cardiac Comment: 05/25 denies recurrent chest pain since ER visit on 05/19 for a fib. denies racing heart or edema 06/01 Blood pressure has been high, Dr Lyles started her on Amalodpine 5mg QD. She checks her BP at home. 06/14 PB remains high. Saw Dr Lyles yesterday, he ordered lasix 40mg, but she dosn't think she should take that much. 06/26 stopped taking one of her new BP meds, she didn't remember the name to tell me which one. Stated it made her feel really sick so she didn't want to take it anymore. takes BP at home and said that "it's been fine". Last BP reading was yesterday and was 147/67 07/22 States BP daily is "up and down". Not taking lasix, has no pedal edema. Is SOB on phone and related lasix may remove fluid in her lung; states she will take it today and thereafter 08/25 Blood Pressure is still running high 180/ but denies ay chest pain Respiratory: WN Except Respiratory Comment: 05/25 reports is wearing O2 at 1L most of the time. took it off to go to mailbox for first time yesterday. little SOB or cough persist 06/01 1L, denies cough, but was getting a little SOB at the end of the conversation. 06/26 reported breathing is fine when she wears the O2, has been adjusting to wearing O2 all the time. Still takes it off for short periods of time and will see that her sats are in the 80's. encouraged her not to take her O2 off anymore. 07/22 IS SOB as above. Wearing O2 all the time. no flu sx 07/31 states she is fighting a cold but her breathing is good. She hasn't gotten her flu shot but wants one. Encouraged her to call MD's office to get her vaccine. 08/25 feeling better than she has for awhile. Wears O2 / but does take it off for very short periods. GI: Nutrition: WN GI Comment: 05/25 had increased appetite when taking prednisone. denies Diarrhea while on atb 07/22 states she is resricting fluid and NA was up to 131 yesterday Wt Gain/Loss: WNL Except Weight Comment: 06/14 States, "I'm a little swollen in my legs." 08/25 denies swelling to legs at this. Dr Lyles stopped the lasix for now as her Na+ is low. Constipation?: No Musculoskeletal, Exercise: WNL Except Musculoskeletal, Excercise Com: 05/25 still weak and tired but, gets up frequently and does a few things routinely 06/01 Gets tired with activity, I encouraged her to pace her activities throughout the day. 06/14 Left hip and back pain. 06/26 back pain is better 07/22 pain is better and more active, no PT ordered Mobility/Falls: WNL Except Mobility Comment: 06/14 Mobility is reduced by the hip and back pain. She stays in a chair most of the time. 07/22 was able to go shopping yesterday but is worn out today. Using cane 08/25 Needs to go out today to get labs drawn. Doing well around home Feeling of Well Being: WNL Except Feeling of Well Being Comment: 05/25 still tired. wants to be better when son comes at [place] 06/01 Concerned about her high blood pressure. 06/14 Feels as if she is getting worse by the day. 07/22 had good holidays with out of town family in to visit Pain/Management: WNL Except Pain/Management Comment: 05/25 denies 06/14 Left hip pain, x-rays done yesterday, she may begin PT in three weeks. 07/22 pain is better Scheduled Follow-Up with Provi: Yes (07/22 sees Vik next week) Following Discharge Instructio: No (06/14 Jolie not want to take lasix as prescribed. I educated her on lasix and encouraged her to take as prescribed.) TCM Discharge Criteria Medication Knowledge: 05/25 states she finished atb and prednsione and is just on routine meds 06/01 Was started on norvasc, but she did not know the name, she read it off the bottle. 06/14 Was started on lasix 40mg, does not think she needs it. After education, she says she may take 20 mg. 07/22 MD dc amlodipine and order 07/19 the lasix dose at 20mg. States she stopped the lasix for a week but agree to take it now that she knows may be making her SOB Disease Management/Concern/Wha: 05/25 s/s pneumonia, recurrent a fib Transitional Care Comment: 05/17 review CAP, cefdinir, azithromycin, prednsione 05/18 review need to rest drink fluids and last picker meds. only one day of zithromax and 3 day fo bid cefdinir with single dose prednisone for 9 days. states will make f/u with md tomorrow to eval need to cont. tx. 05/25 had ER visit on 05/19 after she had O2 turned off and dx with a fib with rate in 80's. denies recurrent s/s of pneumonia or a fib 05/19 She discharged yesterday, 24 hour phone call performed. We reviewed her discharge orders/medications, perscriptions have been filled. She sounds short of breath and says that her concentrator keeps alarming. I asked her to call [facility] as soon as we hung up to have them come check it out. She has O2 bottles availible if needed. I encouraged her to use a bottle until [facility] arrived. 05/20 [facility] responded quickly, and the problem was that she was turning the O2 adjustment to far and stopping the flow of oxygen. They reeducated her on the use of the concentrator. Later she began to have chest pain and went to the ER and was found to be in A-fib in a controlled rate. She discharged home and will call Tuesday to make an appt to see Dr Lyles. She states that her chest pain was "probably just nerves and anxiety". 06/01 She was started on norvasc, and will see Dr Lyles again on 06/13. She continues on 1l NC, denies sob or cough. She has had no further issues with her concentrator. 06/09 pt stated that she had a bad night and didn't sleep well. states she has a lot of pain on her left thigh and hip area. States she thinks she might have a kidney stone and was headed to urgent care since the doctor's office is closed. Instructed her to keep her appt with Dr Lyles on 06/13 but did not go over anything else as she was going to urgent care. 06/14 She did not go to urgent care, she saw Dr Lyles yesterday, lasix was ordered for her HTN, which she doesn't want to take, education provided, and we will follow up in a few days to see. Xrays were done of her hip and back, F/U in three weeks. 06/19 Svetlana states her back still hurts, she is taking tylenol for it. Educated her to make sure she does not exceed the recommended amount on the bottle and she said she was staying well under that. She states she is taking all of her medications as ordered, knows that they are important for her blood pressure. She said her breathing is good when she is home because she always wears her oxygen. She said she went to [facility] yesterday and did not have a portable tank and her sats were 80% when she got home. Asked her why she did not have a tank and she said she ran out and wasn't sure if she could get more. I called [facility] and they said they would take her more. Told her to wear her oxygen when she goes out once she gets the portable tanks. She denied any other problems and said she has a follow up with Dr Lyles on 07/04. 06/26 has follow up with Dr Lyles on 07/04. stopped taking one of her BP meds but unable to tell me which one. Still wearing O2 most of the time. Back pain better. see more detailed comments above 07/06 pt had appt with Dr Lyles two days ago, doing pretty well. Her Na is low so she has been restricting her fluids. pt says she is to get labs done again after the new year. No other questions or problems. pt requests another call after blood work is drawn at the beginning of the year. 07/22 agree to f/u phone call in a week or two. it was helpful to hear how the lasix may be helping her breathing and now she will take it (per MD order) 07/31 no reported complaints other than having a cold. She states things are going well and that she is taking all of her medications as prescribed. She wants the flu vaccine, encouraged her to call Dr Lyles's office for that 08/09 no answer, voicemail is full, unable to leave message 08/14 Svetlana is having trouble breathing and has a cough, she is worried that she has pneumonia again and has already made an appointment with Dr Lyles for tomorrow. She is taking her medications as she should be and has no other complaints. Will call again after Dr hebert 08/[address] Lyles, she does not have pneumonia but states she has the flu. She has been prescribed prednisone and is using inhalers. She states she is breathing well using these and feels better. She reports being tired but denies any other problems. She states her Na was low and that she is to return for more lab work the beginning of next week. 08/25 Na+ still remains low. Needs to go get labs done again today. She is feeling better the past few days than she has for awhile. Told her we would call her one more time to see how she is doing. Copies to: RICHARD LYLES MD ; SURENDRA REA Aug 25, 2018 12:08
--- NOTE | 2018-09-02 13:03 | Transitional Care Management ---
Assessment Visit Type: Telephone Visit Cardiac: WNL Except Cardiac Comment: 05/25 denies recurrent chest pain since ER visit on 05/19 for a fib. denies racing heart or edema 06/01 Blood pressure has been high, Dr Lyles started her on Amalodpine 5mg QD. She checks her BP at home. 06/14 PB remains high. Saw Dr Lyles yesterday, he ordered lasix 40mg, but she dosn't think she should take that much. 06/26 stopped taking one of her new BP meds, she didn't remember the name to tell me which one. Stated it made her feel really sick so she didn't want to take it anymore. takes BP at home and said that "it's been fine". Last BP reading was yesterday and was 147/67 07/22 States BP daily is "up and down". Not taking lasix, has no pedal edema. Is SOB on phone and related lasix may remove fluid in her lung; states she will take it today and thereafter 08/25 Blood Pressure is still running high 180/ but denies ay chest pain Respiratory: WNL Except Respiratory Comment: 05/25 reports is wearing O2 at 1L most of the time. took it off to go to mailbox for first time yesterday. little SOB or cough persist 06/01 1L, denies cough, but was getting a little SOB at the end of the conversation. 06/26 reported breathing is fine when she wears the O2, has been adjusting to wearing O2 all the time. Still takes it off for short periods of time and will see that her sats are in the 80's. encouraged her not to take her O2 off anymore. 07/22 IS SOB as above. Wearing O2 all the time. no flu sx 07/31 states she is fighting a cold but her breathing is good. She hasn't gotten her flu shot but wants one. Encouraged her to call MD's office to get her vaccine. 08/25 feeling better than she has for awhile. Wears O2 07/02 but does take it off for very short periods. GI: Nutrition: WNL GI Comment: 05/25 had increased appetite when taking prednisone. denies Diarrhea while on atb 07/22 states she is resricting fluid and NA was up to 131 yesterday Wt Gain/Loss: WNL Except Weight Comment: 06/14 States, "I'm a little swollen in my legs." 08/25 denies swelling to legs at this. Dr Lyles stopped the lasix for now as her Na+ is low. Constipation?: No Musculoskeletal, Exercise: WNL Except Musculoskeletal, Excercise Com: 05/25 still weak and tired but, gets up frequently and does a few things routinely 06/01 Gets tired with activity, I encouraged her to pace her activities throughout the day. 06/14 Left hip and back pain. 06/26 back pain is better 07/22 pain is better and more active, no PT ordered Mobility/Falls: WNL Except Mobility Comment: 06/14 Mobility is reduced by the hip and back pain. She stays in a chair most of the time. 07/22 was able to go shopping yesterday but is worn out today. Using cane 08/25 Needs to go out today to get labs drawn. Doing well around home Feeling of Well Being: WNL Except Feeling of Well Being Comment: 05/25 still tired. wants to be better when son comes at [place] 06/01 Concerned about her high blood pressure. 06/14 Feels as if she is getting worse by the day. 07/22 had good holidays with out of town family in to visit Pain/Management: WNL Except Pain/Management Comment: 05/25 denies 06/14 Left hip pain, x-rays done yesterday, she may begin PT in three weeks. 07/22 pain is better Scheduled Follow-Up with Provi: Yes (07/22 sees Vik next week) Following Discharge Instructio: No (06/14 Jolie not want to take lasix as prescribed. I educated her on lasix and encouraged her to take as prescribed.) TCM Discharge Criteria Medication Knowledge: 05/25 states she finished atb and prednsione and is just on routine meds 06/01 Was started on norvasc, but she did not know the name, she read it off the bottle. 06/14 Was started on lasix 40mg, does not think she needs it. After education, she says she may take 20 mg. 07/22 MD dc amlodipine and order 07/19 the lasix dose at 20mg. States she stopped the lasix for a week but agree to take it now that she knows may be making her SOB Disease Management/Concern/Wha: 05/25 s/s pneumonia, recurrent a fib Transitional Care Comment: 05/17 review CAP, cefdinir, azithromycin, prednsione 05/18 review need to rest drink fluids and tack picker meds. only one day of zithromax and 3 day fo bid cefdinir with single dose prednisone for 9 days. states will make f/u with md tomorrow to eval need to cont. tx. 05/25 had ER visit on 05/19 after she had O2 turned off and dx with a fib with rate in 80's. denies recurrent s/s of pneumonia or a fib 05/19 She discharged yesterday, 24 hour phone call performed. We reviewed her discharge orders/medications, perscriptions have been filled. She sounds short of breath and says that her concentrator keeps alarming. I asked her to call [facility] as soon as we hung up to have them come check it out. She has O2 bottles availible if needed. I encouraged her to use a bottle until [facility] arrived. 05/20 [facility] responded quickly, and the problem was that she was turning the O2 adjustment to far and stopping the flow of oxygen. They reeducated her on the use of the concentrator. Later she began to have chest pain and went to the ER and was found to be in A-fib in a controlled rate. She discharged home and will call Tuesday to make an appt to see Dr Lyles. She states that her chest pain was "probably just nerves and anxiety". 06/01 She was started on norvasc, and will see Dr Lyles again on 06/13. She continues on 1l NC, denies sob or cough. She has had no further issues with her concentrator. 06/09 pt stated that she had a bad night and didn't sleep well. states she has a lot of pain on her left thigh and hip area. States she thinks she might have a kidney stone and was headed to urgent care since the doctor's office is closed. Instructed her to keep her appt with Dr Lyles on 06/13 but did not go over anything else as she was going to urgent care. 06/14 She did not go to urgent care, she saw Dr Lyles yesterday, lasix was ordered for her HTN, which she doesn't want to take, education provided, and we will follow up in a few days to see. Xrays were done of her hip and back, F/U in three weeks. 06/19 Svetlana states her back still hurts, she is taking tylenol for it. Educated her to make sure she does not exceed the recommended amount on the bottle and she said she was staying well under that. She states she is taking all of her medications as ordered, knows that they are important for her blood pressure. She said her breathing is good when she is home because she always wears her oxygen. She said she went to [facility] yesterday and did not have a portable tank and her sats were 80% when she got home. Asked her why she did not have a tank and she said she ran out and wasn't sure if she could get more. I called [facility] and they said they would take her more. Told her to wear her oxygen when she goes out once she gets the portable tanks. She denied any other problems and said she has a follow up with Dr Lyles on 07/04. 06/[address] follow up with Dr Lyles on 07/04. stopped taking one of her BP meds but unable to tell me which one. Still wearing O2 most of the time. Back pain better. see more detailed comments above 07/06 pt had appt with Dr Lyles two days ago, doing pretty well. Her Na is low so she has been restricting her fluids. pt says she is to get labs done again after the new year. No other questions or problems. pt requests another call after blood work is drawn at the beginning of the year. 07/22 agree to f/u phone call in a week or two. it was helpful to hear how the lasix may be helping her breathing and now she will take it (per MD order) 07/31 no reported complaints other than having a cold. She states things are going well and that she is taking all of her medications as prescribed. She wants the flu vaccine, encouraged her to call Dr Lyles's office for that 08/09 no answer, voicemail is full, unable to leave message 08/14 Svetlana is having trouble breathing and has a cough, she is worried that she has pneumonia again and has already made an appointment with Dr Lyles for tomorrow. She is taking her medications as she should be and has no other complaints. Will call again after Dr hebert 08/[address] Lyles, she does not have pneumonia but states she has the flu. She has been prescribed prednisone and is using inhalers. She states she is breathing well using these and feels better. She reports being tired but denies any other problems. She states her Na was low and that she is to return for more lab work the beginning of next week. 08/25 Na+ still remains low. Needs to go get labs done again today. She is feeling better the past few days than she has for awhile. Told her we would call her one more time to see how she is doing. 09/02 pt has not checked her labs yet due to lack of transportation as her son usually takes her in but he has been sick. She states she will have a friend take her in for lab work on Tuesday. No other problems or questions. Will discharge from program. Copies to: RICHARD LYLES MD ; CHRISTELLE REYNAGA Sep 02, 2018 13:03
== END 2018-09-04 06:49 | disposition home or self-care (01) ==
LOC: TCM 08:09
PROVIDERS: ATTEND Nurse Practitioner
DX: Z02.9 Encounter for administrative examinations, unspecified (principal)

== ENCOUNTER → 2018-05-29 | Outpatient (CLI) | payer MEDICARE ==
[2017-11-15 12:41] VITALS: BMI 24.7
[~2018-05-29] MED LIST changes: +AMLO-111 PO; -AMLO-125 PO; +LOSA100T69 PO; -LOSA100T75 PO
--- NOTE | 2018-05-30 07:48 | EKG ---
FACILITY: [facility] - [place] PATIENT NAME: MILVIA LÓPEZ : [id number] MR: [id number] V: [id number] EXAM DATE: ORDERING PHYSICIAN: RICHARD LYLES TECHNOLOGIST: MICHAEL Test Reason : ARRHYTHMIA Blood Pressure : / mmHG Vent. Rate : 059 BPM Atrial Rate : 059 BPM P-R Int : 172 ms QRS Dur : 088 ms QT Int : 390 ms P-R-T Axes : 060 036 043 degrees QTc Int : 386 ms Sinus bradycardia with premature atrial complexes Otherwise normal ECG When compared with ECG of 19-MAY-2018 17:54, Previous ECG has undetermined rhythm, needs review Referred By: RAFAL Confirmed By:
== END ==
LOC: RESP 16:39
PROVIDERS: ATTEND Internal Medicine
DX: Z02.9 Encounter for administrative examinations, unspecified (principal)

== ENCOUNTER → 2018-06-13 | Outpatient (CLI) | payer MEDICARE ==
[2017-11-15 12:41] VITALS: BMI 24.7
[~2018-06-13] MED LIST changes: +AMLO-113 PO; +FURO-47 PO
--- NOTE | 2018-06-13 14:11 | RADIOLOGY IMAGING REPORT ---
FACILITY: [facility] - [place] PATIENT NAME: Svetlana Hall : 1935 MR: [id number] V: [id number] EXAM DATE: ORDERING PHYSICIAN: RICHARD LYLES TECHNOLOGIST: Location: [facility] - [place] Patient: Svetlana Hall : 1935 Visit/Account:[id number] Date of Sevice: 06/13/2018 LUMBAR SPINE 2 OR 3 VIEW Indication: low back pain Comparison: None. Findings: There is disc space narrowing and anterior osteophytes at all levels of the lumbar spine. There is multilevel facet arthropathy. Alignment is maintained. There is moderate curvature convex left. IMPRESSION: Moderate multilevel degenerative disc disease change and facet arthropathy. Report Dictated By: Hugo Marinelli at 06/13/2018 2:06 PM Report E-Signed By: Hugo Marinelli at 06/13/2018 2:08 PM WSN:[id number]
== END ==
LOC: RAD 13:04
PROVIDERS: ATTEND Internal Medicine
DX: M51.36 Other intervertebral disc degeneration, lumbar region (principal); I10 Essential (primary) hypertension
CPT/HCPCS: 72100; 81001

== ENCOUNTER → 2018-07-21 | Outpatient (CLI) | payer MEDICARE ==
[2017-11-15 12:41] VITALS: BMI 24.7
[~2018-07-21] MED LIST changes: +FLUT16SP19 NS; -LOSA100T69 PO; +LOSA100T75 PO
== END ==
LOC: LAB 14:19
PROVIDERS: ATTEND Internal Medicine
DX: E87.1 Hypo-osmolality and hyponatremia (principal)
CPT/HCPCS: 36415; 82310; 82374; 82435; 82565; 82947; 84132; 84295; 84520

== ENCOUNTER → 2018-08-15 | Outpatient (CLI) | payer MEDICARE ==
[2017-11-15 12:41] VITALS: BMI 24.7
[~2018-08-15] MED LIST changes: -AMLO-111 PO; -AMLO-113 PO; +AMLO-125 PO; +AMLO-127 PO
[2018-08-15 14:46] LABS: PLATELET COUNT, AUTOMATED 267 K/uL (150-450)
--- NOTE | 2018-08-15 15:24 | RADIOLOGY IMAGING REPORT ---
FACILITY: [facility] [place] PATIENT NAME: Svetlana Hall : 1935 MR: [id number] V: [id number] EXAM DATE: ORDERING PHYSICIAN: RICHARD LYLES TECHNOLOGIST: Location: [facility] [place] Patient: Svetlana Hall : 1935 Visit/Account:[id number] Date of Sevice: 08/15/2018 EXAMINATION: Chest 2 Views HISTORY: Dyspnea. Asthma exacerbation. COMPARISON: 05/19/2018. FINDINGS: The lungs are hyperinflated. Slight scarring or atelectasis at the lung bases. No new focal consolida tion. No pleural effusion or pneumothorax. Stable cardiomediastinal silhouette, with normal heart size and pulmonary vascularity. Aortic calcifi cation. No acute osseous findings. Scattered degenerative changes along the spine. IMPRESSION: 1. Hyperinflation. 2. Slight scarring or atelectasis at the lung bases. 3. No suspicious focal consolidation. Report Dictated By: Med Hurtado MD at 08/15/2018 3:18 PM Report E-Signed By: Med Hurtado MD at 08/15/2018 3:19 PM WSN:[id number]
== END ==
LOC: LAB 14:27
PROVIDERS: ATTEND Internal Medicine
DX: J98.11 Atelectasis (principal)
CPT/HCPCS: 36415; 71046; 81001; 82040; 82247; 82310; 82374; 82435; 82565; 82947; 83735; 83880; 84075; 84132; 84155; 84295; 84450; 84460; 84520; 85025

== ENCOUNTER → 2018-09-05 | Outpatient (CLI) | payer MEDICARE ==
[2017-11-15 12:41] VITALS: BMI 24.7
== END ==
LOC: LAB 15:08
PROVIDERS: ATTEND Internal Medicine
DX: E87.1 Hypo-osmolality and hyponatremia (principal); E83.42 Hypomagnesemia
CPT/HCPCS: 36415; 82310; 82374; 82435; 82565; 82947; 83735; 84132; 84295; 84520

== ENCOUNTER → 2018-09-20 | Outpatient (CLI) | payer MEDICARE ==
[2017-11-15 12:41] VITALS: BMI 24.7
[~2018-09-20] MED LIST changes: +ESCI5TAB3 PO
[2018-09-20 17:18] LABS: PLATELET COUNT, AUTOMATED 302 K/uL (150-450)
--- NOTE | 2018-09-21 14:57 | EKG ---
FACILITY: [facility] - [place] PATIENT NAME: MILVIA LÓPEZ : [id number] MR: [id number] V: [id number] EXAM DATE: ORDERING PHYSICIAN: RIHCARD LYLES TECHNOLOGIST: HENRIQUE Zacarias Reason : CHEST PAIN Blood Pressure : / mmHG Vent. Rate : 075 BPM Atrial Rate : 075 BPM P-R Int : 164 ms QRS Dur : 086 ms QT Int : 366 ms P-R-T Axes : 058 039 046 degrees QTc Int : 408 ms Normal sinus rhythm Normal ECG When compared with ECG of 29-MAY-2018 16:33, premature atrial complexes are no longer present Referred By: ALBERTO Confirmed By:
== END ==
LOC: LAB 16:46
PROVIDERS: ATTEND Internal Medicine
DX: E87.1 Hypo-osmolality and hyponatremia (principal); I10 Essential (primary) hypertension; J45.909 Unspecified asthma, uncomplicated
CPT/HCPCS: 36415; 82040; 82247; 82310; 82374; 82435; 82565; 82947; 83735; 84075; 84132; 84155; 84295; 84443; 84450; 84460; 84520; 85025

== ENCOUNTER 2018-10-01 18:35 | Observation (INO) | payer MEDICARE ==
[~2018-10-01] VITALS: Ht 152.4 cm; Wt 54.1 kg
--- NOTE | 2018-10-01 18:54 | ER Report ---
History and Physical Time Seen By MD: 18:54 HPI/ROS CHIEF COMPLAINT: Weakness, cough HISTORY OF PRESENT ILLNESS: 82-year-old female with a history of asthma, O2 dependent on 2.5 L, presents not feeling well. Patient was seen by her primary care Dr Chery approximately one week ago with feeling ill for one week. She has a history of hyponatremia. Diagnostic laboratories showed a sodium of 1:30. Patient notes that she's continued to deteriorate and feel much worse. She is extremely weak. She is afraid her sodium is low. She notes increased cough and mucus production from her sinuses and her lungs. She notes no fevers. She notes no leg swelling. She denies chest pain. Patient notes no appetite. She denies nausea or vomiting. She denies diarrhea, constipation. She denies dysuria. REVIEW OF SYSTEMS: Respiratory: As above Cardiovascular: No chest pain, no palpitations. Gastrointestinal: No vomiting, no abdominal pain. Musculoskeletal: No back pain. Allergies: Coded Allergies: montelukast (Verified Allergy, Mild, ITCHING AND RASH, 05/19/18) phenobarbital (Verified Allergy, Mild, RASH, 05/19/18) Home Meds Active Scripts Magnesium Oxide (MAGNESIUM OXIDE) 400 Mg Tablet, 400 MG PO BID, #180 TAB 1 Refill Prov:RICHARD CHERY MD 08/15/18 Metoprolol Succinate (METOPROLOL SUCCINATE) 100 Mg Tab.er.24h, 1 TAB PO QDAY, #90 TAB 3 Refills Prov:RICHARD CHERY MD 07/19/18 Fluticasone Prop 50 Mcg Ns (FLONASE 50 MCG NS) 16 Gm [place].susp, 2 SPRAYS NS QDAY, #1 BOT 1 Refill Prov:RICHARD CHERY MD 07/04/18 Furosemide (FUROSEMIDE) 20 Mg Tablet, 1 TAB PO QDAY, #90 TAB 3 Refills Prov:RICHARD CHERY MD 07/04/18 Sodium Chloride (SODIUM CHLORIDE) 1 Gm Tab, 0.5 GM PO BID, #30 TAB 6 Refills Prov:RICHARD CHERY MD 12/29/17 Clopidogrel Bisulfate (CLOPIDOGREL) 75 Mg Tablet, 1 TAB PO QDAY, #90 TAB 3 Refills Prov:RICHARD CHERY MD 12/19/17 Losartan Potassium (LOSARTAN POTASSIUM) 100 Mg Tablet, 100 MG PO QDAY, #90 TAB 3 Refills Prov:RICHARD CHERY MD 09/23/17 Ipratropium/Albuterol Sulfate (IPRAT-ALBUT 0.5-3(2.5) MG/3 ML) 3 Ml Ampul.neb, 3 ML IH QID PRN for SHORTNESS OF BREATH, #100 ML 6 Refills Prov:RICHARD CHERY MD 09/23/17 Nebulizer (Aeroneb Go Nebuliser) 1 Each Each, UNIT INH for asthma, #1 Prov:RICHARD CHERY MD 09/23/17 Reported Medications Fluticasone/Salmeterol (ADVAIR 250-50 DISKUS) 1 Each Disk.w.dev, 1 EACH IH BID 05/29/18 Omeprazole (OMEPRAZOLE) 20 Mg Capsule.dr, 1 CAP PO QDAY, CAP 09/29/17 Oxygen (Oxygen) 2 L Inha, 2.5 L INH 10/03/12 Discontinued Scripts Escitalopram Oxalate (ESCITALOPRAM OXALATE) 5 Mg Tablet, 5 MG PO QDAY, #30 TAB 3 Refills Prov:RICHARD CHERY MD 09/21/18 Albuterol Sulfate 90 Mcg/Act (PROAIR HFA 90 MCG/ACT) 8.5 Gm Hfa.aer.ad, 2 PUFF IH QID, #3 INHALER 3 Refills Prov:RICHARD CHERY MD 09/11/18 Prednisone (PREDNISONE) 20 Mg Tablet, 20 MG PO BID, #10 TAB Prov:RICHARD CHERY MD 08/15/18 Past Medical/Surgical History Past Medical History Cardiovascular: Reports hx of: hypertension Respiratory: Reports hx of: asthma (Chronic Obstructive Asthma) COPD (with RAD) Gastrointestinal: Reports hx of: GERD hiatal hernia Integumentary: Reports hx of: other integumentary hx Endocrine: Reports hx of: other endocrine history (SIADH; Hyponatremia) Hematology/oncology: Reprots hx of: other cancer history (fibrocystic breast disease) Infectious disease: Reports hx of: other infectious disease (shingles 04/2009) Past Surgical History HEENT: Reports hx of: tonsillectomy Gastrointestinal: Reports hx of: other GI surgery (colonoscopy) Gynecologic: Reports hx of: hysterectomy tubal ligation Reviewed Nurses Notes: Yes Old Medical Records Reviewed: Yes Hx Smoking: No Smoking Status: Never Smoker Exposure to Second Hand Smoke?: Yes Hx Substance Use Disorder: No Hx Alcohol Use: Yes Constitutional Vital Sign - Last 24 Hours 10/01/18 10/01/18 10/01/18 10/01/18 18:58 18:58 19:02 19:05 Temp 97.9 Pulse 107 86 Resp 22 18 B/P (MAP) 213/129 213/129 (157) 215/110 (145) Pulse Ox 93 95 O2 Delivery Nasal Cannula 10/01/18 10/01/18 10/01/18 10/01/18 19:15 19:35 20:00 20:05 Pulse 84 82 74 Resp 16 19 22 B/P (MAP) 173/76 (108) Pulse Ox 94 96 10/01/18 10/01/18 10/01/18 10/01/18 20:10 20:30 20:40 21:00 Pulse 74 78 Resp 21 22 B/P (MAP) 193/94 (127) 163/77 (105) Pulse Ox 97 96 10/01/18 10/01/18 10/01/18 10/01/18 21:05 21:30 21:35 22:00 Pulse 75 83 Resp 21 29 B/P (MAP) 180/77 (111) 157/67 (97) Pulse Ox 95 95 10/01/18 10/02/18 10/02/18 10/02/18 23:30 00:00 00:35 01:05 Pulse 79 75 77 84 Resp 25 26 26 15 B/P (MAP) 176/83 (114) Pulse Ox 75 87 91 93 10/02/18 10/02/18 10/02/18 10/02/18 01:35 02:30 03:00 03:30 Pulse 66 59 67 61 Resp 39 17 20 15 Pulse Ox 97 92 96 95 10/02/18 10/02/18 10/02/18 10/02/18 03:35 03:50 04:05 04:20 Pulse 61 62 60 57 Resp 17 17 16 15 Pulse Ox 96 94 94 95 10/02/18 10/02/18 10/02/18 10/02/18 04:35 04:50 05:05 05:10 Pulse 57 58 ??? 80 Resp 15 16 70 24 Pulse Ox 95 96 94 92 310/02/18 10/02/18 10/02/18 05:11 05:20 05:27 05:27 Pulse 74 69 Resp 24 20 B/P (MAP) 166/78 (107) Pulse Ox 94 93 O2 Delivery Nasal Cannula O2 Flow Rate 3.0 10/02/18 05:30 Pulse 69 Resp 22 Pulse Ox 97 Intake and Output 10/01/18 10/01/18 10/02/18 14:59 22:59 06:59 Intake Total 1000 ml Balance 1000 ml Physical Exam Vital signs stable, blood pressure grossly elevated to 213/129, pulse ox adequate baseline on 2.5 L General Appearance: The patient is alert, has no immediate need for airway protection. Tired. Ill but not toxic appearing, slightly pale appearing, skin warm and dry HEENT: Pupils equal and round no injection. TMs normal, oropharynx with dry mucous membranes, mild erythema Respiratory: Chest is non tender, bilateral expiratory wheezing Cardiac: regular rate and rhythm Gastrointestinal: Abdomen is soft and non tender, no masses, bowel sounds normal. Musculoskeletal: Neck: Neck is supple and non tender. No lymphadenopathy, no JVD Extremities have full range of motion and are non tender. 1+ doughy edema bilaterally Skin: No rashes or lesions. DIFFERENTIAL DIAGNOSIS: After history and physical exam differential diagnosis was considered for shortness of breath including but not limited to pulmonary infectious process, COPD, asthma, pulmonary embolus and congestive heart failure. Additionally,weakness including but not limited to electrolyte abnormality, depression, anxiety, CVA, spinal cord abnormality, and infectious causes. Medical Decision Making Data Points Result Diagram: 10/01/18192110/01/181921 Laboratory Hematology Test 10/01/18 19:05 10/01/18 19:22 10/01/18 21:50 Influenza Virus Type A (PCR) Negative (NEGATIVE) Influenza Virus Type B (PCR) Negative (NEGATIVE) Red Blood Count 3.75 M/uL (4.17-5.56) Mean Corpuscular Volume 87.6 fL (80.0-96.0) Mean Corpuscular Hemoglobin 30.5 pg (26.0-33.0) Mean Corpuscular Hemoglobin Concent 34.8 g/dL (32.0-36.0) Red Cell Distribution Width 13.1 % (11.5-14.5) Mean Platelet Volume 7.8 fL (7.2-11.1) Neutrophils (%) (Auto) 59.9 % (39.4-72.5) Lymphocytes (%) (Auto) 19.6 % (17.6-49.6) Monocytes (%) (Auto) 12.5 % (4.1-12.4) Eosinophils (%) (Auto) 6.8 % (0.4-6.7) Basophils (%) (Auto) 1.2 % (0.3-1.4) Nucleated RBC Relative Count (auto) 0.0 /100WBC Neutrophils # (Auto) 4.3 K/uL (2.0-7.4) Lymphocytes # (Auto) 1.4 K/uL (1.3-3.6) Monocytes # (Auto) 0.9 K/uL (0.3-1.0) Eosinophils # (Auto) 0.5 K/uL (0.0-0.5) Basophils # (Auto) 0.1 K/uL (0.0-0.1) Nucleated RBC Absolute Count (auto) 0.00 K/uL Lactate 0.9 mmol/L (0.7-2.1) Total Bilirubin 0.4 mg/dl (0.2-1.3) Aspartate Amino Transf (AST/SGOT) 29 U/L (0-35) Alanine Aminotransferase (ALT/SGPT) 28 U/L (0-56) Alkaline Phosphatase 69 U/L (0-126) Troponin I < 0.012 ng/ml B-Type Natriuretic Peptide 77 pg/ml (0-100) Total Protein 6.9 g/dl (6.3-8.2) Albumin 4.3 g/dl (3.5-5.0) Urine Color Yellow Urine Clarity Clear Urine pH 7.0 pH (4.8-9.5) Urine Specific [place] 1.012 Urine Protein Negative mg/dL (NEGATIVE) Urine Glucose (UA) Negative mg/dL (NEGATIVE) Urine Ketones Trace mg/dL (NEGATIVE) Urine Blood Negative (NEGATIVE) Urine Nitrite Negative (NEGATIVE) Urine Bilirubin Negative (NEGATIVE) Urine Urobilinogen Negative mg/dL (0.2-1.9) Urine Leukocyte Esterase Large (NEGATIVE) Urine RBC 2 /HPF (0-2/HPF) Urine WBC 2 /HPF (0-5/HPF) Urine Squamous Epithelial Cells Many /LPF (</=FEW) Urine Bacteria Few /HPF (NONE-FEW) Urine Mucus None /HPF (NONE-FEW) Chemistry Test 10/01/18 19:05 10/01/18 19:22 10/01/18 21:50 Influenza Virus Type A (PCR) Negative (NEGATIVE) Influenza Virus Type B (PCR) Negative (NEGATIVE) White Blood Count 7.3 k/uL (4.5-11.0) Red Blood Count 3.75 M/uL (4.17-5.56) Hemoglobin 11.4 g/dL (12.0-16.0) Hematocrit 32.8 % (34.0-47.0) Mean Corpuscular Volume 87.6 fL (80.0-96.0) Mean Corpuscular Hemoglobin 30.5 pg (26.0-33.0) Mean Corpuscular Hemoglobin Concent 34.8 g/dL (32.0-36.0) Red Cell Distribution Width 13.1 % (11.5-14.5) Platelet Count 249 K/uL (150-450) Mean Platelet Volume 7.8 fL (7.2-11.1) Neutrophils (%) (Auto) 59.9 % (39.4-72.5) Lymphocytes (%) (Auto) 19.6 % (17.6-49.6) Monocytes (%) (Auto) 12.5 % (4.1-12.4) Eosinophils (%) (Auto) 6.8 % (0.4-6.7) Basophils (%) (Auto) 1.2 % (0.3-1.4) Nucleated RBC Relative Count (auto) 0.0 /100WBC Neutrophils # (Auto) 4.3 K/uL (2.0-7.4) Lymphocytes # (Auto) 1.4 K/uL (1.3-3.6) Monocytes # (Auto) 0.9 K/uL (0.3-1.0) Eosinophils # (Auto) 0.5 K/uL (0.0-0.5) Basophils # (Auto) 0.1 K/uL (0.0-0.1) Nucleated RBC Absolute Count (auto) 0.00 K/uL Lactate 0.9 mmol/L (0.7-2.1) Total Bilirubin 0.4 mg/dl (0.2-1.3) Aspartate Amino Transf (AST/SGOT) 29 U/L (0-35) Alanine Aminotransferase (ALT/SGPT) 28 U/L (0-56) Alkaline Phosphatase 69 U/L (0-126) Troponin I < 0.012 ng/ml B-Type Natriuretic Peptide 77 pg/ml (0-100) Total Protein 6.9 g/dl (6.3-8.2) Albumin 4.3 g/dl (3.5-5.0) Urine Color Yellow Urine Clarity Clear Urine pH 7.0 pH (4.8-9.5) Urine Specific [place] 1.012 Urine Protein Negative mg/dL (NEGATIVE) Urine Glucose (UA) Negative mg/dL (NEGATIVE) Urine Ketones Trace mg/dL (NEGATIVE) Urine Blood Negative (NEGATIVE) Urine Nitrite Negative (NEGATIVE) Urine Bilirubin Negative (NEGATIVE) Urine Urobilinogen Negative mg/dL (0.2-1.9) Urine Leukocyte Esterase Large (NEGATIVE) Urine RBC 2 /HPF (0-2/HPF) Urine WBC 2 /HPF (0-5/HPF) Urine Squamous Epithelial Cells Many /LPF (</=FEW) Urine Bacteria Few /HPF (NONE-FEW) Urine Mucus None /HPF (NONE-FEW) Urinalysis Test 10/01/18 21:50 Urine Color Yellow Urine Clarity Clear Urine pH 7.0 pH (4.8-9.5) Urine Specific [place] 1.012 Urine Protein Negative mg/dL (NEGATIVE) Urine Glucose (UA) Negative mg/dL (NEGATIVE) Urine Ketones Trace mg/dL (NEGATIVE) Urine Blood Negative (NEGATIVE) Urine Nitrite Negative (NEGATIVE) Urine Bilirubin Negative (NEGATIVE) Urine Urobilinogen Negative mg/dL (0.2-1.9) Urine Leukocyte Esterase Large (NEGATIVE) Urine RBC 2 /HPF (0-2/HPF) Urine WBC 2 /HPF (0-5/HPF) Urine Squamous Epithelial Cells Many /LPF (</=FEW) Urine Bacteria Few /HPF (NONE-FEW) Urine Mucus None /HPF (NONE-FEW) EKG/Imaging EKG Interpretation 12 lead EK Rhythm: normal sinus rhythm [place]: normal QRS: normal ST segments: normal, comparison to previous EKG dated 09/20/18, no significant change Imaging X-ray: Two-view chest x-ray was obtained. I viewed the images myself on the PACS system. My interpretation of the images is: No infiltrate, no effusion, normal mediastinum., Comparison to previous chest x-ray dated 07/15/19, no significant change. The radiologist interpretation had no clinically significa nt variation from this interpretation. ED Course/Re-evaluation Clinical Indication for ER IV: Hydration, IV Access ED Course Patient was admitted to an examination room. H&P was done. The differential diagnoses was considered. Patient planing of increasing fatigue and shortness of breath. Patient notes more productivity of her sputum. It is ran primarily clear. She denies fevers. She was seen one week ago by primary care. Sodium is 129 and repeat today it is 122. 10/01/2018 8:51:[address] Esteban Hurt still hospitalist who accepts the patient for admission for treatment of low sodium weakness and COPD exacerbation. Decision to Disposition Date: Oct 01, 2018 Decision to Disposition Time: 19:56 Depart Departure Latest Vital Signs Vital Signs Date Time Temp Pulse Resp B/P (MAP) Pulse Ox O2 Delivery O2 Flow Rate FiO2 10/02/18 05:30 69 22 97 10/02/18 05:27 Nasal Cannula 3.0 10/02/18 05:11 166/78 (107) 10/01/18 18:58 97.9 Impression: Primary Impression: Weakness generalized Additional Impressions: Hyponatremia COPD exacerbation Condition: Improved Disposition: Admitted from ER Referrals: RICHARD CHERY MD (PCP) Problem Qualifiers DAVID BYERS DO Oct 01, 2018 18:54
[2018-10-01] MEDS ORDERED: NS(*) 0.9% 1000 ML BAG 1,000 ML IV ONE (18:59)
[2018-10-01] MEDS ORDERED: ALBUTEROL/IPRATROPIUM 3 ML NEB NEB ONE (19:00)
[2018-10-01 19:31] LABS: PLATELET COUNT, AUTOMATED 249 K/uL (150-450)
--- NOTE | 2018-10-01 19:49 | EKG ---
FACILITY: [facility] - [place] PATIENT NAME: MILVIA LÓPEZ : [id number] MR: [id number] V: [id number] EXAM DATE: ORDERING PHYSICIAN: DAVID BYERS TECHNOLOGIST: RODRIGO Test Reason : weakness Blood Pressure : / mmHG Vent. Rate : 083 BPM Atrial Rate : 083 BPM P-R Int : 140 ms QRS Dur : 088 ms QT Int : 342 ms P-R-T Axes : 034 032 038 degrees QTc Int : 401 ms Normal sinus rhythm Normal ECG Confirmed by Esteban Gore ([id number]) on 10/02/2018 12:27:41 AM Referred By: ZEESHAN Confirmed By:Esteban Hernandez
--- NOTE | 2018-10-01 20:46 | RADIOLOGY IMAGING REPORT ---
FACILITY: [facility] PATIENT NAME: Svetlana Hall : 1935 MR: [id number] V: [id number] EXAM DATE: ORDERING PHYSICIAN: DAVID BYERS TECHNOLOGIST: Location: [facility] Patient: Svetlana Hall : 1935 Visit/Account:[id number] Date of Sevice: 10/01/2018 2 VIEWS CHEST INDICATION: Cough for two weeks COMPARISON: 08/15/2018. FINDINGS: Cardiomediastinal silhouette and pulmonary vessels within normal limits. There is no focal infiltrate or lobar consolidation. There is no pneumothorax or pleural effusion. Tiny stable nodule in the right midlung. No other nodules. Upper abdomen is unremarkable. No acute bony abnormality. IMPRESSION: 1. No acute cardiopulmonary process. Report Dictated By: Marcel Hernandez at 10/01/2018 8:40 PM Report E-Signed By: Marcel Hernandez at 10/01/2018 8:43 PM WSN:[id number]
[2018-10-02] MEDS ORDERED: GUAIFENESIN/DEXTROMETHORPHAN 5 ML PO ONE (00:30)
[2018-10-02] MEDS ORDERED: NS(*) 0.9% 1000 ML BAG 1,000 ML IV ONE (05:05)
[2018-10-02] MEDS ORDERED: methylPREDNIS SUCC 125 MG/2ML IVP ONE (05:05)
[2018-10-02] MEDS ORDERED: ALBUTEROL/IPRATROPIUM 3 ML NEB NEB ONE (05:20)
[2018-10-02 06:30] VITALS: BP 173/94
[2018-10-02] MEDS ORDERED: ACETAMINOPHEN 325 MG TAB PO PRN (06:40)
[2018-10-02] MEDS ORDERED: INFLUENZA VIRUS VAC 0.5ML SYR IM ONLY ONE (06:40)
[2018-10-02] MEDS ORDERED: FLUSH 10 ML SYR IVP PRN (06:40)
[2018-10-02] MEDS ORDERED: ALBUTEROL 2.5 MG/3 ML NEB NEB PRN (06:40)
[2018-10-02] MEDS: METOPROLOL SUCC XL 50 MG TABCR 50 MG TAB.ER.24H PO SCH (08:20)
[2018-10-02] MEDS: PANTOPRAZOLE SOD 40 MG TABEC PO SCH (08:20)
[2018-10-02] MEDS: LOSARTAN POTASSIUM 50 MG TAB PO SCH (08:20)
[2018-10-02] MEDS: CLOPIDOGREL BISULFATE 75MG TAB PO SCH (08:20)
[2018-10-02] MEDS: ENOXAPARIN 40 MG/0.4ML SYR SC SCH (08:21)
[2018-10-02] MEDS: SODIUM CHLORIDE 1 GR TAB PO SCH ×2 (08:21→20:40)
[2018-10-02] MEDS: predniSONE 20 MG TAB PO SCH (08:51)
--- NOTE | 2018-10-02 08:53 | NUR ---
Physical Therapy Impression PT/OT co garret complete. Pt completed transfers from bed and chair with SBA and use of RW. Ambulation x100' with RW and SBA. Pt is at/near baseline level of functional mobility and would benefit from [facility] to increase strength and endurance upon d/c home. No further PT visits planned during inpatient stay. Physical Therapy Goals Patient's Goals
[2018-10-02 08:55] VITALS: Ht 152.4 cm; Wt 54.1 kg
--- NOTE | 2018-10-02 09:33 | History & Physical ---
History of Present Illness Chief Complaint cough, weakness History of Present Illness 82F presented with increased cough, dyspnea, fatigue. PMHx significant for COPD, SIADH, HTN. Reports progressive worsening over last 1 week. Denies fever but re ports increased cough, dyspnea. Labs show her sodium is lower than usual for her. History Problems: (1) Hyponatremia Status: Chronic (2) SIADH (syndrome of inappropriate ADH production) Status: Chronic (3) Dyspnea and respiratory abnormalities Home Meds Active Scripts Magnesium Oxide (MAGNESIUM OXIDE) 400 Mg Tablet, 400 MG PO BID, #180 TAB 1 Refill Prov:RICHARD LYLES MD 08/15/18 Metoprolol Succinate (METOPROLOL SUCCINATE) 100 Mg Tab.er.24h, 1 TAB PO QDAY, #90 TAB 3 Refills Prov:RICHARD LYLES MD 07/19/18 Fluticasone Prop 50 Mcg Ns (FLONASE 50 MCG NS) 16 Gm [place].susp, 2 SPRAYS NS QDAY, #1 BOT 1 Refill Prov:RICHARD LYLES MD 07/04/18 Furosemide (FUROSEMIDE) 20 Mg Tablet, 1 TAB PO QDAY, #90 TAB 3 Refills Prov:RICHARD LYLES MD 07/04/18 Sodium Chloride (SODIUM CHLORIDE) 1 Gm Tab, 0.5 GM PO BID, #30 TAB 6 Refills Prov:RICHARD LYLES MD 12/29/17 Clopidogrel Bisulfate (CLOPIDOGREL) 75 Mg Tablet, 1 TAB PO QDAY, #90 TAB 3 Refills Prov:RICHARD LYLES MD 12/19/17 Losartan Potassium (LOSARTAN POTASSIUM) 100 Mg Tablet, 100 MG PO QDAY, #90 TAB 3 Refills Prov:RICHARD LYLES MD 09/23/17 Ipratropium/Albuterol Sulfate (IPRAT-ALBUT 0.5-3(2.5) MG/3 ML) 3 Ml Ampul.neb, 3 ML IH QID PRN for SHORTNESS OF BREATH, #100 ML 6 Refills Prov:RICHARD LYLES MD 09/23/17 Nebulizer (Aeroneb Go Nebuliser) 1 Each Each, UNIT INH for asthma, #1 Prov:RICHARD LYLES MD 09/23/17 Reported Medications Fluticasone/Salmeterol (ADVAIR 250-50 DISKUS) 1 Each Disk.w.dev, 1 EACH IH BID 05/29/18 Omeprazole (OMEPRAZOLE) 20 Mg Capsule.dr, 1 CAP PO QDAY, CAP 09/29/17 Oxygen (Oxygen) 2 L Inha, 2.5 L INH 10/03/12 Discontinued Scripts Escitalopram Oxalate (ESCITALOPRAM OXALATE) 5 Mg Tablet, 5 MG PO QDAY, #30 TAB 3 Refills Prov:RICHARD LYLES MD 09/21/18 Albuterol Sulfate 90 Mcg/Act (PROAIR HFA 90 MCG/ACT) 8.5 Gm Hfa.aer.ad, 2 PUFF IH QID, #3 INHALER 3 Refills Prov:RICHARD LYLES MD 09/11/18 Prednisone (PREDNISONE) 20 Mg Tablet, 20 MG PO BID, #10 TAB Prov:RICHARD LYLES MD 08/15/18 Allergies: Coded Allergies: montelukast (Verified Allergy, Mild, ITCHING AND RASH, 05/19/18) phenobarbital (Verified Allergy, Mild, RASH, 05/19/18) Patient History: Blood clots FATHER, Cervical cancer CHILD, , Age:59 Diabetes mellitus CHILD CHILD FH: breast cancer siblings x 8 ( sister ) FH: heart attack FATHER, MOTHER, siblings x 8 (Brother) No pertinent family history CHILD CHILD Hx Smoking: No Smoking Status: Never Smoker Exposure to Second Hand Smoke?: Yes Caffeine Intake: Coffee, Soda Caffeine/Cups Per Day: 1C/day Hx Alcohol Use: Yes Hx Substance Use Disorder: No Social Drug Use: Never Review of Systems All Systems Reviewed/Normal: Yes, Except as Noted Respiratory: Shortness of Breath, Cough, Wheezing Exam Vital Signs Vital Signs Date Time Temp Pulse Resp B/P (MAP) Pulse Ox O2 Delivery O2 Flow Rate FiO2 10/02/18 07:18 91 Nasal Cannula 3.0 10/02/18 06:30 98.1 92 20 173/94 (120) General Appearance: Alert, Awake, No Acute Distress, Afebrile Neuro: No Gross deficits ENT: Normal Cardiovascular: Normal Rhythm & Peripheral Pulses Respiratory: Other (expiratory wheeze, cough) GI: Abd Soft and Non-Tender Extremities: Soft and Non Tender, Warm, Pulses, Perfused Medical Decision Making Data Points Result Diagram: 10/01/18192110/02/1849 EKG / Imaging EKG Interpretation NSR Assessment and Plan Problems: (1) Acute on chronic respiratory failure with hypoxia Assessment & Plan: CXR no acute pathology, she does have increased dyspnea, O2 needs. Begin prednisone and breathing treatments. Trial flutter therapy to loosen secretions. (2) SIADH (syndrome of inappropriate ADH production) Status: Chronic Assessment & Plan: Sodium usually in 129 range and controlled with fluid restriction and salt tabs. Will monitor after receiving some IV fluid in ER. Sodium slowly increasing. (3) COPD exacerbation Status: Acute Assessment & Plan: Likely viral precipitant. (4) Hyponatremia Status: Chronic Assessment & Plan: Chronic, asymptomatic. Will monitor, limit fluid intake, continue salt tab. Venous Thromboembolism Antithrombotics Is Pt On Any Antithrombotics?: Yes Exam Sepsis Risk: No Definite Risk RAJINDER YOO DO Oct 02, 2018 09:33
--- NOTE | 2018-10-02 11:13 | NUR ---
PHYSICAL THERAPY INFORMATION TRANSFER SHEET BED MOBILITY: TRANSFERS: Standby Assistance GAIT: 100 ' with O2 RW and Standby Assistance Weightbearing Status: STAIRS: with . EXERCISES: Verbalizes Needs: Yes Understands Directions Yes Cooperative: Yes Family Teaching: No Physical Therapy Comment:
[2018-10-02] MEDS: ALBUTEROL/IPRATROPIUM 3 ML NEB NEB SCH ×3 (11:20→23:52)
--- NOTE | 2018-10-02 13:11 | NUR ---
Occupational Therapy Impression SBA ambulation x100ft with RW. Pt then seated up at EOB for breakfast. Declined further ADLs. Rec services upon discharge for continued strengthening. Occupational Therapy Goals 1) Pt will be Independent UB/LB dressing. 2) Pt will be Independent grooming/hygiene. 3) Pt will be Mod (I) toilet task. Patient's Goal
[2018-10-02 15:02] VITALS: BP 135/65
[2018-10-02] MEDS ORDERED: DOXYCYCLINE HYCL 100 MG TAB PO ONE (15:15)
[2018-10-02] MEDS: DOXYCYCLINE HYCL 100 MG VIAL 100 MG in NS(*) 0.9% 250 ML BAG 250 ML IV SCH (15:57)
[2018-10-02] MEDS: SALMETEROL/FLUTIC 250/50 1 INH INH SCH (17:06)
[2018-10-02 19:57] VITALS: BP 175/95
[2018-10-02] MEDS ORDERED: DOXYCYCLINE HYCL 100 MG TAB PO SCH (21:00)
[2018-10-03 00:15] VITALS: BP 149/83
[2018-10-03] MEDS: DOXYCYCLINE HYCL 100 MG VIAL 100 MG in NS(*) 0.9% 250 ML BAG 250 ML IV SCH ×2 (03:59→15:59)
[2018-10-03 04:38] VITALS: BP 149/79
[2018-10-03] MEDS: ALBUTEROL/IPRATROPIUM 3 ML NEB NEB SCH ×3 (05:13→17:42)
[2018-10-03] MEDS: SALMETEROL/FLUTIC 250/50 1 INH INH SCH ×2 (05:13→17:42)
[2018-10-03 06:00] LABS: PLATELET COUNT, AUTOMATED 211 K/uL (150-450)
[2018-10-03 07:11] VITALS: BP 150/76
[2018-10-03] MEDS: LOSARTAN POTASSIUM 50 MG TAB PO SCH (08:37)
[2018-10-03] MEDS: CLOPIDOGREL BISULFATE 75MG TAB PO SCH (08:38)
[2018-10-03] MEDS: SODIUM CHLORIDE 1 GR TAB PO SCH ×2 (08:39→20:56)
[2018-10-03] MEDS: METOPROLOL SUCC XL 50 MG TABCR 50 MG TAB.ER.24H PO SCH (08:39)
[2018-10-03] MEDS: predniSONE 20 MG TAB PO SCH (08:39)
[2018-10-03] MEDS: PANTOPRAZOLE SOD 40 MG TABEC PO SCH (08:39)
[2018-10-03] MEDS: ENOXAPARIN 40 MG/0.4ML SYR SC SCH (08:40)
--- NOTE | 2018-10-03 13:54 | Hospitalist Progress Note ---
Subjective Progress Notes Subjective 82F admitted for COPD exacerbation. [place] overnight, breathing improved. Na remains low, likely will be ok for d/c tomorrow. Patient Complains of: Neurological: No: Syncope, Confusion, Weakness Respiratory: Cough Gastrointestinal: No Nausea, No Vomiting Physical Exam Vital Signs Date Time Temp Pulse Resp B/P (MAP) Pulse Ox O2 Delivery O2 Flow Rate FiO2 10/03/18 11:44 77 20 10/03/18 11:36 90 Nasal Cannula 1.0 10/03/18 07:11 97.7 150/76 (100) Intake and Output 10/03/18 07:00 Intake Total 1490 ml Balance 1490 ml Intake Oral 1240 ml IV Total 250 ml # Voids 6 General Appearance: Alert, Awake, No Acute Distress, Afebrile Neuro: No Gross deficits ENT: Normal Cardiovascular: Normal Rhythm & Peripheral Pulses Respiratory: No Respiratory Distress (+ wheezing) GI: Soft and Non-Tender Extremities: Soft and Non Tender, Warm, Pulses, Perfused Result Diagram: 10/03/1852510/03/18525 Assessment and Plan Problems: (1) Acute on chronic respiratory failure with hypoxia Assessment & Plan: CXR no acute pathology, she does have increased dyspnea, O2 needs. On prednisone, doxycycline and breathing treatments. Flutter therapy to loosen secretions. (2) SIADH (syndrome of inappropriate ADH production) Status: Chronic Assessment & Plan: Sodium usually in 129 range and controlled with fluid restriction and salt tabs. Will monitor after receiving some IV fluid in ER. Sodium slowly increasing. (3) COPD exacerbation Status: Acute Assessment & Plan: Likely viral precipitant. (4) Hyponatremia Status: Chronic Assessment & Plan: Chronic, asymptomatic. Will monitor, limit fluid intake, continue salt tab. Exam Sepsis Risk: No Definite Risk RAJINDER YOO DO Oct 03, 2018 13:54
--- NOTE | 2018-10-03 15:14 | NUR ---
Occupational Therapy Impression Independent bed mobility in/out. Mod (I) ambulation x90ft with RW. SpO2 WNL on 1L. Independent LB dressing. Pt declined further ADLs.Pt demonstrates good strength and endurance for independent engagement in ADLs/IADLs. OT goals met. Pt reports no further questions/concerns for discharge home when medically appropriate. Discharged skilled OT services. Occupational Therapy Goals 1) Pt will be Independent UB/LB dressing. 2) Pt will be Independent grooming/hygiene. 3) Pt will be Mod (I) toilet task. Patient's Goal
[2018-10-03 15:59] VITALS: BP 176/81
[2018-10-03] MEDS ORDERED: FLUT16SP19 NS (16:18)
[2018-10-03] MEDS ORDERED: MAGN400T23 PO (16:19)
[2018-10-03] MEDS ORDERED: ALBU8.5H IH (16:20)
[2018-10-03] MEDS ORDERED: AMLO-127 PO (16:20)
[2018-10-03] MEDS ORDERED: ESCI10TA8 PO (16:24)
[2018-10-03 19:45] VITALS: BP 167/87
[2018-10-04] MEDS: ALBUTEROL/IPRATROPIUM 3 ML NEB NEB SCH ×3 (00:28→11:16)
[2018-10-04 01:03] VITALS: BP 166/85
[2018-10-04] MEDS: DOXYCYCLINE HYCL 100 MG VIAL 100 MG in NS(*) 0.9% 250 ML BAG 250 ML IV SCH (03:54)
[2018-10-04] MEDS: SALMETEROL/FLUTIC 250/50 1 INH INH SCH (05:48)
[2018-10-04 07:23] VITALS: BP 153/117
[2018-10-04 07:37] VITALS: BP 161/90
[2018-10-04] MEDS: SODIUM CHLORIDE 1 GR TAB PO SCH (08:32)
[2018-10-04] MEDS: PANTOPRAZOLE SOD 40 MG TABEC PO SCH (08:32)
[2018-10-04] MEDS: CLOPIDOGREL BISULFATE 75MG TAB PO SCH (08:32)
[2018-10-04] MEDS: LOSARTAN POTASSIUM 50 MG TAB PO SCH (08:32)
[2018-10-04] MEDS: METOPROLOL SUCC XL 50 MG TABCR 50 MG TAB.ER.24H PO SCH (08:32)
[2018-10-04] MEDS: predniSONE 20 MG TAB PO SCH (08:32)
[2018-10-04] MEDS: ENOXAPARIN 40 MG/0.4ML SYR SC SCH (08:33)
[2018-10-04] MEDS ORDERED: DOXY-179 PO (09:59)
[2018-10-04] MEDS ORDERED: SODCTAB PO (09:59)
[2018-10-04] MEDS ORDERED: PRED-1 PO (09:59)
--- NOTE | 2018-10-04 10:05 | Hospitalist Depart ---
Discharge Summary Reason for Hosp/Final Diag: (1) Acute on chronic respiratory failure with hypoxia Hospital Course & Plan: She presented with increased shortness of breath. Her chest x-ray was negative for pneumonia. She quickly responded to treatment with nebulizers and steroids. She is now at her baseline oxygen requirement. She will discharge on a short course of doxycycline and a prednisone taper. (2) COPD exacerbation Status: Acute Hospital Course & Plan: Likely viral precipitant. (3) SIADH (syndrome of inappropriate ADH production) Status: Chronic Hospital Course & Plan: She is on chronic sodium replacement, but her levels were lower than usual on admission. We increased her sodium dose to 1gm twice daily. 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 Prov:WENCESLAO CHAVIS DO 10/04/18 Doxycycline Hyclate (DOXYCYCLINE HYCLATE) 100 Mg Tablet, 100 MG PO BID, #10 TAB Prov:WENCESLAO CHAVIS DO 10/04/18 Sodium Chloride (SODIUM CHLORIDE) 1 Gm Tab, 1 GM PO BID, #60 TAB Prov:WENCESLAO CHAVIS DO 10/04/18 Metoprolol Succinate (METOPROLOL SUCCINATE) 100 Mg Tab.er.24h, 1 TAB PO QDAY, #90 TAB 3 Refills Prov:RICHARD CHERY MD 07/19/18 Furosemide (FUROSEMIDE) 20 Mg Tablet, 1 TAB PO QDAY, #90 TAB 3 Refills Prov:RICHARD CHERY MD 07/04/18 Clopidogrel Bisulfate (CLOPIDOGREL) 75 Mg Tablet, 1 TAB PO QDAY, #90 TAB 3 Refills Prov:RICHARD CHERY MD 12/19/17 Losartan Potassium (LOSARTAN POTASSIUM) 100 Mg Tablet, 100 MG PO QDAY, #90 TAB 3 Refills Prov:RICHARD CHERY MD 09/23/17 Ipratropium/Albuterol Sulfate (IPRAT-ALBUT 0.5-3(2.5) MG/3 ML) 3 Ml Ampul.neb, 3 ML IH QID PRN for SHORTNESS OF BREATH, #100 ML 6 Refills Prov:RICHARD CHERY MD 09/23/17 Reported Medications Escitalopram Oxalate (ESCITALOPRAM OXALATE) 10 Mg Tablet, 5 MG PO QDAY, TAB 10/03/18 Amlodipine Besylate (AMLODIPINE BESYLATE) 10 Mg Tablet, 1 TAB PO QDAY, TAB 10/03/18 Albuterol Sulfate 90 Mcg/Act (PROAIR HFA 90 MCG/ACT) 8.5 Gm Hfa.aer.ad, 2 PUFF IH QID, INHALER 10/03/18 Magnesium Oxide (Magnesium Oxide) 400 Mg Tablet, 400 MG PO QDAY 10/03/18 Fluticasone Prop 50 Mcg Ns (FLONASE 50 MCG NS) 16 Gm [place].susp, 2 SPRAYS NS QDAY PRN for prn, BOT 10/03/18 Fluticasone/Salmeterol (ADVAIR 250-50 DISKUS) 1 Each Disk.w.dev, 1 EACH IH BID 05/29/18 Omeprazole (OMEPRAZOLE) 20 Mg Capsule.dr, 1 CAP PO QDAY, CAP 09/29/17 Oxygen (Oxygen) 2 L Inha, 2.5 L INH 10/03/12 Discontinued Scripts Sodium Chloride (SODIUM CHLORIDE) 1 Gm Tab, 0.5 GM PO BID, #30 TAB 6 Refills Prov:RICHARD CHERY MD 12/29/17 Magnesium Oxide (MAGNESIUM OXIDE) 400 Mg Tablet, 400 MG PO BID, #180 TAB 1 Refill Prov:RICHARD CHERY MD 08/15/18 Fluticasone Prop 50 Mcg Ns (FLONASE 50 MCG NS) 16 Gm [place].susp, 2 SPRAYS NS QDAY, #1 BOT 1 Refill Prov:RICHARD CHERY MD 07/04/18 Nebulizer (Aeroneb Go Nebuliser) 1 Each Each, UNIT INH for asthma, #1 Prov:RICHARD CHERY MD 09/23/17 Escitalopram Oxalate (ESCITALOPRAM OXALATE) 5 Mg Tablet, 5 MG PO QDAY, #30 TAB 3 Refills Prov:RICHARD CHERY MD 09/21/18 Albuterol Sulfate 90 Mcg/Act (PROAIR HFA 90 MCG/ACT) 8.5 Gm Hfa.aer.ad, 2 PUFF IH QID, #3 INHALER 3 Refills Prov:RICHARD CHERY MD 09/11/18 Prednisone (PREDNISONE) 20 Mg Tablet, 20 MG PO BID, #10 TAB Prov:RICHARD CHERY MD 08/15/18 Diet: Regular Activity: As Tolerated Copies to: RICHARD CHERY MD ; Venous Thromboembolism Antithrombotics Is Pt On Any Antithrombotics?: Yes [id number] Certification Face to Face Home Health Certification Patient's Primary Care Provider: Richard Chery MD Institutional Provider conducted the [id number] encounter. Electronic Undersigning Physician Certifies Home Health. I certify that the patient has been under my care and that I had a [id number] encounter that meets the physician [id number] encounter requirements with this patient. This patient is home-bound due to safety issues and continues to require assistance with ADL's. I certify that based on my findings, that Nursing, Aides and the following Home Health services are medically necessary: Medical Necessity: Nursing, Rehab Date Face to Face Conducted: Oct 04, 2018 WENCESLAO CHAVIS DO Oct 04, 2018 10:05
--- NOTE | 2018-10-04 10:06 | Antimicrobial Stewardship ---
Antimicrobial Stewardship Empiricly appropriate: Yes Significant PMH: Yes (Asthma, COPD) Support empiric regimen: Yes (Doxycycline) Approriate Cultures done: Yes (Blood Cx x 2 - NGTD, Sputum gram stain (-)- normal jb) IV to PO Opportunity: Yes (Transition to oral today, if not discharging) Determine cumulative duration: Today is day 3 Determine standard duration: 5-7 days Comment 82 yo F with a PMH of asthma and COPD who presented with increasing cough, weakness, and SOB. Pt also reported increased cough and mucus production over the last two weeks. Tmax afebrile WBC wnl Chest xray wnl Blood Cx - NGTD Sputum gram stain (-) Started on Doxycycline, nebs, prednisone. Continue to complete 5-7 day course. Switch to oral if pt is not discharged today. Aimee Ryan, PharmD, BCOP AIMEE RYAN Oct 04, 2018 10:06
[2018-10-11] MEDS ORDERED: PRED-1 PO (14:32)
[2018-10-11] MEDS ORDERED: AMLO-127 PO (14:32)
[2018-10-11] MEDS ORDERED: ALBU8.5H IH (14:35)
== END 2018-10-04 10:00 | disposition home health service (06) ==
LOC: ER 19:06 → INTOOBSV 10-02 05:34 → MED 10-02 05:34
PROVIDERS: ADMIT Internal Medicine; ATTEND Internal Medicine
DX: J44.1 Chronic obstructive pulmonary disease with (acute) exacerbation (principal); E87.1 Hypo-osmolality and hyponatremia; R53.1 Weakness; Z99.81 Dependence on supplemental oxygen; E22.2 Syndrome of inappropriate secretion of antidiuretic hormone; J96.11 Chronic respiratory failure with hypoxia; R79.89 Other specified abnormal findings of blood chemistry
CPT/HCPCS: 36415; 71046; 81001; 83605; 83735; 83880; 84484; 85025; 87040; 87070; 87205; 87502; 93005; 94640; 94667; 94668; 96360; 96361; 96372; 96374; 97161; 97165; 97530; 99284; A9270; G0378; J1650; J2930; J3490; J3535; J7030; J7050; J7512; J7620; 82040; 82247; 82310; 82374; 82435; 82565; 82947; 84075; 84132; 84155; 84295; 84450; 84460; 84520

== ENCOUNTER → 2018-10-11 | Outpatient (CLI) | payer MEDICARE ==
[2018-10-02 08:55] VITALS: BMI 23.2
[~2018-10-11] MED LIST changes: +DOXY-179 PO; +ESCI10TA8 PO; +MAGN400T23 PO
[2018-10-11 15:17] LABS: PLATELET COUNT, AUTOMATED 327 K/uL (150-450)
== END ==
LOC: LAB 14:42
PROVIDERS: ATTEND Internal Medicine
DX: E87.1 Hypo-osmolality and hyponatremia (principal); I10 Essential (primary) hypertension; J45.909 Unspecified asthma, uncomplicated
CPT/HCPCS: 36415; 82040; 82247; 82310; 82374; 82435; 82565; 82947; 83735; 84075; 84132; 84155; 84295; 84443; 84450; 84460; 84520; 85025

== ENCOUNTER → 2018-11-17 | Outpatient (CLI) | payer MEDICARE ==
[2018-10-02 08:55] VITALS: BMI 23.2
[~2018-11-17] MED LIST changes: +SODI15OR PO; +SPIR25TA80 PO
== END ==
LOC: LAB 09:59
PROVIDERS: ATTEND Internal Medicine
DX: E87.1 Hypo-osmolality and hyponatremia (principal); I10 Essential (primary) hypertension; J45.909 Unspecified asthma, uncomplicated
CPT/HCPCS: 36415; 82040; 82247; 82310; 82374; 82435; 82565; 82947; 83735; 84075; 84132; 84155; 84295; 84450; 84460; 84520

== ENCOUNTER → 2018-11-21 | Outpatient (CLI) | payer MEDICARE ==
[2018-10-02 08:55] VITALS: BMI 23.2
[2018-11-21 14:09] LABS: PLATELET COUNT, AUTOMATED 304 K/uL (150-450)
== END ==
LOC: LAB 13:51
PROVIDERS: ATTEND Internal Medicine
DX: J45.909 Unspecified asthma, uncomplicated (principal); I10 Essential (primary) hypertension; R60.9 Edema, unspecified; E87.5 Hyperkalemia; E87.1 Hypo-osmolality and hyponatremia
CPT/HCPCS: 36415; 82040; 82247; 82310; 82374; 82435; 82565; 82947; 83735; 84075; 84132; 84155; 84295; 84450; 84460; 84520; 85025

== ENCOUNTER → 2018-12-08 | Outpatient (CLI) | payer MEDICARE ==
[2018-10-02 08:55] VITALS: BMI 23.2
== END ==
LOC: LAB 13:51
PROVIDERS: ATTEND Internal Medicine
DX: R60.0 Localized edema (principal); E87.5 Hyperkalemia; E87.1 Hypo-osmolality and hyponatremia
CPT/HCPCS: 36415; 82040; 82247; 82310; 82374; 82435; 82565; 82947; 83735; 84075; 84132; 84155; 84295; 84450; 84460; 84520

== ENCOUNTER → 2019-02-09 | Outpatient (CLI) | payer MEDICARE ==
[2018-10-02 08:55] VITALS: BMI 23.2
[~2019-02-09] MED LIST changes: -OMEP-125 PO; +OMEP-126 PO; -SODI15OR PO; +SODI15OR5 PO
--- NOTE | 2019-02-09 17:08 | RADIOLOGY IMAGING REPORT ---
[place] [facility] [place] NAME: Svetlana Hall : 1935 MR: [id number] V: [id number] EXAM DATE: ORDERING PHYSICIAN: OSORIO SHIELDS TECHNOLOGIST: [place] [facility] [place]vetlana [place] : 1935 Visit/Account:[id number] Date of Sevice: 02/09/2019 CHEST PA LAT Indication: Upper respiratory infection. Cough, difficulty breathing for one week. Comparison: Chest x-ray 10/01/2018. Findings: Lungs: There is a small calcified granuloma in the right midlung zone, unchanged. This is seen betwee n the posterior right eighth and ninth ribs. Lungs are otherwise clear. Mediastinum/pulmonary vasculature: Heart size and pulmonary vasculature are normal. Bones/soft tissues: Normal. IMPRESSION: 1. Benign calcified granuloma right mid lung, stable. 2. No acute airspace opacity or pneumonia. Report Dictated By: Hugo Marinelli at 02/09/2019 4:59 PM Report E-Signed By: Hugo Marinelli at 02/09/2019 5:01 PM WSN:[id number]
== END ==
LOC: RAD 16:25
PROVIDERS: ATTEND Family Medicine
DX: J06.9 Acute upper respiratory infection, unspecified (principal)
CPT/HCPCS: 71046

== ENCOUNTER 2019-02-12 17:25 | Inpatient (IN) | payer MEDICARE ==
[~2019-02-12] VITALS: Ht 12.7 cm; Wt 56.9 kg
[2019-02-12] MEDS ORDERED: NS(*) 0.9% 1000 ML BAG 1,000 ML IV ONE (17:40)
--- NOTE | 2019-02-12 17:40 | ER Report ---
History and Physical Time Seen By MD: 17:36 HPI/ROS CHIEF COMPLAINT: Hyperkalemia, hyponatremia, cough HISTORY OF PRESENT ILLNESS: 83-year-old female patient presents to emergency room with complaint of hyperkalemia, hyponatremia and cough. Patient was seen by her primary care provider on Tuesday for the cough. She was started on azithromycin after a negative chest x-ray. She followed up today, lungs sounds are persistently coarse with rhonchi. Lab work was done at that point in time. Patient had a normal white count, however she had a low sodium of 122 and a high potassium of 5.4. At that time the primary care provider decided to refer her to the emergency room for further evaluation and treatment. Patient states that she did feel better for a couple of days on antibiotics and then the cough is worsening. She denies any fevers or chills. She states that she is not taking any other medications for this. REVIEW OF SYSTEMS: Respiratory: As noted above Cardiovascular: No chest pain, no palpitations. Gastrointestinal: No vomiting, no abdominal pain. Musculoskeletal: No back pain. Allergies: Coded Allergies: montelukast (Verified Allergy, Mild, ITCHING AND RASH, 02/12/19) phenobarbital (Verified Allergy, Mild, RASH, 02/12/19) Home Meds Active Scripts Clopidogrel Bisulfate (CLOPIDOGREL) 75 Mg Tablet, 1 TAB PO QDAY, #90 TAB 3 Refills Prov:RICHARD LYLES MD 12/19/18 Losartan Potassium (LOSARTAN POTASSIUM) 100 Mg Tablet, 100 MG PO QDAY, #90 TAB 3 Refills Prov:RICHARD LYLES MD 10/24/18 Albuterol Sulfate 90 Mcg/Act (PROAIR HFA 90 MCG/ACT) 8.5 Gm Hfa.aer.ad, 2 PUFF IH QID PRN for SHORTNESS OF BREATH, #1 INHALER 6 Refills Prov:RICHARD LYLES MD 10/11/18 Metoprolol Succinate (METOPROLOL SUCCINATE) 100 Mg Tab.er.24h, 1 TAB PO QDAY, #90 TAB 3 Refills Prov:RICHARD LYLES MD 07/19/18 Ipratropium/Albuterol Sulfate (IPRAT-ALBUT 0.5-3(2.5) MG/3 ML) 3 Ml Ampul.neb, 3 ML IH QID PRN for SHORTNESS OF BREATH, #100 ML 6 Refills Prov:RICHARD LYLES MD 09/23/17 Reported Medications Sodium Chloride (SODIUM CHLORIDE) 1 Gm Tab, 1 GM PO QDAY, TAB 02/12/19 Azithromycin 250 Mg Tab (AZITHROMYCIN 250 MG TAB) 250 Mg Tablet, 250 MG PO QDAY 02/12/19 Spironolactone (SPIRONOLACTONE) 25 Mg Tablet, 25 MG PO QDAY, TAB 02/12/19 Magnesium Oxide (Magnesium Oxide) 400 Mg Tablet, 400 MG PO QDAY 10/03/18 Fluticasone/Salmeterol (ADVAIR 250-50 DISKUS) 1 Each Disk.w.dev, 1 EACH IH BID 05/29/18 Omeprazole (OMEPRAZOLE) 20 Mg Capsule.dr, 1 CAP PO QDAY, CAP 09/29/17 Oxygen (Oxygen) 2 L Inha, 2.5 L INH 10/03/12 Discontinued Scripts Furosemide (FUROSEMIDE) 20 Mg Tablet, 1 TAB PO QDAY, #30 TAB 3 Refills Prov:RICHARD LYLES MD 11/21/18 Sodium Polystyrene Sulfonate 15 Gm/60 Ml (KAYEXALATE 15 GM/60 ML) 15 Gm/60 Ml Oral.susp, 15 GM PO BID for 1 Day, #30 GM Prov:RICHARD LYLES MD 11/17/18 Amlodipine Besylate (AMLODIPINE BESYLATE) 10 Mg Tablet, 1 TAB PO QDAY, #30 TAB 6 Refills Prov:RICHARD LYLES MD 10/11/18 Sodium Chloride (SODIUM CHLORIDE) 1 Gm Tab, 1 GM PO BID, #60 TAB Prov:WENCESLAO CHAVIS DO 10/04/18 Past Medical/Surgical History Patient has a past medical history of CVA, TIA, A. fib, hypertension, asthma, pneumonia, reflux, hiatal hernia, arthritis, back pain, shingles, alcohol use. Patient has a surgical history of tonsillectomy, cataract surgery, tubal ligation, partial hysterectomy. Patient has a family medical history of cancer, stroke, diabetes. Reviewed Nurses Notes: Yes Hx Smoking: No Smoking Status: Never Smoker Exposure to Second Hand Smoke?: Yes Hx Substance Use Disorder: No Hx Alcohol Use: Yes Constitutional Vital Sign - Last 24 Hours 02/12/19 02/12/19 02/12/1902/12/19 17:44 17:50 17:52 17:55 Temp 98.2 Pulse 74 82 Resp 14 24 B/P (MAP) 145/97 (113) 145/97 Pulse Ox 95 94 O2 Delivery Nasal Cannula O2 Flow Rate 2.0 02/12/19 02/12/19 02/12/19 02/12/19 18:00 18:15 18:15 18:22 Pulse 85 83 Resp 23 22 B/P (MAP) 151/94 (113) Pulse Ox 95 O2 Delivery Nasal Cannula O2 Flow Rate 2.0 02/12/19 02/12/19 02/12/19 02/12/19 18:25 18:30 18:55 19:00 Pulse 84 84 Resp 40 27 B/P (MAP) 140/79 (99) 164/81 (108) Pulse Ox 94 94 02/12/19 02/12/19 02/12/19 02/12/19 19:05 19:20 19:40 19:55 Pulse 80 90 75 Resp 24 35 Pulse Ox 92 90 91 96 02/12/19 02/12/19 02/12/19 20:00 20:10 20:25 Pulse 77 74 B/P (MAP) 147/69 (95) Pulse Ox 95 95 Physical Exam General Appearance: The patient is alert, has no immediate need for airway protection and no current signs of toxicity. Respiratory: Chest is non tender, lungs are coarse with rhonchi to auscultation. Cardiac: regular rate and rhythm Gastrointestinal: Abdomen is soft and non tender, no masses, bowel sounds normal. Musculoskeletal: Neck: Neck is supple and non tender. Extremities have full range of motion and are non tender. Skin: No rashes or lesions. DIFFERENTIAL DIAGNOSIS: After history and physical exam differential diagnosis was considered for pneumonia, low sodium, elevated potassium, dehydration. Medical Decision Making Data Points Result Diagram: 02/12/19180102/12/191801 Laboratory Hematology Test 02/12/19 18:02 White Blood Count 7.2 k/uL (4.5-11.0) Red Blood Count 3.81 M/uL (4.17-5.56) L Hemoglobin 11.5 g/dL (12.0-16.0) L Hematocrit 33.1 % (34.0-47.0) L Mean Corpuscular Volume 86.9 fL (80.0-96.0) Mean Corpuscular Hemoglobin 30.1 pg (26.0-33.0) Mean Corpuscular Hemoglobin Concent 34.6 g/dL (32.0-36.0) Red Cell Distribution Width 12.8 % (11.5-14.5) Platelet Count 300 K/uL (150-450) Mean Platelet Volume 7.0 fL (7.2-11.1) L Neutrophils (%) (Auto) 69.7 % (39.4-72.5) Lymphocytes (%) (Auto) 14.8 % (17.6-49.6) L Monocytes (%) (Auto) 12.0 % (4.1-12.4) Eosinophils (%) (Auto) 2.8 % (0.4-6.7) Basophils (%) (Auto) 0.7 % (0.3-1.4) Nucleated RBC Relative Count (auto) 0.0 /100WBC Neutrophils # (Auto) 5.0 K/uL (2.0-7.4) Lymphocytes # (Auto) 1.1 K/uL (1.3-3.6) L Monocytes # (Auto) 0.9 K/uL (0.3-1.0) Eosinophils # (Auto) 0.2 K/uL (0.0-0.5) Basophils # (Auto) 0.1 K/uL (0.0-0.1) Nucleated RBC Absolute Count (auto) 0.00 K/uL Chemistry Test 02/12/19 18:02 Sodium Level 117 mmol/L (137-145) Potassium Level 5.7 mmol/L (3.5-5.0) Chloride Level 84 mmol/L (98-107) Carbon Dioxide Level 22 mmol/L (22-31) Blood Urea Nitrogen 17 mg/dl (7-18) Creatinine 0.80 mg/dl (0.52-1.04) Glomerular Filtration Rate Calc > 60.0 Random Glucose 100 mg/dl (75-110) Calcium Level 9.7 mg/dl (8.4-10.2) Total Bilirubin 0.4 mg/dl (0.2-1.3) Aspartate Amino Transf (AST/SGOT) 27 U/L (0-35) Alanine Aminotransferase (ALT/SGPT) 29 U/L (0-56) Alkaline Phosphatase 66 U/L (0-126) Troponin I < 0.012 ng/ml Total Protein 7.1 g/dl (6.3-8.2) Albumin 4.4 g/dl (3.5-5.0) Coagulation Test 02/12/19 18:02 D-Dimer Quantitative (PE/DVT) 0.39 ug/ml (0-0.50) EKG/Imaging EKG Interpretation 12 lead EKG: Rhythm: normal sinus rhythm [place]: normal QRS: normal ST segments: normal Imaging CHEST PA LAT COMPARISONS: Views of the chest dated February 09, 2019 ADDITIONAL PERTINENT HISTORY: Cough with rhonchi FINDINGS: Cardiomediastinal silhouette: Negative. Pulmonary vasculature: Mild atherosclerotic disease of the thoracic aortic arch. Otherwise negative Lung grimes: Elevation of the left hemidiaphragm with overlying scarring at the left lung base. Otherwise negative Pleural spaces: Negative. Osseous structures: Mild spondylitic change involving the thoracic spine Surrounding soft tissues: Negative. IMPRESSION: No evidence of acute cardiopulmonary disease. Report Dictated By: Bharat Saucedo MD at 02/12/2019 7:42 PM Report E-Signed By: Bharat Saucedo MD at 02/12/2019 7:43 PM ED Course/Re-evaluation ED Course Patient was admitted and examined, history and physical were obtained. Differential diagnoses were considered. On examination lungs were coarse with rhonchi, abdomen soft nontender, heart was regular. A repeat CBC, CMP, troponin, EKG were done. EKG showed a normal sinus rhythm. Repeat lab work showed a elevated potassium of 5.7, a low sodium of 117. A d-dimer was done which was negative. I discussed the findings with the patient and her family. We will go ahead and do a chest x-ray. Chest x-ray showed no acute cardiopulmonary processes. I discussed the case with Dr. Gage, hospitalist, who agreed to accept the patient for admission with diagnosis of hyponatremia. I discussed this with patient and her family and they verbalized understanding and agreement with plan. Decision to Disposition Date: Feb 12, 2019 Decision to Disposition Time: 20:13 Depart Departure Latest Vital Signs Vital Signs Date Time Temp Pulse Resp B/P (MAP) Pulse Ox O2 Delivery O2 Flow Rate FiO2 02/12/19 20:25 74 95 02/12/19 20:00 147/69 (95) 02/12/19:20 35 02/12/19 18:15 Nasal Cannula 2.0 02/12/19 17:52 98.2 Impression: Primary Impression: Hyponatremia Additional Impressions: Hyperkalemia Dyspnea and respiratory abnormalities Condition: Condition Unchanged Disposition: Admitted from ER Referrals: RICHARD LYLES MD (PCP) Problem Qualifiers ANGELA MCINTYRE Feb 12, 2019 17:40
--- NOTE | 2019-02-12 17:58 | EKG ---
FACILITY: [facility] - [place] PATIENT NAME: MILVIA LÓPEZ : [id number] MR: [id number] V: [id number] EXAM DATE: ORDERING PHYSICIAN: ANGELA MCINTYRE TECHNOLOGIST: ARIANNA Zacarias Reason : elevated k Blood Pressure : / mmHG Vent. Rate : 074 BPM Atrial Rate : 074 BPM P-R Int : 182 ms QRS Dur : 092 ms QT Int : 358 ms P-R-T Axes : 066 071 087 degrees QTc Int : 397 ms Normal sinus rhythm Normal ECG When compared with ECG of 01-OCT-2018 19:11, Nonspecific T wave abnormality no longer evident in Inferior leads Nonspecific T wave abnormality now evident in Anterolateral leads Confirmed by Esteban Gore ([id number]) on 02/13/2019 12:40:34 AM Referred By: FRANCISCO JAVIER Confirmed By:Esteban Hernandez
[2019-02-12 18:14] LABS: PLATELET COUNT, AUTOMATED 300 K/uL (150-450)
[2019-02-12] MEDS ORDERED: ALBUTEROL/IPRATROPIUM 3 ML NEB NEB ONE (18:15)
[2019-02-12] MEDS ORDERED: AZIT-18 PO (18:59)
[2019-02-12] MEDS ORDERED: SPIR25TA80 PO (18:59)
--- NOTE | 2019-02-12 19:51 | RADIOLOGY IMAGING REPORT ---
FACILITY: PATIENT NAME: Svetlana Hall : 1935 MR: [id number] V: [id number] EXAM DATE: ORDERING PHYSICIAN: ANGELA MCINTYRE TECHNOLOGIST: Location: [facility] Patient: Svetlana Hall : 1935 Visit/Account:[id number] Date of Sevice: 02/12/2019 CHEST PA LAT COMPARISONS: Views of the chest dated February 09, 2019 ADDITIONAL PERTINENT HISTORY: Cough with rhonchi FINDINGS: Cardiomediastinal silhouette: Negative. Pulmonary vasculature: Mild atherosclerotic disease of the thoracic aortic arch. Otherwise negative Lung grimes: Elevation of the left hemidiaphragm with overlying scarring at the left lung base. Oth erwise negative Pleural spaces: Negative. Osseous structures: Mild spondylitic change involving the thoracic spine Surrounding soft tissues: Negative. IMPRESSION: No evidence of acute cardiopulmonary disease. Report Dictated By: Bharat Saucedo MD at 02/12/2019 7:42 PM Report E-Signed By: Bharat Saucedo MD at 02/12/2019 7:43 PM WSN:[id number]
[2019-02-12 21:00] VITALS: BP 164/71
[2019-02-12] MEDS ORDERED: SODCTAB PO (21:21)
[2019-02-12] MEDS ORDERED: FLUSH 10 ML SYR IVP PRN (22:30)
[2019-02-12] MEDS ORDERED: ALBUTEROL 2.5 MG/3 ML NEB NEB PRN (22:30)
[2019-02-12] MEDS ORDERED: methylPREDNIS SUCC 125 MG/2ML IVP ONE (22:30)
[2019-02-12] MEDS ORDERED: FUROSEMIDE 20 MG/2 ML VIAL IVP ONE (22:35)
[2019-02-12 22:45] VITALS: BP 152/72
[2019-02-12] MEDS ORDERED: PATIENT'S OWN MED PO SCH (22:45)
--- NOTE | 2019-02-12 22:50 | History & Physical ---
History of Present Illness Chief Complaint cough History of Present Illness 83F presented from PCP office after labs found low sodium. PMHx significant for chronic hypoxia, SIADH. Patient has been treated by PCP who began azithromycin 3 days ago for presumed pneumonia and on follow up today labs showed worsening hyponatremia with hyperkalemia. Referred to ER where hyponatremia was again confirmed at 117, her usual sodium is 127-130. She denies any symptoms other than productive cough of yellow sputum. She is on her baseline O2 at 2L. She was admitted for monitoring of her sodium levels and breathing treatments. History Problems: (1) Hyponatremia Status: Chronic (2) SIADH (syndrome of inappropriate ADH production) Status: Chronic (3) Asthma Status: Chronic Home Meds Active Scripts Clopidogrel Bisulfate (CLOPIDOGREL) 75 Mg Tablet, 1 TAB PO QDAY, #90 TAB 3 Refills Prov:RICHARD LYLES MD 12/19/18 Losartan Potassium (LOSARTAN POTASSIUM) 100 Mg Tablet, 100 MG PO QDAY, #90 TAB 3 Refills Prov:RICAHRD LYLES MD 10/24/18 Albuterol Sulfate 90 Mcg/Act (PROAIR HFA 90 MCG/ACT) 8.5 Gm Hfa.aer.ad, 2 PUFF IH QID PRN for SHORTNESS OF BREATH, #1 INHALER 6 Refills Prov:RICHARD LYLES MD 10/11/18 Metoprolol Succinate (METOPROLOL SUCCINATE) 100 Mg Tab.er.24h, 1 TAB PO QDAY, #90 TAB 3 Refills Prov:RICHARD LYLES MD 07/19/18 Ipratropium/Albuterol Sulfate (IPRAT-ALBUT 0.5-3(2.5) MG/3 ML) 3 Ml Ampul.neb, 3 ML IH QID PRN for SHORTNESS OF BREATH, #100 ML 6 Refills Prov:RICHARD LYLES MD 09/23/17 Reported Medications Sodium Chloride (SODIUM CHLORIDE) 1 Gm Tab, 1 GM PO QDAY, TAB 02/12/19 Azithromycin 250 Mg Tab (AZITHROMYCIN 250 MG TAB) 250 Mg Tablet, 250 MG PO QDAY 02/12/19 Spironolactone (SPIRONOLACTONE) 25 Mg Tablet, 25 MG PO QDAY, TAB 02/12/19 Magnesium Oxide (Magnesium Oxide) 400 Mg Tablet, 400 MG PO QDAY 10/03/18 Fluticasone/Salmeterol (ADVAIR 250-50 DISKUS) 1 Each Disk.w.dev, 1 EACH IH BID 05/29/18 Omeprazole (OMEPRAZOLE) 20 Mg Capsule.dr, 1 CAP PO QDAY, CAP 09/29/17 Oxygen (Oxygen) 2 L Inha, 2.5 L INH 10/03/12 Discontinued Scripts Furosemide (FUROSEMIDE) 20 Mg Tablet, 1 TAB PO QDAY, #30 TAB 3 Refills Prov:RICHARD LYLES MD 11/21/18 Sodium Polystyrene Sulfonate 15 Gm/60 Ml (KAYEXALATE 15 GM/60 ML) 15 Gm/60 Ml Oral.susp, 15 GM PO BID for 1 Day, #30 GM Prov:RICHARD LYLES MD 11/17/18 Amlodipine Besylate (AMLODIPINE BESYLATE) 10 Mg Tablet, 1 TAB PO QDAY, #30 TAB 6 Refills Prov:RICHARD LYLES MD 10/11/18 Sodium Chloride (SODIUM CHLORIDE) 1 Gm Tab, 1 GM PO BID, #60 TAB Prov:WENCESLAO CHAVIS DO 10/04/18 Allergies: Coded Allergies: montelukast (Verified Allergy, Mild, ITCHING AND RASH, 02/12/19) phenobarbital (Verified Allergy, Mild, RASH, 02/12/19) Patient History: Blood clots FATHER, Cervical cancer CHILD, , Age:59 Diabetes mellitus CHILD CHILD FH: breast cancer siblings x 8 ( sister ) FH: heart attack FATHER, MOTHER, siblings x 8 (Brother) No pertinent family history CHILD CHILD Hx Smoking: No Smoking Status: Never Smoker Exposure to Second Hand Smoke?: Yes Caffeine Intake: Coffee, Soda Caffeine/Cups Per Day: 1C/day Hx Alcohol Use: Yes Hx Substance Use Disorder: No Social Drug Use: Never Review of Systems All Systems Reviewed/Normal: Yes, Except as Noted Neurological: No Confusion, No Weakness, No Dizziness Respiratory: Cough; No Shortness of Breath Exam Vital Signs Vital Signs Date Time Temp Pulse Resp B/P (MAP) Pulse Ox O2 Delivery O2 Flow Rate FiO2 02/12/19 22:01 100 Nasal Cannula 2.0 02/12/19 21:00 97.9 76 16 164/71 (102) General Appearance: Alert, Awake, No Acute Distress Neuro: No Gross deficits Cardiovascular: Normal Rhythm & Peripheral Pulses Respiratory: No Respiratory Distress (B/L wheezing) GI: Abd Soft and Non-Tender Extremities: Soft and Non Tender, Warm, Pulses, Perfused; No Edema Integumentary: Skin Intact without Lesion / Mass Medical Decision Making Data Points Result Diagram: 02/12/19180102/12/191801 EKG / Imaging EKG Interpretation NSR Assessment and Plan Problems: (1) Hyponatremia Status: Chronic Assessment & Plan: Asymptomatic acute decrease of chronic hyponatremia. Secondary to SIADH. Treatment as below baseline 127-130. (2) SIADH (syndrome of inappropriate ADH production) Status: Chronic Assessment & Plan: Sodium decreased from baseline, will fluid restrict 1000cc daily and monitor. Takes 1g NaCl tab daily, may restart tomorrow based on AM labs. (3) Asthma exacerbation Status: Acute Assessment & Plan: Some wheezing, increased sputum production. Patient has no diagnosis of COPD but seems to be exacerbation of chronic lung problem. 125mg IV Solu-Medrol given, begin 40mg prednisone daily. WIll finish azithromycin previously prescribed. (4) Hyperkalemia Status: Acute Assessment & Plan: Mild increase, asymptomatic. One time dose Lasix given, will recheck in am. Venous Thromboembolism Antithrombotics Is Pt On Any Antithrombotics?: Yes Exam Sepsis Risk: No Definite Risk WATTERS RAJINDER PARKS DO Feb 12, 2019 22:50
[2019-02-13 04:58] VITALS: BP 119/74
[2019-02-13] MEDS: SALMETEROL/FLUTIC 250/50 1 INH INH SCH ×2 (05:43→17:09)
[2019-02-13] MEDS: ALBUTEROL/IPRATROPIUM 3 ML NEB NEB SCH ×5 (05:43→19:37)
[2019-02-13 06:54] VITALS: BP 155/75
[2019-02-13] MEDS ORDERED: PATIENT'S OWN MED PO SCH (09:00)
[2019-02-13] MEDS ORDERED: LOSARTAN POTASSIUM 50 MG TAB PO SCH (09:00)
[2019-02-13] MEDS: predniSONE 20 MG TAB PO SCH (09:26)
[2019-02-13] MEDS: METOPROLOL SUCC XL 50 MG TABCR 50 MG TAB.ER.24H PO SCH (09:26)
[2019-02-13] MEDS: ENOXAPARIN 40 MG/0.4ML SYR SC SCH (09:27)
[2019-02-13] MEDS: PANTOPRAZOLE SOD 40 MG TABEC PO SCH (09:27)
[2019-02-13] MEDS: CLOPIDOGREL BISULFATE 75MG TAB PO SCH (09:27)
[2019-02-13] MEDS: SODIUM CHLORIDE 1 GR TAB PO SCH (09:27)
--- NOTE | 2019-02-13 10:57 | Hospitalist Progress Note ---
Subjective Progress Notes Subjective This patient was admitted for hyponatremia. She had no acute changes overnight. Patient Complains of: Cardiovascular: No: Chest Pain Respiratory: No: Shortness of Breath Physical Exam Vital Signs Date Time Temp Pulse Resp B/P (MAP) Pulse Ox O2 Delivery O2 Flow Rate FiO2 02/13/19 06:54 97.8 94 155/75 (101) 95 Nasal Cannula 2.0 02/13/19 05:44 18 Intake and Output 02/13/19 07:03 Intake Total 1100 ml Output Total 1000 ml Balance 100 ml Intake Oral 100 ml IV Total 1000 ml Output Urine Total 1000 ml # Voids 3 Cardiovascular: Regular Rate and Rhythm Respiratory: Clear to Auscultation Result Diagram: 02/12/19 1802 02/13/19 0517 Assessment and Plan Problems: (1) Hyponatremia Status: Chronic Assessment & Plan: She does have baseline low sodium secondary to SIADH, but was lower than usual at admission. She has been placed on fluid restriction and her chronic sodium supplements have been restarted. (2) SIADH (syndrome of inappropriate ADH production) Status: Chronic Assessment & Plan: As above. (3) Asthma exacerbation Status: Acute Assessment & Plan: She was started on azithromycin as an outpatient. She is receiving nebulizers and oral prednisone. (4) Hyperkalemia Status: Acute Assessment & Plan: Her losartan and spironolactone have been discontinued. Exam Sepsis Risk: No Definite Risk WENCESLAO CHAVIS DO Feb 13, 2019 10:56
[2019-02-13 11:27] VITALS: Ht 12.7 cm; Wt 56.9 kg
[2019-02-13 14:26] VITALS: BP 165/92
[2019-02-13 16:45] VITALS: BP 133/70
[2019-02-13 19:34] VITALS: BP 133/61
[2019-02-13] MEDS ORDERED: AZITHROMYCIN 250 MG TAB PO SCH (21:00)
[2019-02-13 22:50] VITALS: BP 132/68
[2019-02-14 03:10] VITALS: BP 132/58
[2019-02-14] MEDS: ALBUTEROL/IPRATROPIUM 3 ML NEB NEB SCH ×4 (06:13→18:38)
[2019-02-14] MEDS: SALMETEROL/FLUTIC 250/50 1 INH INH SCH ×2 (06:13→17:04)
[2019-02-14 08:16] VITALS: BP 125/87
[2019-02-14] MEDS: predniSONE 20 MG TAB PO SCH (09:11)
[2019-02-14] MEDS: CLOPIDOGREL BISULFATE 75MG TAB PO SCH (09:11)
[2019-02-14] MEDS: SODIUM CHLORIDE 1 GR TAB PO SCH (09:11)
[2019-02-14] MEDS: METOPROLOL SUCC XL 50 MG TABCR 50 MG TAB.ER.24H PO SCH (09:11)
[2019-02-14] MEDS: PANTOPRAZOLE SOD 40 MG TABEC PO SCH (09:11)
[2019-02-14] MEDS: ENOXAPARIN 40 MG/0.4ML SYR SC SCH (09:12)
--- NOTE | 2019-02-14 11:21 | Hospitalist Progress Note ---
Subjective Progress Notes Subjective She reports feeling improved. Not as weak. Appetite improved. Physical Exam Vital Signs Date Time Temp Pulse Resp B/P (MAP) Pulse Ox O2 Delivery O2 Flow Rate FiO2 02/14/19 09:20 94 Nasal Cannula 1.5 02/14/19 08:16 97.4 82 24 125/87 (100) Intake and Output 02/14/19 07:03 Intake Total 1200 ml Output Total 940 ml Balance 260 ml Intake Oral 1200 ml Output Urine Total 940 ml # Voids 3 # Bowel Movements 1 General Appearance: Alert, Awake Cardiovascular: Regular Rate and Rhythm Respiratory: Clear to Auscultation GI: Soft and Non-Tender Extremities: Warm, Perfused Psych: Alert & Oriented X3 Result Diagram: 02/12/19 1802 02/14/19 0558 Assessment and Plan Problems: (1) Hyponatremia Status: Chronic Assessment & Plan: Improved. Sodium 120 this AM. She does have baseline low sodium secondary to chronic/recurrent SIADH, but was lower than usual at admission. She has been placed on fluid restriction and her usual sodium supplements have been restarted. (2) SIADH (syndrome of inappropriate ADH production) Status: Chronic Assessment & Plan: As above. (3) Asthma exacerbation Status: Acute Assessment & Plan: Stable. Lungs are essentially clear. She was started on azithromycin as an outpatient. She is receiving nebulizers and oral prednisone. (4) Hyperkalemia Status: Acute Assessment & Plan: Her losartan and spironolactone have been discontinued. May be exacerbating her sodium level as well. Exam Sepsis Risk: No Definite Risk DAMON VOSS MD Feb 14, 2019 11:20
[2019-02-14 13:11] VITALS: BP 122/69
[2019-02-14 15:29] VITALS: BP 139/70
[2019-02-14 19:14] VITALS: BP 116/56
[2019-02-14] MEDS: ACETAMINOPHEN 325 MG TAB PO PRN (20:48)
[2019-02-15 00:15] VITALS: BP 136/68
[2019-02-15] MEDS: SALMETEROL/FLUTIC 250/50 1 INH INH SCH ×2 (02:38→17:20)
[2019-02-15] MEDS: ALBUTEROL/IPRATROPIUM 3 ML NEB NEB SCH ×3 (02:38→17:20)
[2019-02-15 03:28] VITALS: BP 182/88
[2019-02-15 06:32] LABS: PLATELET COUNT, AUTOMATED 267 K/uL (150-450)
[2019-02-15 07:19] VITALS: BP 136/62
[2019-02-15] MEDS: ENOXAPARIN 40 MG/0.4ML SYR SC SCH (09:09)
[2019-02-15] MEDS: CLOPIDOGREL BISULFATE 75MG TAB PO SCH (09:10)
[2019-02-15] MEDS: METOPROLOL SUCC XL 50 MG TABCR 50 MG TAB.ER.24H PO SCH (09:10)
[2019-02-15] MEDS: predniSONE 20 MG TAB PO SCH (09:10)
[2019-02-15] MEDS: PANTOPRAZOLE SOD 40 MG TABEC PO SCH (09:10)
[2019-02-15] MEDS: SODIUM CHLORIDE 1 GR TAB PO SCH ×2 (09:10→16:46)
[2019-02-15 13:25] VITALS: BP 128/59
--- NOTE | 2019-02-15 14:21 | Hospitalist Progress Note ---
Subjective Progress Notes Subjective 83F admitted for hyponatremia. URBANO overnight, responding slowly to fluid restriction and NaCl PO. Patient Complains of: Neurological: No: Confusion, Weakness, Dizziness Physical Exam Vital Signs Date Time Temp Pulse Resp B/P (MAP) Pulse Ox O2 Delivery O2 Flow Rate FiO2 02/15/19 13:25 97.8 74 20 128/59 (82) 98 Nasal Cannula 2.0 Intake and Output 02/15/19 07:03 Intake Total 1070 ml Output Total 900 ml Balance 170 ml Intake Oral 1070 ml Output Urine Total 900 ml # Voids 2 # Bowel Movements 1 General Appearance: Alert, Awake, No Acute Distress, Afebrile Neuro: No Gross deficits Cardiovascular: Normal Rhythm & Peripheral Pulses Respiratory: No Respiratory Distress (b/l wheezing) GI: Soft and Non-Tender Result Diagram: 02/15/1954102/15/19541 Assessment and Plan Problems: (1) Hyponatremia Status: Chronic Assessment & Plan: Improved. She does have baseline low sodium secondary to c hronic/recurrent SIADH, but was lower than usual at admission. She has been placed on fluid restriction and NaCl tablet increased to 1g BID. (2) SIADH (syndrome of inappropriate ADH production) Status: Chronic Assessment & Plan: As above. (3) Asthma exacerbation Status: Acute Assessment & Plan: Stable. Lungs are essentially clear. She was started on azithromycin as an outpatient, this is completed. She is receiving nebulizers and oral prednisone. (4) Hyperkalemia Status: Acute Assessment & Plan: Her losartan and spironolactone have been discontinued. May be exacerbating her sodium level as well. Exam Sepsis Risk: No Definite Risk WATTERS RAJINDER PARKS DO Feb 15, 2019 14:21
[2019-02-15 18:57] VITALS: BP 142/72
[2019-02-15] MEDS: ACETAMINOPHEN 325 MG TAB PO PRN (21:42)
[2019-02-16 00:08] VITALS: BP 149/59
[2019-02-16] MEDS: ALBUTEROL/IPRATROPIUM 3 ML NEB NEB SCH ×3 (00:12→11:05)
[2019-02-16] MEDS: SALMETEROL/FLUTIC 250/50 1 INH INH SCH (05:15)
[2019-02-16 07:19] VITALS: BP 139/70
[2019-02-16] MEDS: PANTOPRAZOLE SOD 40 MG TABEC PO SCH (08:36)
[2019-02-16] MEDS: predniSONE 20 MG TAB PO SCH (08:36)
[2019-02-16] MEDS: CLOPIDOGREL BISULFATE 75MG TAB PO SCH (08:36)
[2019-02-16] MEDS: SODIUM CHLORIDE 1 GR TAB PO SCH (08:36)
[2019-02-16] MEDS: METOPROLOL SUCC XL 50 MG TABCR 50 MG TAB.ER.24H PO SCH (08:37)
[2019-02-16] MEDS: ENOXAPARIN 40 MG/0.4ML SYR SC SCH (08:37)
[2019-02-16] MEDS ORDERED: SODCTAB PO (13:39)
--- NOTE | 2019-02-16 14:00 | Hospitalist Depart ---
Discharge Summary Reason for Hosp/Final Diag: (1) Hyponatremia Status: Chronic Hospital Course & Plan: Improved. She does have baseline low sodium secondary to chronic/recurrent SIADH, but was lower than usual at admission. She has been placed on fluid restriction and NaCl tablet increased to 1g BID. She has expressed a desire to discharge home. (2) SIADH (syndrome of inappropriate ADH production) Status: Chronic Hospital Course & Plan: As above. (3) Asthma exacerbation Status: Acute Hospital Course & Plan: Stable. Lungs are essentially clear. She was started on azithromycin as an outpatient, this is completed. She is receiving nebulizers and oral prednisone. (4) Hyperkalemia Status: Acute Hospital Course & Plan: Her losartan and spironolactone have been on hold. Will resume on discharge and follow up with PCP for management. Departure Weight (Pounds): 125 Weight (Ounces): 8.0 Result Diagram: 02/15/19 0542 02/16/19524 Condition: Improved Discharge: Home, Self Care Discharge Instructions Home Meds Active Scripts Sodium Chloride (SODIUM CHLORIDE) 1 Gm Tab, 1 GM PO BID, #30 TAB Prov:TRAY LARSON 02/16/19 Clopidogrel Bisulfate (CLOPIDOGREL) 75 Mg Tablet, 1 TAB PO QDAY, #90 TAB 3 Refills Prov:RICHARD LYLES MD 12/19/18 Losartan Potassium (LOSARTAN POTASSIUM) 100 Mg Tablet, 100 MG PO QDAY, #90 TAB 3 Refills Prov:RICHARD LYLES MD 10/24/18 Albuterol Sulfate 90 Mcg/Act (PROAIR HFA 90 MCG/ACT) 8.5 Gm Hfa.aer.ad, 2 PUFF IH QID PRN for SHORTNESS OF BREATH, #1 INHALER 6 Refills Prov:RICHARD LYLES MD 10/11/18 Metoprolol Succinate (METOPROLOL SUCCINATE) 100 Mg Tab.er.24h, 1 TAB PO QDAY, #90 TAB 3 Refills Prov:RICHARD LYLES MD 07/19/18 Reported Medications Sodium Chloride (SODIUM CHLORIDE) 1 Gm Tab, 0.5 TAB PO BID, TAB 02/12/19 Azithromycin 250 Mg Tab (AZITHROMYCIN 250 MG TAB) 250 Mg Tablet, 1 TAB PO QDAY Takes two tabs on Day 1, one tab days 2-5 02/12/19 Spironolactone (SPIRONOLACTONE) 25 Mg Tablet, 1 TAB PO BID, TAB 02/12/19 Magnesium Oxide (Magnesium Oxide) 400 Mg Tablet, 400 MG PO QDAY 10/03/18 Fluticasone/Salmeterol (ADVAIR 250-50 DISKUS) 1 Each Disk.w.dev, 1 EACH IH BID 05/29/18 Oxygen (Oxygen) 2 L Inha, 2.5 L INH 10/03/12 Discontinued Reported Medications Omeprazole (OMEPRAZOLE) 20 Mg Capsule.dr, 1 CAP PO QDAY, CAP 09/29/17 Discontinued Scripts Ipratropium/Albuterol Sulfate (IPRAT-ALBUT 0.5-3(2.5) MG/3 ML) 3 Ml Ampul.neb, 3 ML IH QID PRN for SHORTNESS OF BREATH, #100 ML 6 Refills Prov:RICHARD LYLES MD 09/23/17 Furosemide (FUROSEMIDE) 20 Mg Tablet, 1 TAB PO QDAY, #30 TAB 3 Refills Prov:RICHARD LYLES MD 11/21/18 Sodium Polystyrene Sulfonate 15 Gm/60 Ml (KAYEXALATE 15 GM/60 ML) 15 Gm/60 Ml Oral.susp, 15 GM PO BID for 1 Day, #30 GM Prov:RICHARD LYLES MD 11/17/18 Amlodipine Besylate (AMLODIPINE BESYLATE) 10 Mg Tablet, 1 TAB PO QDAY, #30 TAB 6 Refills Prov:RICHARD LYLES MD 10/11/18 Sodium Chloride (SODIUM CHLORIDE) 1 Gm Tab, 1 GM PO BID, #60 TAB Prov:WENCESLAO CHAVIS DO 10/04/18 Diet: Regular, Fluid Restricted Activity: As Tolerated Special Instructions: Return to your normal fluid restriction. Have your blood drawn (BMP) on 02/19/19 with results going to your PCP to evaluate sodium level. Follow up with your PCP within 1-2 weeks for management of your chronic conditions, and follow up from hospitalization. Copies to: RICHARD LYLES MD ; Venous Thromboembolism Antithrombotics Is Pt On Any Antithrombotics?: Yes TRAY LARSON Feb 16, 2019 20:00
[2019-02-16] MEDS ORDERED: PRED-420 PO (14:05)
== END 2019-02-16 15:35 | disposition home or self-care (01) | DRG 644 ==
LOC: ER 17:41 → MED 20:29
PROVIDERS: ADMIT Internal Medicine; ATTEND Internal Medicine
DX: E22.2 Syndrome of inappropriate secretion of antidiuretic hormone (principal); J45.901 Unspecified asthma with (acute) exacerbation; E87.5 Hyperkalemia; I48.2 Chronic atrial fibrillation; I10 Essential (primary) hypertension; K21.9 Gastro-esophageal reflux disease without esophagitis; R09.02 Hypoxemia; Z88.8 Allergy status to other drugs, medicaments and biological substances; Z86.73 Personal history of transient ischemic attack (TIA), and cerebral infarction without residual deficits; Z90.710 Acquired absence of both cervix and uterus
CPT/HCPCS: 36415; 71046; 82040; 82247; 82310; 82374; 82435; 82565; 82947; 83735; 84075; 84132; 84155; 84295; 84450; 84460; 84484; 84520; 85025; 85379; 93005; 94640; 94667; 94668; 96360; 99284; J1650; J1940; J2930; J7030; J7512